=== PATIENT | male | born 1970 | race Caucasian/White ===

== ENCOUNTER 2016-08-04 00:51 | Inpatient (IN) ==
[2016-08-04] MEDS ORDERED: Ipratropium/Albuterol Neb 3 ML IH ONE (01:46)
[2016-08-04] MEDS ORDERED: methylPREDNISolone 125 MG/2 ML VIAL IVP ONE (01:46)
--- NOTE | 2016-08-04 01:50 | Emergency Department Note ---
Disposition Clinical Impression: COPD with acute exacerbation Disposition: Admitted As Inpatient Condition: Fair SOB HPI - General Chief Complaint: ED Shortness of Breath/Dyspnea Stated Complaint: MANOJ/COPD Time Seen by Provider: 08/04/16 01:14 Source: patient Limitations: no limitations Nursing Notes Reviewed: Yes Vital Signs Reviewed: Yes - History of Present Illness Javad is a 45-year-old male with a history of oxygen-dependent COPD who presents emergency Department with a chief complaint of dyspnea. This has been progressive over the last day. He has recently had a cough and URI symptoms. He states even the slightest exertion gets him short of breath. He has a history of COPD and is on the lung transplant list at [facility]. He is a former smoker but has not smoked for 5 years. He was oxygen continuously. He has had no fevers or chills. No productive cough. No history of DVT or PE. Denies any lower extremity swelling. Denies any abdominal pain, nausea or vomiting. Denies any chest pressure pain. No history of coronary artery disease. Denies any lightheadedness or syncopy. Consistency/Duration: constant Cough present: Yes - Related Data Home Medications Medication Instructions Recorded Confirmed Albuterol Neb [Proventil Neb] 2.5 mg IH Q4HR PRN 06/05/15 07/11/16 ClonazePAM [Klonopin] 0.5 mg PO BID 06/05/15 07/11/16 Docusate [Colace] 100 mg PO DAILY PRN 06/05/15 07/11/16 Glimepiride [Amaryl] 2 mg PO DAILY 06/05/15 07/11/16 Metformin HCl [Glumetza] 500 mg PO BID 06/05/15 07/11/16 Metoprolol [Lopressor] 100 mg PO BID 06/05/15 07/11/16 OxyCODONE/APAP 10/325 [Percocet 1 each PO Q6H PRN 06/05/15 07/11/16 10/325] Ranitidine HCl [Zantac] 150 mg PO BID 06/05/15 07/11/16 Roflumilast [Daliresp] 500 mcg PO DAILY 06/05/15 07/11/16 Tobramycin for INHALATION [Bebeto 5 ml IH Q12HR 06/05/15 07/11/16 300 mg/5 ml Solution] Zolpidem [Ambien] 5 mg PO HS 06/05/15 07/11/16 Aspirin 81 mg PO DAILY 11/16/15 07/11/16 Albuterol Sulfate [Proair Hfa] 2 puff IH Q4H PRN 02/27/16 07/11/16 Loratadine [Claritin] 10 mg PO DAILY PRN 02/27/16 07/11/16 Oxygen 3 l NS AD 02/27/16 07/11/16 Potassium Chloride [K-Tab ER] 10 meq PO DAILY 02/27/16 07/11/16 Simvastatin [Zocor] 40 mg PO HS 02/27/16 07/11/16 Previous Rx's Medication Instructions Recorded Budesonide/Formoterol 160/4.5 2 puff IH BIDR 5 Days 11/07/15 [Symbicort 160/4.5] Losartan [Cozaar] 25 mg PO DAILY tablet 11/07/15 Amoxicillin/Clavulanate [Augmentin] 875 mg PO BIDWM #8 tablet 07/15/16 Lactobacillus [Culturelle] 1 each PO BID #8 cap.sprink 07/15/16 Levofloxacin [Levaquin] 750 mg PO DAILY #4 tablet 07/15/16 PredniSONE 10 mg PO BIDWM #8 tablet 07/15/16 Allergies Allergy/AdvReac Type Severity Reaction Status Date / Time tiotropium Allergy Hives Verified 02/27/16 14:47 [From Spiriva with HandiHaler] All systems ED: reviewed and negative except as stated. Constitutional: Denies: fever Cardiovascular: Reports: dyspnea on exertion. Denies: chest pain, syncope Respiratory: Reports: cough, dyspnea, wheezes Gastrointestinal: Denies: abdominal pain, nausea, vomiting Musculoskeletal: Denies: back pain, neck pain Integumentary: Denies: rash Neurological: Denies: headache, weakness, numbness Past Medical History - Past Medical History Medical history: Reports: arthritis, asthma, COPD, coronary artery disease, diabetes, GERD, hyperlipidemia, hypertension Surgical history: Reports: angioplasty/stent, herniorrhaphy, orthopedic, other ( Left rotator cuff repair) Psychiatric history: Reports: anxiety - Social History Smoking Status: Former smoker Smokeless Tobacco Status: No Alcohol use: Reports: rarely Drug use: Reports: other Physical Exam General: Appears well, alert and oriented x 3. Talking in short sentences but otherwise pleasant Cardiovascular: Tachycardic between 95 and 105.. S1, S2. No murmurs, rubs or gallops. Respiratory: Coarse breath sounds with end-expiratory wheezing. Mild to moderate respiratory distress. No retractions. No abdominal breathing. Occasional dry cough. Abdomen: Soft, nontender. No guarding, rebound or rigidity. Eyes: conjunctiva clear HENT: Normocephalic, no signs of head injury. No oral mucosal lesions. Moist mucous membranes Neuro: Alert and oriented 3 Musculoskeletal: No joint tenderness or swelling. No calf tenderness, asymmetry or signs of DVT Skin: No lesions. No diaphoresis. Normal turgor. Normal color Psych: Appropriate - General Limitations: no limitations General appearance: alert, in no apparent distress Course Course Narrative: 45-year-old oxygen dependent male presents to the emergency department with dyspnea. On exam bilateral expiratory wheezing and moderate respiratory distress. He was given 3 breathing treatments, Solu-Medrol, antibiotics with some improvement. He was tachycardic around 115 so we did order a d-dimer which was not elevated. Chest x-ray shows some chronic changes but no evidence of infection or other acute process. Despite treatment patient is not improving enough to be comfortable with discharge home. Patient agrees with this and thinks he would benefit from staying. He is requiring more oxygen than normal to keep up his oxygen saturation. Plan to admit for COPD exacerbation. Vital Signs Temperature 98.2 F 08/04/16 00:52 Pulse Rate 116 08/04/16 00:52 Respiratory Rate 24 08/04/16 00:52 Blood Pressure 136/88 08/04/16 00:52 O2 Sat by Pulse Oximetry 94 L 08/04/16 00:52 Temperature 98.2 F 08/04/16 00:52 Pulse Rate 102 08/04/16 05:30 Respiratory Rate 24 08/04/16 05:30 Blood Pressure 148/91 08/04/16 05:30 O2 Sat by Pulse Oximetry 95 08/04/16 05:30 Oxygen Delivery Oxygen Delivery Nasal Cannula Shortness of Breath/Dyspnea - Lab Data Result diagrams: 08/04/16 01:56 08/04/16 01:56 Lab Results 08/04/16 08/04/16 08/04/16 Range/Units 01:56 01:56 01:56 WBC 11.3 H (4.3-11.1) K/mcL RBC 4.70 (4.19-5.50) M/mcL Hgb 13.3 (12.9-16.9) g/dL Hct 43.8 (37.5-50.1) % MCV 93.2 (83.0-100.0) fL MCH 28.3 (28.0-33.3) pg MCHC 30.4 L (31.6-35.5) g/dL RDW 13.2 (11.5-14.5) % Plt Count 211 (140-400) K/mcL MPV 11.0 (9.4-12.4) fL Immature Gran % 0.4 (0-4) % Seg Neutrophils % 77.8 % Lymphocytes % 12.6 % Monocytes % 7.5 % Eosinophils % 1.5 % Basophils % 0.2 % Neutrophils # 8.8 (1.6-8.9) K/mcL Lymphocytes # 1.4 (0.6-4.6) K/mcL Monocytes # 0.9 (0.0-1.3) K/mcL Eosinophils # 0.2 (0.0-0.6) K/mcL Basophils # 0.0 (0.0-0.2) K/mcL D-Dimer (0-500) ng/mLFEU Sodium 143 (136-145) mEq/L Potassium 4.2 (3.5-4.5) mEq/L Chloride 105 (98-109) mEq/L Carbon Dioxide 31 H (19-29) mEq/L BUN 12 (8-26) mg/dL Creatinine 0.69 L (0.72-1.25) mg/dL Est GFR ( Amer) > 60 (> 60) Est GFR (Non-Af Amer) > 60 (> 60) BUN/Creatinine Ratio 17 (6-26) Glucose 96 (70-99) mg/dL Calculated Osmolality 296 (280-300) Calcium 9.2 (8.6-10.8) mg/dL Troponin I 0.02 (0-0.03) ng/mL 08/04/16 Range/Units 01:56 WBC (4.3-11.1) K/mcL RBC (4.19-5.50) M/mcL Hgb (12.9-16.9) g/dL Hct (37.5-50.1) % MCV (83.0-100.0) fL MCH (28.0-33.3) pg MCHC (31.6-35.5) g/dL RDW (11.5-14.5) % Plt Count (140-400) K/mcL MPV (9.4-12.4) fL Immature Gran % (0-4) % Seg Neutrophils % % Lymphocytes % % Monocytes % % Eosinophils % % Basophils % % Neutrophils # (1.6-8.9) K/mcL Lymphocytes # (0.6-4.6) K/mcL Monocytes # (0.0-1.3) K/mcL Eosinophils # (0.0-0.6) K/mcL Basophils # (0.0-0.2) K/mcL D-Dimer 459 (0-500) ng/mLFEU Sodium (136-145) mEq/L Potassium (3.5-4.5) mEq/L Chloride (98-109) mEq/L Carbon Dioxide (19-29) mEq/L BUN (8-26) mg/dL Creatinine (0.72-1.25) mg/dL Est GFR ( Amer) (> 60) Est GFR (Non-Af Amer) (> 60) BUN/Creatinine Ratio (6-26) Glucose (70-99) mg/dL Calculated Osmolality (280-300) Calcium (8.6-10.8) mg/dL Troponin I (0-0.03) ng/mL - EKG Data EKG results narrative: EKG shows a sinus tachycardia with a rate of [address] elevation or depression. No ischemic T-wave changes. Normal axis. Previous EKG on 2010 shows similar wave morphology and tachycardia without any acute ischemic changes Attestation Statement - Attestation Attestation: Dr Farrell note: Pt seen in conjunction w/ Resident Dr Jin Hines; Please see his charting for complete documentation; I agree w/ pt's treatment and disposition and spent face to face time with the pt; x ray results reviewed; no focal process; sats stable @ time of admission; no fever/chest pain; o2 dependend @ home for years ;
[2016-08-04 02:02] LABS: Basophils % 0.2 %; Eosinophils # 0.2 K/mcL (0.0-0.6); Eosinophils % 1.5 %; Hematocrit 43.8 % (37.5-50.1); Hemoglobin 13.3 g/dL (12.9-16.9); Immature Granulocytes % 0.4 % (0-4); Lymphocytes # 1.4 K/mcL (0.6-4.6); Lymphocytes % 12.6 %; Mean Corpuscular HGB Conc 30.4 g/dL (31.6-35.5); Mean Corpuscular Hemoglobin 28.3 pg (28.0-33.3); Mean Corpuscular Volume 93.2 fL (83.0-100.0); Monocytes # 0.9 K/mcL (0.0-1.3); Monocytes % 7.5 %; Neutrophils # 8.8 K/mcL (1.6-8.9); Platelet Count 211 K/mcL (140-400); Red Cell Distribution Width 13.2 % (11.5-14.5); Segmented Neutrophils % 77.8 %
[2016-08-04 02:15] LABS: BUN/Creatinine Ratio 17 (6-26); Blood Urea Nitrogen 12 mg/dL (8-26); Carbon Dioxide 31 mEq/L (19-29); Chloride 105 mEq/L (98-109); Potassium 4.2 mEq/L (3.5-4.5); Sodium 143 mEq/L (136-145); eGFR For African Americans > 60 (> 60)
[2016-08-04 02:16] LABS: Calcium 9.2 mg/dL (8.6-10.8); Glucose 96 mg/dL (70-99); Osmolality,Calculated 296 (280-300); eGFR For Non-African Americans > 60 (> 60)
[2016-08-04] MEDS ORDERED: Levofloxacin 750 MG/150 ML 750 MG/150 ML BAG IVPB ONE (03:18)
[2016-08-04] MEDS ORDERED: *HR* OxyCODONE/APAP 5/325 TABLET PO ONE (04:54)
[2016-08-04] MEDS ORDERED: Naloxone 0.4 MG/ML INJ IVP PRN (07:16)
[2016-08-04] MEDS ORDERED: D5% in Water 1,000 ML IV PRN (07:22)
[2016-08-04] MEDS ORDERED: Ondansetron 4 MG/2 ML VIAL IVP PRN (07:22)
[2016-08-04] MEDS ORDERED: Acetaminophen 325 MG TABLET PO PRN (07:22)
[2016-08-04] MEDS ORDERED: Dextrose Gel 15 GM PO PRN ×2 (07:22)
[2016-08-04] MEDS ORDERED: Ipratropium/Albuterol Neb 3 ML IH PRN (07:22)
[2016-08-04] MEDS ORDERED: *HR* Dextrose 50 % in Water (Syg) 50 ML SYRINGE IVP PRN (07:22)
[2016-08-04] MEDS ORDERED: hydrALAZINE 25 MG TABLET PO PRN (07:52)
--- NOTE | 2016-08-04 08:02 | Internal Med History&Physical ---
Date of Encounter: 08/04/16 Time of Encounter: 07:30 Assessment and Plan (1) Acute exacerbation of chronic obstructive airways disease Current visit: Yes Status: Acute History of COPD with known advanced cystic bronchiectasis, oxygen dependent on 2 L. Patient follows at [facility] as a lung transplant candidate. His last hospitalization for COPD exacerbation was on 07/11/2016, he was admitted to [facility] and was treated with IV Zosyn and IV Levaquin for 3 days. Chest x -ray at that time showed no acute process, chronic areas of consolidation with known bronchiectasis in the right upper lobe, right middle lobe and left upper lobe. He went home but never recovered. Last Wednesday, his symptoms worsen and he developed persistent productive cough associated with progressive shortness of breath and the need to take a deep breath after a few steps. He has a pulse oximeter at home and it read 76% on his usual 2 L of oxygen via NC so he had to bump it up to 3 L. patient also reports dealing with chronic sinusitis for the past 6 months. Chest x-ray shows bibasilar atelectasis. EKG showed sinus tachycardia heart rate 110, no acute ischemic changes. Troponin negative 1. WBC 11.3. Check CT of the chest without contrast to rule out pneumonia given recent hospitalization for COPd exacerbation without complete resolution of symptoms. Albuterol/Atrovent nebulizations every 4 hours. Mucinex. mucomyst nebs. Symbicort. Doxycycline. (2) Community acquired pneumonia Current visit: Yes Status: Suspected plan as above. (3) Bronchiectasis Current visit: No Status: Chronic plan as above. Qualifiers: Bronchiectasis type: with acute exacerbation Qualified Code(s): J47.1 - Bronchiectasis with (acute) exacerbation (4) Coronary artery disease Current visit: Yes Status: Chronic stable. continue aspirin, metoprolol and statin. Qualifiers: Coronary Disease-Associated Artery/Lesion type: unspecified vessel or lesion type [place] vs. transplanted heart: [place] heart Associated angina: without angina Qualified Code(s): I25.10 - Atherosclerotic heart disease of [place] coronary artery without angina pectoris (5) Chronic hypoxemic respiratory failure Current visit: No Status: Chronic patient uses 2L NC for the past 4 years. (6) DM type 2 (diabetes mellitus, type 2) Current visit: No Status: Chronic ISS. diabetic diet. Qualifiers: Diabetes mellitus complication status: without complication Diabetes mellitus custodial insulin use: without custodial use Qualified Code(s): E11.9 - Type 2 diabetes mellitus without complications (7) Hypertension Current visit: No Status: Chronic controlled. losartan home dose. Qualifiers: Hypertension type: essential hypertension Qualified Code(s): I10 - Essential (primary) hypertension Internal Medicine - H&P: HPI Chief complaint: shortness of breath and productive cough since Wednesday. Admitted From: Home Plans for Post Hospital Care: Home History of present illness: Mr. Andres is a 45 year old male with past medical history of COPD with advanced cystic bronchiectasis, oxygen dependent on 2 L, diabetes mellitus, CAD s/p stent, hypertension and hyperlipidemia. Patient follows at [facility] as a lung transplant candidate. His last hospitalization for COPD exacerbation was on , he was admitted to [facility] and was treated with IV Zosyn and IV Levaquin for 3 days. Chest x-ray at that time showed no acute process, chronic areas of consolidation with known bronchiectasis in the right upper lobe, right middle lobe and left upper lobe. He went home but never recovered. Last Wednesday, his symptoms worsen and he developed persistent productive cough associated with progressive shortness of breath and the need to take a deep breath after a few steps. He has a pulse oximeter at home and it read 76% on his usual 2 L of oxygen via NC so he had to bump it up to 3 L. patient also reports dealing with chronic sinusitis for the past 6 months. No chest pain. No syncope. No palpitations. No bleeding. No abdominal pain. No nausea. No vomiting. No change in bowel movement. No urinary complaints. No headaches. No focal deficit. Past Med Surg Social Fam HX - Past Medical History Medical history: arthritis, asthma, COPD, coronary artery disease, diabetes, GERD, hyperlipidemia, hypertension Psychiatric history: anxiety - Past Surgical History Surgical History: angioplasty/stent, herniorrhaphy, orthopedic, other (Left rotator cuff repair) - Social History Smoking Status: Former smoker Smokeless Tobacco Status: No Alcohol use: rarely Drug use: other - Family History Mother Living Status: Hx Family Cancer: Yes (breast) Hx Family Autoimmune Disorders: Yes (Rheumatiod arthritis) Father Adopted: No Family Member Ethnicity: Non- Living Status: Hx Family Respiratory Disorders: Yes (COPD) Hx Family Endocrine Disorder: Yes (Diabetes) Internal Medicine - H&P: Meds Albuterol Neb [Proventil Neb] 2.5 mg IH Q4HR PRN 06/05/15 [History] ClonazePAM [Klonopin] 0.5 mg PO BID 06/05/15 [History] Docusate [Colace] 100 mg PO DAILY PRN 06/05/15 [History] Glimepiride [Amaryl] 2 mg PO DAILY 06/05/15 [History] Metformin HCl [Glumetza] 500 mg PO BID 06/05/15 [History] Metoprolol [Lopressor] 100 mg PO BID 06/05/15 [History] OxyCODONE/APAP 10/325 [Percocet 10325] 1 each PO Q6H PRN 06/05/15 [History] Ranitidine HCl [Zantac] 150 mg PO BID 06/05/15 [History] Roflumilast [Daliresp] 500 mcg PO DAILY 06/05/15 [History] Tobramycin for INHALATION [Bebeto 300 mg/5 ml Solution] 5 ml IH Q12HR 06/05/15 [ History] Zolpidem [Ambien] 5 mg PO HS 06/05/15 [History] Budesonide/Formoterol 160/4.5 [Symbicort 160/4.5] 2 puff IH BIDR 5 Days [Rx] Losartan [Cozaar] 25 mg PO DAILY tablet 11/07/15 [Rx] Aspirin 81 mg PO DAILY 11/16/15 [History] Albuterol Sulfate [Proair Hfa] 2 puff IH Q4H PRN 02/27/16 [History] Loratadine [Claritin] 10 mg PO DAILY PRN 02/27/16 [History] Oxygen 3 l NS AD 02/27/16 [History] Potassium Chloride [K-Tab ER] 10 meq PO DAILY 02/27/16 [History] Simvastatin [Zocor] 40 mg PO HS 02/27/16 [History] Amoxicillin/Clavulanate [Augmentin] 875 mg PO BIDWM #8 tablet 07/15/16 [Rx] Lactobacillus [Culturelle] 1 each PO BID #8 cap.sprink 07/15/16 [Rx] Levofloxacin [Levaquin] 750 mg PO DAILY #4 tablet 07/15/16 [Rx] PredniSONE 10 mg PO BIDWM #8 tablet 07/15/16 [Rx] Allergies tiotropium [From Spiriva with HandiHaler] Allergy (Verified 08/04/16 06:40) Hives All Systems PM: A 10-system review of systems was performed and is negative for pertinent findings except as documented above in the HPI. - Constitutional Vitals: Temp Pulse Resp BP Pulse Ox 98.2 F 102 20 144/91 95 08/04/16 00:52 08/04/16 05:30 08/04/16 06:18 08/04/16 06:18 08/04/16 05:30 General appearance: Present: cooperative, mild distress, A&O X 3, morbidly obese , pleasant, answers questions appropriately - Eye Eye exam: Present: PERRL, sclera anicteric - Neck Neck exam general surgery: Present: supple, trachea midline. Absent: lymphadenopathy - Respiratory Additional comments: Left lung: Diffuse wheezing, diminished air entry. Right lung: Dry crackles, diffusely. Diminished air entry. - Cardiovascular Cardiovascular exam: Present: tachycardia - GI/Abdominal GI/Abdominal exam: Present: normal bowel sounds, soft. Absent: distended, tenderness - Extremities Exam Extremities exam: Present: radial pulses palpable and symetrical. Absent: cyanotic, joint swelling, mottling, pedal edema - Back Exam Back exam: Absent: CVA tenderness (L), CVA tenderness (R) - Neurological Exam Neurological exam: Present: alert, oriented X3, no focal deficits. Absent: facial droop, speech deficit Internal Med - H&P Results - Labs CBC & Chem 7: 08/04/16 01:56 08/04/16 01:56
[2016-08-04] MEDS: Doxycycline 100 MG CAPSULE PO SCH ×2 (08:30→16:41)
[2016-08-04] MEDS: Aspirin 81 MG TAB.CHEW PO SCH (08:30)
[2016-08-04] MEDS: Insulin LISPRO 300 UNITS/3 ML VIAL SQ SCH ×4 (08:30→22:11)
[2016-08-04] MEDS: *HR* OxyCODONE/APAP 10/325 TABLET PO PRN ×3 (11:27→23:53)
[2016-08-04] MEDS: Ipratropium/Albuterol Neb 3 ML IH SCH ×5 (11:41→23:17)
[2016-08-04] MEDS: Acetylcysteine 10% 2 ML INHSOL IH SCH ×3 (11:42→23:17)
[2016-08-04] MEDS: Budesonide/Formoterol 160/4.5 MDI IH SCH ×2 (11:46→22:03)
--- NOTE | 2016-08-04 13:01 | Electrocardiograph Report ---
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
[2016-08-04] MEDS: *HR* Heparin 5,000 UNIT/ML VIAL SQ SCH (16:41)
[2016-08-04] MEDS: MethylPREDNISolone 40 MG/ML VIAL IVP SCH (16:42)
[2016-08-05] MEDS: Ipratropium/Albuterol Neb 3 ML IH SCH ×5 (04:41→20:58)
[2016-08-05 06:04] LABS: Basophils % 0.1 %; Hematocrit 43.5 % (37.5-50.1); Hemoglobin 13.2 g/dL (12.9-16.9); Immature Granulocytes % 0.5 % (0-4); Lymphocytes # 1.3 K/mcL (0.6-4.6); Mean Corpuscular HGB Conc 30.3 g/dL (31.6-35.5); Mean Corpuscular Hemoglobin 28.8 pg (28.0-33.3); Mean Platelet Volume 12.8 fL (9.4-12.4); Monocytes # 1.3 K/mcL (0.0-1.3); Monocytes % 6.8 %; Neutrophils # 16.4 K/mcL (1.6-8.9); Platelet Count 159 K/mcL (140-400); Red Blood Count 4.58 M/mcL (4.19-5.50); Red Cell Distribution Width 13.5 % (11.5-14.5); Segmented Neutrophils % 85.6 %
[2016-08-05 06:23] LABS: BUN/Creatinine Ratio 28 (6-26); Blood Urea Nitrogen 19 mg/dL (8-26); Calcium 9.3 mg/dL (8.6-10.8); Carbon Dioxide 27 mEq/L (19-29); Chloride 104 mEq/L (98-109); Glucose 221 mg/dL (70-99); Magnesium 1.7 mg/dL (1.6-2.6); Osmolality,Calculated 303 (280-300); Potassium 4.1 mEq/L (3.5-4.5); Sodium 142 mEq/L (136-145); eGFR For African Americans > 60 (> 60); eGFR For Non-African Americans > 60 (> 60)
[2016-08-05] MEDS: *HR* Heparin 5,000 UNIT/ML VIAL SQ SCH ×2 (06:27→17:17)
[2016-08-05] MEDS: *HR* OxyCODONE/APAP 10/325 TABLET PO PRN ×3 (06:27→19:26)
[2016-08-05] MEDS: Budesonide/Formoterol 160/4.5 MDI IH SCH ×2 (07:58→20:58)
[2016-08-05] MEDS: Acetylcysteine 10% 2 ML INHSOL IH SCH ×2 (07:58→15:00)
[2016-08-05] MEDS: Insulin LISPRO 300 UNITS/3 ML VIAL SQ SCH ×4 (09:15→22:42)
[2016-08-05] MEDS: Aspirin 81 MG TAB.CHEW PO SCH (09:20)
[2016-08-05] MEDS: Doxycycline 100 MG CAPSULE PO SCH (09:20)
[2016-08-05] MEDS: MethylPREDNISolone 40 MG/ML VIAL IVP SCH ×3 (09:21→22:37)
--- NOTE | 2016-08-05 13:41 | Internal Med Progress Note ---
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 start cefepime (prior culture February Pseudomonas resistant to cipro) discontinue doxycycline increase dose of solumedrol to 40 mg q6h may benefit from inhaled tobramycin as outpatient Is on [facility] lung transplant list high risk of resp failure (2) Bronchiectasis Current Visit: No Status: Chronic Qualifiers: Bronchiectasis type: with acute exacerbation Qualified Code(s): J47.1 - Bronchiectasis with (acute) exacerbation (3) DM type 2 (diabetes mellitus, type 2) Current Visit: No Status: Chronic Assessment and plan: ISS Qualifiers: Diabetes mellitus complication status: without complication Diabetes mellitus penitentiary insulin use: without dispatcher radio use Qualified Code(s): E11.9 - Type 2 diabetes mellitus without complications (4) Hyperlipidemia Current Visit: No Status: Chronic Qualifiers: Hyperlipidemia type: unspecified Qualified Code(s): E78.5 - Hyperlipidemia , unspecified (5) Hypertension Current Visit: No Status: Chronic Assessment and plan: stable on hydralazine as needed Qualifiers: Hypertension type: essential hypertension Qualified Code(s): I10 - Essential (primary) hypertension (6) ELIOT (obstructive sleep apnea) Current Visit: No Status: Chronic - Subjective Interval history: the patient is still bringing up greyish phlegm , very SOB, denies CP , no fever , no abdominal pain or dysuria - Constitutional Vitals: Temp Pulse Resp BP Pulse Ox 97.7 F 74 16 132/84 97 08/05/16 10:49 08/05/16 10:49 08/05/16 11:13 08/05/16 10:49 08/05/16 11:13 General appearance: Present: cooperative, mild distress, A&O X 3, morbidly obese , pleasant, answers questions appropriately - Head Head exam: Present: atraumatic, normocephalic - Eye Eye exam: Present: PERRL, conjuntiva pink, sclera anicteric Pupils: Present: PERRL - Neck Neck exam general surgery: Present: supple, trachea midline. Absent: lymphadenopathy - Respiratory Respiratory exam: Present: CTAB, wheezes (right upper lung wheezing and crackles ). Absent: accessory muscle use, rales, rhonchi - Cardiovascular Cardiovascular exam: Present: RRR, +S1, +S2. Absent: diastolic murmur, gallop, rubs, systolic murmur - GI/Abdominal GI/Abdominal exam: Present: normal bowel sounds, soft, no peritoneal signs. Absent: distended, tenderness - Extremities Exam Extremities exam: Present: warm, radial pulses palpable and symetrical. Absent : calf tenderness, cyanotic, pedal edema - Neurological Exam Neurological exam: Present: CN II-XII intact, oriented X3, no focal deficits. Absent: pronater drift, facial droop, speech deficit - Skin Skin exam: Present: dry, intact Internal Medicine: Result - Labs CBC & Chem 7: 08/05/16 04:40 08/05/16 04:40 Labs: Short CBC 08/05/16 Range/Units 04:40 WBC 19.1 H D (4.3-11.1) K/mcL Hgb 13.2 (12.9-16.9) g/dL Hct 43.5 (37.5-50.1) % Plt Count 159 (140-400) K/mcL Neutrophils # 16.4 H (1.6-8.9) K/mcL BMP 08/05/16 04:40 Sodium 142 Potassium 4.1 Chloride 104 Carbon Dioxide 27 BUN 19 Creatinine 0.69 L Glucose 221 H Calcium 9.3 - ABG Interpretation ABG results: PT/INR, D-dimer D-Dimer 459 ng/mLFEU (0-500) 08/04/16 01:56 Consult Discharge Plan - Plan Referrals: Madeline Sutton PRESCHOOL ASSISTANT TEACHER [Advanced Practice Nurse] - 08/14/16 11:30 am
[2016-08-05] MEDS: Cefepime HCl 1,000 MG in D5% in Water (Mini-Bag+) 100 ML IVPB SCH (14:36)
[2016-08-05] MEDS: Furosemide 40 MG TABLET PO SCH (14:37)
[2016-08-05] MEDS ORDERED: Sodium Chloride for inhalation 3 ML VIAL IH ONE (16:46)
[2016-08-06] MEDS: Ipratropium/Albuterol Neb 3 ML IH SCH ×7 (00:09→23:58)
[2016-08-06] MEDS: Acetylcysteine 10% 2 ML INHSOL IH SCH ×4 (00:09→20:25)
[2016-08-06] MEDS: *HR* OxyCODONE/APAP 10/325 TABLET PO PRN ×4 (01:42→21:08)
[2016-08-06] MEDS: Cefepime HCl 1,000 MG in D5% in Water (Mini-Bag+) 100 ML IVPB SCH ×2 (01:42→14:06)
[2016-08-06] MEDS: MethylPREDNISolone 40 MG/ML VIAL IVP SCH ×4 (04:10→19:43)
[2016-08-06] MEDS: *HR* Heparin 5,000 UNIT/ML VIAL SQ SCH ×2 (05:54→17:53)
[2016-08-06 06:39] LABS: Hemoglobin 12.3 g/dL (12.9-16.9); Mean Corpuscular Hemoglobin 27.9 pg (28.0-33.3); Mean Platelet Volume 12.6 fL (9.4-12.4); Platelet Count 177 K/mcL (140-400); Red Blood Count 4.41 M/mcL (4.19-5.50); Red Cell Distribution Width 13.5 % (11.5-14.5)
[2016-08-06 06:53] LABS: BUN/Creatinine Ratio 26 (6-26); Blood Urea Nitrogen 18 mg/dL (8-26); Carbon Dioxide 32 mEq/L (19-29); Chloride 102 mEq/L (98-109); Glucose 134 mg/dL (70-99); Osmolality,Calculated 298 (280-300); Potassium 3.9 mEq/L (3.5-4.5); Sodium 142 mEq/L (136-145); eGFR For African Americans > 60 (> 60); eGFR For Non-African Americans > 60 (> 60)
[2016-08-06] MEDS: Insulin LISPRO 300 UNITS/3 ML VIAL SQ SCH ×4 (08:17→21:09)
[2016-08-06] MEDS: Budesonide/Formoterol 160/4.5 MDI IH SCH ×3 (08:21→20:25)
--- NOTE | 2016-08-06 09:18 | Internal Med Progress Note ---
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 Preliminary sputum culture Gram negative rods Continue cefepime day#2 (prior culture February Pseudomonas resistant to cipro) Continue solumedrol to 40 mg q6h may benefit from inhaled tobramycin as outpatient Is on [facility] lung transplant list high risk of resp failure (2) Bronchiectasis Current Visit: No Status: Chronic Qualifiers: Bronchiectasis type: with acute exacerbation Qualified Code(s): J47.1 - Bronchiectasis with (acute) exacerbation (3) DM type 2 (diabetes mellitus, type 2) Current Visit: No Status: Chronic Assessment and plan: ISS Qualifiers: Diabetes mellitus complication status: without complication Diabetes mellitus usp insulin use: without termite control service representative use Qualified Code(s): E11.9 - Type 2 diabetes mellitus without complications (4) Hyperlipidemia Current Visit: No Status: Chronic Qualifiers: Hyperlipidemia type: unspecified Qualified Code(s): E78.5 - Hyperlipidemia , unspecified (5) Hypertension Current Visit: No Status: Chronic Assessment and plan: stable on hydralazine as needed Qualifiers: Hypertension type: essential hypertension Qualified Code(s): I10 - Essential (primary) hypertension (6) ELIOT (obstructive sleep apnea) Current Visit: No Status: Chronic - Time Spent With Patient 25 - 35 minutes - Subjective Interval history: Patient reports that he is feeling better this morning. Still complains of wheezing, which is chronic. Requiring 3L O2, but more active today. Urinating well. Stooling well. - Constitutional Vitals: Temp Pulse Resp BP Pulse Ox 98.1 F 72 16 138/80 97 08/06/16 07:38 08/06/16 07:38 08/06/16 07:38 08/06/16 07:38 08/06/16 07:38 General appearance: Present: cooperative, mild distress, A&O X 3, morbidly obese , pleasant, answers questions appropriately - Head Head exam: Present: atraumatic, normocephalic - Eye Eye exam: Present: EOMI, PERRL, sclera anicteric - Neck Neck exam general surgery: Present: supple, trachea midline - Respiratory Respiratory exam: Present: rhonchi (right upper lung with crackles and rhonchi) , wheezes. Absent: accessory muscle use, respiratory distress, tachypnea - Cardiovascular Cardiovascular exam: Present: RRR, +S1, +S2. Absent: diastolic murmur, gallop, rubs, systolic murmur - GI/Abdominal GI/Abdominal exam: Present: normal bowel sounds, soft (obese), no peritoneal signs. Absent: distended, tenderness - Extremities Exam Extremities exam: Present: warm. Absent: cyanotic, pedal edema - Neurological Exam Neurological exam: Present: CN II-XII intact, oriented X3, no focal deficits. Absent: pronater drift, facial droop, speech deficit - Skin Skin exam: Present: dry, intact Internal Medicine: Result - Labs CBC & Chem 7: 08/06/16 05:10 08/06/16 05:10 Labs: Short CBC 08/06/16 Range/Units 05:10 WBC 16.0 H (4.3-11.1) K/mcL Hgb 12.3 L (12.9-16.9) g/dL Hct 41.0 (37.5-50.1) % Plt Count 177 (140-400) K/mcL BMP 08/06/16 05:10 Sodium 142 Potassium 3.9 Chloride 102 Carbon Dioxide 32 H BUN 18 Creatinine 0.68 L Glucose 134 H Calcium 9.0 - ABG Interpretation ABG results: PT/INR, D-dimer D-Dimer 459 ng/mLFEU (0-500) 08/04/16 01:56 Consult Discharge Plan - Plan Referrals: Madeline Sutton, KRAFT MILL OPERATOR [Advanced Practice Nurse] - 08/14/16 11:30 am - Attending Attestation I examined this patient and my medical decision-making was reviewed with the DISPATCH CLERK/PA/Advanced Practice Nurse/Resident Physician. I agree with the documented findings, disposition and treatment plan as described except to the extent set forth below. <Joseph Kohler H - Last Filed: 08/06/16 10:47> Date of Encounter: 08/06/16 - Assessment and plan (1) Acute exacerbation of chronic obstructive airways disease Current Visit: Yes Status: Acute (2) Bronchiectasis Current Visit: No Status: Chronic Qualifiers: Bronchiectasis type: with acute exacerbation Qualified Code(s): J47.1 - Bronchiectasis with (acute) exacerbation (3) DM type 2 (diabetes mellitus, type 2) Current Visit: No Status: Chronic Qualifiers: Diabetes mellitus complication status: without complication Diabetes mellitus usp insulin use: without usp use Qualified Code(s): E11.9 - Type 2 diabetes mellitus without complications (4) Hyperlipidemia Current Visit: No Status: Chronic Qualifiers: Hyperlipidemia type: unspecified Qualified Code(s): E78.5 - Hyperlipidemia , unspecified (5) Hypertension Current Visit: No Status: Chronic Qualifiers: Hypertension type: essential hypertension Qualified Code(s): I10 - Essential (primary) hypertension (6) ELIOT (obstructive sleep apnea) Current Visit: No Status: Chronic - Constitutional Vitals: Temp Pulse Resp BP Pulse Ox 98.1 F 72 16 138/80 97 08/06/16 07:38 08/06/16 07:38 08/06/16 07:38 08/06/16 07:38 08/06/16 07:38 Internal Medicine: Result - Labs CBC & Chem 7: 08/06/16 05:10 08/06/16 05:10 Labs: Short CBC 08/06/16 Range/Units 05:10 WBC 16.0 H (4.3-11.1) K/mcL Hgb 12.3 L (12.9-16.9) g/dL Hct 41.0 (37.5-50.1) % Plt Count 177 (140-400) K/mcL BMP 08/06/16 05:10 Sodium 142 Potassium 3.9 Chloride 102 Carbon Dioxide 32 H BUN 18 Creatinine 0.68 L Glucose 134 H Calcium 9.0 - ABG Interpretation ABG results: PT/INR, D-dimer D-Dimer 459 ng/mLFEU (0-500) 08/04/16 01:56 - Attending Attestation uses inhaled tobramycin at home already 2 weeks on and 2 weeks off await final culture report and sensitivity
[2016-08-06] MEDS: Furosemide 40 MG TABLET PO SCH (09:56)
[2016-08-06] MEDS: Aspirin 81 MG TAB.CHEW PO SCH (09:56)
[2016-08-07] MEDS: Cefepime HCl 1,000 MG in D5% in Water (Mini-Bag+) 100 ML IVPB SCH ×2 (02:09→12:46)
[2016-08-07] MEDS: MethylPREDNISolone 40 MG/ML VIAL IVP SCH ×4 (02:10→21:59)
[2016-08-07] MEDS: *HR* OxyCODONE/APAP 10/325 TABLET PO PRN ×4 (03:15→21:56)
[2016-08-07] MEDS: Ipratropium/Albuterol Neb 3 ML IH SCH ×5 (04:38→21:10)
[2016-08-07] MEDS: Acetylcysteine 10% 2 ML INHSOL IH SCH ×2 (04:38→16:06)
[2016-08-07] MEDS: *HR* Heparin 5,000 UNIT/ML VIAL SQ SCH ×2 (06:14→19:00)
[2016-08-07] MEDS: Budesonide/Formoterol 160/4.5 MDI IH SCH ×2 (07:30→21:10)
[2016-08-07] MEDS: Aspirin 81 MG TAB.CHEW PO SCH (09:19)
[2016-08-07] MEDS: Furosemide 40 MG TABLET PO SCH (09:19)
[2016-08-07] MEDS: Insulin LISPRO 300 UNITS/3 ML VIAL SQ SCH ×4 (09:27→22:00)
--- NOTE | 2016-08-07 10:17 | Internal Med Progress Note ---
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 Preliminary sputum culture Gram negative rods Continue cefepime day#3 (prior culture February Pseudomonas resistant to cipro) Decrease solumedrol 40 mg q6h down to TID Uses inhaled tobramycin as outpatient 2 weeks on and 2 weeks off ( used it last Wednesday) Is on [facility] lung transplant list high risk of resp failure (2) Bronchiectasis Current Visit: No Status: Chronic Qualifiers: Bronchiectasis type: with acute exacerbation Qualified Code(s): J47.1 - Bronchiectasis with (acute) exacerbation (3) DM type 2 (diabetes mellitus, type 2) Current Visit: No Status: Chronic Assessment and plan: ISS Qualifiers: Diabetes mellitus complication status: without complication Diabetes mellitus group home insulin use: without bridge contractor use Qualified Code(s): E11.9 - Type 2 diabetes mellitus without complications (4) Hyperlipidemia Current Visit: No Status: Chronic Qualifiers: Hyperlipidemia type: unspecified Qualified Code(s): E78.5 - Hyperlipidemia , unspecified (5) Hypertension Current Visit: No Status: Chronic Assessment and plan: stable on hydralazine as needed Qualifiers: Hypertension type: essential hypertension Qualified Code(s): I10 - Essential (primary) hypertension (6) ELIOT (obstructive sleep apnea) Current Visit: No Status: Chronic - Time Spent With Patient Greater than 35 minutes - Subjective Interval history: the patient is bringing up less greyish phlegm , less SOB, denies CP , no fever , no abdominal pain or dysuria - Constitutional Vitals: Temp Pulse Resp BP Pulse Ox 98.0 F 70 16 143/80 98 08/07/16 06:46 08/07/16 06:46 08/07/16 07:30 08/07/16 06:46 08/07/16 07:30 General appearance: Present: cooperative, mild distress, A&O X 3, morbidly obese , pleasant, answers questions appropriately - Head Head exam: Present: atraumatic, normocephalic - Eye Eye exam: Present: PERRL, conjuntiva pink, sclera anicteric Pupils: Present: PERRL - Neck Neck exam general surgery: Present: supple, trachea midline. Absent: lymphadenopathy - Respiratory Respiratory exam: Present: CTAB, rales (right mid clrackles and wheezing). Absent: accessory muscle use, rhonchi, wheezes - Cardiovascular Cardiovascular exam: Present: RRR, +S1, +S2. Absent: diastolic murmur, gallop, rubs, systolic murmur - GI/Abdominal GI/Abdominal exam: Present: normal bowel sounds, soft, no peritoneal signs. Absent: distended, tenderness - Extremities Exam Extremities exam: Present: warm, radial pulses palpable and symetrical. Absent : calf tenderness, cyanotic, pedal edema - Neurological Exam Neurological exam: Present: CN II-XII intact, oriented X3, no focal deficits. Absent: pronater drift, facial droop, speech deficit - Skin Skin exam: Present: dry, intact Internal Medicine: Result - Labs CBC & Chem 7: 08/06/16 05:10 08/06/16 05:10 - ABG Interpretation ABG results: PT/INR, D-dimer D-Dimer 459 ng/mLFEU (0-500) 08/04/16 01:56 Consult Discharge Plan - Plan Referrals: Madeline Sutton, EXCELLENCE CONSULTANT [Advanced Practice Nurse] - 08/14/16 11:30 am
[2016-08-07] MEDS: Furosemide 20 MG TABLET PO SCH (21:56)
[2016-08-08] MEDS: Acetylcysteine 10% 2 ML INHSOL IH SCH ×4 (01:12→23:28)
[2016-08-08] MEDS: Ipratropium/Albuterol Neb 3 ML IH SCH ×7 (01:12→23:27)
[2016-08-08] MEDS: Cefepime HCl 1,000 MG in D5% in Water (Mini-Bag+) 100 ML IVPB SCH ×2 (02:40→15:15)
[2016-08-08 03:57] LABS: Hematocrit 42.8 % (37.5-50.1); Mean Corpuscular HGB Conc 30.4 g/dL (31.6-35.5); Mean Corpuscular Hemoglobin 27.8 pg (28.0-33.3); Mean Corpuscular Volume 91.5 fL (83.0-100.0); Mean Platelet Volume 11.4 fL (9.4-12.4); Platelet Count 255 K/mcL (140-400); Red Blood Count 4.68 M/mcL (4.19-5.50); Red Cell Distribution Width 13.5 % (11.5-14.5)
[2016-08-08] MEDS: *HR* OxyCODONE/APAP 10/325 TABLET PO PRN ×4 (04:05→23:20)
[2016-08-08 04:09] LABS: BUN/Creatinine Ratio 34 (6-26); Blood Urea Nitrogen 26 mg/dL (8-26); Calcium 8.9 mg/dL (8.6-10.8); Carbon Dioxide 30 mEq/L (19-29); Chloride 102 mEq/L (98-109); Glucose 182 mg/dL (70-99); Osmolality,Calculated 303 (280-300); Sodium 142 mEq/L (136-145); eGFR For African Americans > 60 (> 60); eGFR For Non-African Americans > 60 (> 60)
[2016-08-08] MEDS: *HR* Heparin 5,000 UNIT/ML VIAL SQ SCH ×2 (06:05→17:15)
[2016-08-08] MEDS: Budesonide/Formoterol 160/4.5 MDI IH SCH ×2 (08:03→20:33)
[2016-08-08] MEDS: MethylPREDNISolone 40 MG/ML VIAL IVP SCH ×3 (09:19→20:43)
[2016-08-08] MEDS: Furosemide 40 MG TABLET PO SCH (09:20)
[2016-08-08] MEDS: Aspirin 81 MG TAB.CHEW PO SCH (09:20)
[2016-08-08] MEDS: Insulin LISPRO 300 UNITS/3 ML VIAL SQ SCH ×4 (09:22→20:44)
--- NOTE | 2016-08-08 15:37 | Internal Med Progress Note ---
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 Preliminary sputum culture Gram negative rods Continue cefepime day#4 (prior culture February Pseudomonas resistant to cipro) Decrease solumedrol 40 mg q6h down to TID Uses inhaled tobramycin as outpatient 2 weeks on and 2 weeks off ( used it last Wednesday) Is on [facility] lung transplant list high risk of resp failure (2) Bronchiectasis Current Visit: No Status: Chronic Qualifiers: Bronchiectasis type: with acute exacerbation Qualified Code(s): J47.1 - Bronchiectasis with (acute) exacerbation (3) DM type 2 (diabetes mellitus, type 2) Current Visit: No Status: Chronic Assessment and plan: ISS Qualifiers: Diabetes mellitus complication status: without complication Diabetes mellitus assisted insulin use: without qa automation developer use Qualified Code(s): E11.9 - Type 2 diabetes mellitus without complications (4) Hyperlipidemia Current Visit: No Status: Chronic Qualifiers: Hyperlipidemia type: unspecified Qualified Code(s): E78.5 - Hyperlipidemia , unspecified (5) Hypertension Current Visit: No Status: Chronic Assessment and plan: stable on hydralazine as needed Qualifiers: Hypertension type: essential hypertension Qualified Code(s): I10 - Essential (primary) hypertension (6) ELIOT (obstructive sleep apnea) Current Visit: No Status: Chronic - Time Spent With Patient Greater than 35 minutes - Subjective Interval history: The patient is feeling better today the patient is bringing up less greyish phlegm , less SOB, denies CP , no fever , no abdominal pain or dysuria - Constitutional Vitals: Temp Pulse Resp BP Pulse Ox 97.4 F L 65 16 160/94 97 08/08/16 10:53 08/08/16 10:53 08/08/16 14:21 08/08/16 14:21 08/08/16 14:21 General appearance: Present: cooperative, mild distress, A&O X 3, morbidly obese , pleasant, answers questions appropriately - Head Head exam: Present: atraumatic, normocephalic - Eye Eye exam: Present: PERRL, conjuntiva pink, sclera anicteric Pupils: Present: PERRL - Neck Neck exam general surgery: Present: supple, trachea midline. Absent: lymphadenopathy - Respiratory Respiratory exam: Present: CTAB, wheezes (Diffuse wheezing mostly on the right upper lung). Absent: accessory muscle use, rales, rhonchi - Cardiovascular Cardiovascular exam: Present: RRR, +S1, +S2. Absent: diastolic murmur, gallop, rubs, systolic murmur - GI/Abdominal GI/Abdominal exam: Present: normal bowel sounds, soft, no peritoneal signs. Absent: distended, tenderness - Extremities Exam Extremities exam: Present: warm, radial pulses palpable and symetrical. Absent : calf tenderness, cyanotic, pedal edema - Neurological Exam Neurological exam: Present: CN II-XII intact, oriented X3, no focal deficits. Absent: pronater drift, facial droop, speech deficit - Skin Skin exam: Present: dry, intact Internal Medicine: Result - Labs CBC & Chem 7: 08/08/16 03:43 08/08/16 03:43 Labs: Short CBC 08/08/16 Range/Units 03:43 WBC 16.7 H (4.3-11.1) K/mcL Hgb 13.0 (12.9-16.9) g/dL Hct 42.8 (37.5-50.1) % Plt Count 255 (140-400) K/mcL BMP 08/08/16 03:43 Sodium 142 Potassium 4.0 Chloride 102 Carbon Dioxide 30 H BUN 26 Creatinine 0.76 Glucose 182 H Calcium 8.9 - ABG Interpretation ABG results: PT/INR, D-dimer D-Dimer 459 ng/mLFEU (0-500) 08/04/16 01:56 - VTE Documentation of Mechanical Device: Venous foot pump, device Consult Discharge Plan - Plan Referrals: Madeline Sutton, DYE HOUSE WHEEL OPERATOR [Advanced Practice Nurse] - 08/14/16 11:30 am
[2016-08-08] MEDS: Furosemide 20 MG TABLET PO SCH (20:42)
[2016-08-09] MEDS: Cefepime HCl 1,000 MG in D5% in Water (Mini-Bag+) 100 ML IVPB SCH ×2 (03:21→17:12)
[2016-08-09] MEDS: Ipratropium/Albuterol Neb 3 ML IH SCH ×5 (03:55→20:42)
[2016-08-09] MEDS: *HR* OxyCODONE/APAP 10/325 TABLET PO PRN ×3 (05:39→18:38)
[2016-08-09] MEDS: *HR* Heparin 5,000 UNIT/ML VIAL SQ SCH ×2 (05:39→17:13)
[2016-08-09 07:35] LABS: BUN/Creatinine Ratio 42 (6-26); Blood Urea Nitrogen 29 mg/dL (8-26); Calcium 8.5 mg/dL (8.6-10.8); Carbon Dioxide 31 mEq/L (19-29); Chloride 102 mEq/L (98-109); Glucose 116 mg/dL (70-99); Osmolality,Calculated 297 (280-300); Potassium 3.6 mEq/L (3.5-4.5); Sodium 140 mEq/L (136-145); eGFR For African Americans > 60 (> 60); eGFR For Non-African Americans > 60 (> 60)
[2016-08-09] MEDS: Insulin LISPRO 300 UNITS/3 ML VIAL SQ SCH ×4 (08:00→20:23)
[2016-08-09 08:09] LABS: Hemoglobin 12.6 g/dL (12.9-16.9); Mean Corpuscular HGB Conc 30.7 g/dL (31.6-35.5); Mean Corpuscular Hemoglobin 28.1 pg (28.0-33.3); Mean Corpuscular Volume 91.3 fL (83.0-100.0); Mean Platelet Volume 12.1 fL (9.4-12.4); Platelet Count 221 K/mcL (140-400); Red Blood Count 4.49 M/mcL (4.19-5.50); Red Cell Distribution Width 13.3 % (11.5-14.5)
[2016-08-09] MEDS: MethylPREDNISolone 40 MG/ML VIAL IVP SCH (08:32)
[2016-08-09] MEDS: Aspirin 81 MG TAB.CHEW PO SCH (08:32)
[2016-08-09] MEDS: Furosemide 40 MG TABLET PO SCH (08:32)
[2016-08-09] MEDS: Acetylcysteine 10% 2 ML INHSOL IH SCH ×3 (08:50→20:43)
[2016-08-09] MEDS: Budesonide/Formoterol 160/4.5 MDI IH SCH ×2 (08:50→20:43)
--- NOTE | 2016-08-09 13:28 | Internal Med Progress Note ---
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 Preliminary sputum culture Gram negative rods, final report and sensitivity pending Continue cefepime day#5 (prior culture February Pseudomonas resistant to cipro) Decrease solumedrol 40 mg q6h down to TID, then BID , now Daily Uses inhaled tobramycin as outpatient 2 weeks on and 2 weeks off ( used it last Wednesday) Is on [facility] lung transplant list high risk of resp failure (2) Bronchiectasis Current Visit: No Status: Chronic Qualifiers: Bronchiectasis type: with acute exacerbation Qualified Code(s): J47.1 - Bronchiectasis with (acute) exacerbation (3) DM type 2 (diabetes mellitus, type 2) Current Visit: No Status: Chronic Assessment and plan: ISS Qualifiers: Diabetes mellitus complication status: without complication Diabetes mellitus terminal gauger supervisor insulin use: without retirement use Qualified Code(s): E11.9 - Type 2 diabetes mellitus without complications (4) Hyperlipidemia Current Visit: No Status: Chronic Qualifiers: Hyperlipidemia type: unspecified Qualified Code(s): E78.5 - Hyperlipidemia , unspecified (5) Hypertension Current Visit: No Status: Chronic Assessment and plan: stable on hydralazine as needed Qualifiers: Hypertension type: essential hypertension Qualified Code(s): I10 - Essential (primary) hypertension (6) ELIOT (obstructive sleep apnea) Current Visit: No Status: Chronic (7) Leg edema Current Visit: Yes Status: Acute Assessment and plan: likely due to mineralocorticoid effect of steroids Qualifiers: Laterality: bilateral Qualified Code(s): R60.0 - Localized edema - Time Spent With Patient Greater than 35 minutes - Subjective Interval history: The patient is feeling better than yesterday, bringing up less greyish phlegm , less SOB, denies CP , no fever, no abdominal pain or dysuria - Constitutional Vitals: Temp Pulse Resp BP Pulse Ox 98.3 F 67 17 133/80 97 08/09/16 11:24 08/09/16 11:24 08/09/16 11:24 08/09/16 11:24 08/09/16 11:24 General appearance: Present: cooperative, mild distress, A&O X 3, morbidly obese , pleasant, answers questions appropriately - Head Head exam: Present: atraumatic, normocephalic - Eye Eye exam: Present: PERRL, conjuntiva pink, sclera anicteric Pupils: Present: PERRL - Neck Neck exam general surgery: Present: supple, trachea midline. Absent: lymphadenopathy - Respiratory Respiratory exam: Present: decreased breath sounds, CTAB. Absent: accessory muscle use, rales, rhonchi, wheezes - Cardiovascular Cardiovascular exam: Present: RRR, +S1, +S2. Absent: diastolic murmur, gallop, rubs, systolic murmur - GI/Abdominal GI/Abdominal exam: Present: normal bowel sounds, soft, no peritoneal signs. Absent: distended, tenderness - Extremities Exam Extremities exam: Present: warm, radial pulses palpable and symetrical. Absent : calf tenderness, cyanotic, pedal edema - Neurological Exam Neurological exam: Present: CN II-XII intact, oriented X3, no focal deficits. Absent: pronater drift, facial droop, speech deficit - Skin Skin exam: Present: dry, intact Internal Medicine: Result - Labs CBC & Chem 7: 08/09/16 07:09 08/09/16 07:09 Labs: Short CBC 08/09/16 Range/Units 07:09 WBC 16.5 H (4.3-11.1) K/mcL Hgb 12.6 L (12.9-16.9) g/dL Hct 41.0 (37.5-50.1) % Plt Count 221 (140-400) K/mcL BMP 08/09/16 07:09 Sodium 140 Potassium 3.6 Chloride 102 Carbon Dioxide 31 H BUN 29 H Creatinine 0.69 L Glucose 116 H Calcium 8.5 L - ABG Interpretation ABG results: PT/INR, D-dimer D-Dimer 459 ng/mLFEU (0-500) 08/04/16 01:56 - VTE Documentation of Mechanical Device: Venous foot pump, device Consult Discharge Plan - Plan Referrals: Madeline Sutton, JOB TRAINER [Advanced Practice Nurse] - 08/14/16 11:30 am
[2016-08-09] MEDS: Furosemide 20 MG TABLET PO SCH (20:24)
[2016-08-10] MEDS: Ipratropium/Albuterol Neb 3 ML IH SCH ×5 (00:32→16:19)
[2016-08-10] MEDS: *HR* OxyCODONE/APAP 10/325 TABLET PO PRN ×3 (01:07→14:32)
[2016-08-10] MEDS: Cefepime HCl 1,000 MG in D5% in Water (Mini-Bag+) 100 ML IVPB SCH ×2 (03:13→14:34)
[2016-08-10] MEDS: *HR* Heparin 5,000 UNIT/ML VIAL SQ SCH (06:01)
[2016-08-10] MEDS: Insulin LISPRO 300 UNITS/3 ML VIAL SQ SCH ×2 (07:36→11:29)
[2016-08-10] MEDS: Aspirin 81 MG TAB.CHEW PO SCH (07:45)
[2016-08-10] MEDS: Furosemide 40 MG TABLET PO SCH (07:45)
[2016-08-10] MEDS: Acetylcysteine 10% 2 ML INHSOL IH SCH ×2 (07:52→16:19)
[2016-08-10] MEDS: Budesonide/Formoterol 160/4.5 MDI IH SCH (07:52)
[2016-08-10] MEDS ORDERED: MethylPREDNISolone 40 MG/ML VIAL IVP SCH (09:00)
--- NOTE | 2016-08-10 10:16 | Discharge Summary ---
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/bronchitis (2) Bronchiectasis Priority: Secondary Status: Chronic Qualifiers: Bronchiectasis type: with acute exacerbation Qualified Code(s): J47.1 - Bronchiectasis with (acute) exacerbation (3) DM type 2 (diabetes mellitus, type 2) Priority: Secondary Status: Chronic Comments: steroid induced hyperglycemia Qualifiers: Diabetes mellitus complication status: without complication Diabetes mellitus long-term insulin use: without intermission coordinator use Qualified Code(s): E11.9 - Type 2 diabetes mellitus without complications (4) Hyperlipidemia Priority: Secondary Status: Chronic Qualifiers: Hyperlipidemia type: unspecified Qualified Code(s): E78.5 - Hyperlipidemia , unspecified (5) Hypertension Priority: Secondary Status: Chronic Qualifiers: Hypertension type: essential hypertension Qualified Code(s): I10 - Essential (primary) hypertension (6) ELIOT (obstructive sleep apnea) Priority: Secondary Status: Chronic (7) Leg edema Priority: Secondary Status: Acute Qualifiers: Laterality: bilateral Qualified Code(s): R60.0 - Localized edema - Discharge Medications Prescriptions: Cefepime HCl/Dextrose, Iso-Osm [Cefepime 1 gm Injection] 1 gm IV BID #10 mls Furosemide [Lasix] 20 mg PO DAILY #30 tablet PredniSONE 10 mg PO DAILY 12 Days Home Medications: Albuterol Neb [Proventil Neb] 2.5 mg IH Q4HR PRN 06/05/15 [History] ClonazePAM [Klonopin] 0.5 mg PO BID 06/05/15 [History] Docusate [Colace] 100 mg PO DAILY PRN 06/05/15 [History] Glimepiride [Amaryl] 2 mg PO DAILY 06/05/15 [History] Metformin HCl [Glumetza] 500 mg PO BID 06/05/15 [History] Metoprolol [Lopressor] 100 mg PO BID 06/05/15 [History] OxyCODONE/APAP 10/325 [Percocet 10/325] 1 each PO Q6H PRN 06/05/15 [History] Ranitidine HCl [Zantac] 150 mg PO BID 06/05/15 [History] Roflumilast [Daliresp] 500 mcg PO DAILY 06/05/15 [History] Tobramycin for INHALATION [Bebeto 300 mg/5 ml Solution] 5 ml IH Q12HR 06/05/15 [ History] Zolpidem [Ambien] 5 mg PO HS 06/05/15 [History] Budesonide/Formoterol 160/4.5 [Symbicort 160/4.5] 2 puff IH BIDR 5 Days [Rx] Losartan [Cozaar] 25 mg PO DAILY tablet 11/07/15 [Rx] Aspirin 81 mg PO DAILY 11/16/15 [History] Albuterol Sulfate [Proair Hfa] 2 puff IH Q4H PRN 02/27/16 [History] Loratadine [Claritin] 10 mg PO DAILY PRN 02/27/16 [History] Oxygen 3 l NS AD 02/27/16 [History] Potassium Chloride [K-Tab ER] 10 meq PO DAILY 02/27/16 [History] Simvastatin [Zocor] 40 mg PO HS 02/27/16 [History] Lactobacillus [Culturelle] 1 each PO BID #8 cap.sprink 07/15/16 [Rx] Cefepime HCl/Dextrose, Iso-Osm [Cefepime 1 gm Injection] 1 gm IV BID #10 mls [Rx] Furosemide [Lasix] 20 mg PO DAILY #30 tablet 08/10/16 [Rx] PredniSONE 10 mg PO DAILY 12 Days 08/10/16 [Rx] Allergies/Adverse Reactions: Allergies tiotropium [From Spiriva with HandiHaler] Allergy (Verified 08/04/16 09:18) Hives Date of admission: 08/04/16 13:43 Primary care physician: PCP NO Consults: 08/05/16 16:44 Consult to Respiratory Therapy [CONS] Routine Reason for Consult: induced sputum sample Call Completed: No 08/06/16 10:56 Consult to Physical Therapy [CONS] Routine Comment: Evaluate, develop and implement POC Consult to Replenishment Merchandising Associate [CONS] Routine Reason for SW Consult: discharge planning OT [Consult to Occupational Therapy] [CONS] Routine Comment: Evaluate, develop and implement POC 08/06/16 17:37 Consult to Respiratory Therapy [CONS] Routine Reason for Consult: Accapella therapy Call Completed: No - Patient Status Disposition: Home Health Service Condition: Fair Overall status at discharge: patient is progressing back to baseline - Discharge Instructions Follow Up With: Madeline Sutton, PHYLLIS [Advanced Practice Nurse] - 08/14/16 11:30 am Additional Instructions: Follow with primary care physician in 7 days. Continue prednisone taper. Complete 5 more days of IV cefepime. Continue inhaled tobramycin. Continue lasix for leg edema. - Diet and Activity Activity: wear oxygen at all times Diet: diabetic diet Hospital course: Mr. 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 Patient follows at [facility] as a lung transplant candidate. His last hospitalization for COPD exacerbation was on 07/11/2016, he was admitted to [facility] and was treated with IV Zosyn and IV Levaquin for 3 days. Chest x-ray at that time showed no acute process, chronic areas of consolidation with known bronchiectasis in the right upper lobe , right middle lobe and left upper lobe. He went home but never recovered. His symptoms worsened and he developed persistent productive cough associated with progressive shortness of breath and the need to take a deep breath after a few steps. Desaturated down to 76% on his usual 2 L of oxygen via NC. Chest x-ray shows bibasilar atelectasis. CT of the chest showed No evidence of pneumonia and stable multifocal moderate to severe cystic bronchiectasis ans parenchymal scarring within the right upper lobe . He was started on Solu-Medrol, and cefepime. Sputum culture was sent, the report just became available today and is showing Pseudomonas aureoginosa's misbah. Resistant to Cipro and Intermediate sensitivity to Levofloxacin. We will taper prednisone and send him on 5 more days of cefepime. Continue Inhaled tobramycin 2 weeks on and 2 weeks off. - Time Spent with Patient Total time spent providing and/or coordinating discharge services: Greater than 30 minutes (40 min) - Constitutional Vitals: Temp Pulse Resp BP Pulse Ox 97.7 F 81 16 103/65 96 08/10/16 06:35 08/10/16 06:35 08/10/16 07:52 08/10/16 07:52 08/10/16 07:52 General appearance: Present: cooperative, mild distress, A&O X 3, morbidly obese , pleasant, answers questions appropriately - Head Head exam: Present: atraumatic, normocephalic - Eye Eye exam: Present: PERRL, conjuntiva pink, sclera anicteric Pupils: Present: PERRL - Neck Neck exam general surgery: Present: supple, trachea midline. Absent: lymphadenopathy - Respiratory Respiratory exam: Present: CTAB, rales (right upper lung crackles). Absent: accessory muscle use, rhonchi, wheezes - Cardiovascular Cardiovascular exam: Present: RRR, +S1, +S2. Absent: diastolic murmur, gallop, rubs, systolic murmur - GI/Abdominal GI/Abdominal exam: Present: normal bowel sounds, soft, no peritoneal signs. Absent: distended, tenderness - Extremities Exam Extremities exam: Present: warm, radial pulses palpable and symetrical. Absent : calf tenderness, cyanotic, pedal edema - Neurological Exam Neurological exam: Present: CN II-XII intact, oriented X3, no focal deficits. Absent: pronater drift, facial droop, speech deficit - Skin Skin exam: Present: dry, intact - VTE Documentation of Mechanical Device: Venous foot pump, device
--- NOTE | 2016-08-10 10:38 | Physician Discharge Referral ---
Home Health/Hosp Referral Info Transfer to: Home Health Provider in Charge Post Discharge: PCP - Diagnosis (1) Acute exacerbation of chronic obstructive airways disease Status: Acute (2) Bronchiectasis Status: Chronic (3) DM type 2 (diabetes mellitus, type 2) Status: Chronic (4) Hyperlipidemia Status: Chronic (5) Hypertension Status: Chronic (6) ELIOT (obstructive sleep apnea) Status: Chronic (7) Leg edema Status: Acute - Respiratory Orders Oxygen / L per min Smoking Cessation: Smoking cessation has been advised. For more information, call the [place] Tobacco Quit Line at 7-272-ACDA-NOW. - Diet/Nutrition Diet/Nutrition Orders: No Added Salt (LOLITA) - Services Needed Home Care Orders: Follow with primary care physician in 7 days. Continue prednisone taper. Complete 5 more days of IV cefepime. Continue inhaled tobramycin.Continue lasix for leg edema - Transfer Medications Prescriptions: Cefepime HCl/Dextrose, Iso-Osm [Cefepime 1 gm Injection] 1 gm IV BID #10 mls Furosemide [Lasix] 20 mg PO DAILY #30 tablet PredniSONE 10 mg PO DAILY 12 Days Home Medications: Albuterol Neb [Proventil Neb] 2.5 mg IH Q4HR PRN 06/05/15 [History] ClonazePAM [Klonopin] 0.5 mg PO BID 06/05/15 [History] Docusate [Colace] 100 mg PO DAILY PRN 06/05/15 [History] Glimepiride [Amaryl] 2 mg PO DAILY 06/05/15 [History] Metformin HCl [Glumetza] 500 mg PO BID 06/05/15 [History] Metoprolol [Lopressor] 100 mg PO BID 06/05/15 [History] OxyCODONE/APAP 10/325 [Percocet 10/325] 1 each PO Q6H PRN 06/05/15 [History] Ranitidine HCl [Zantac] 150 mg PO BID 06/05/15 [History] Roflumilast [Daliresp] 500 mcg PO DAILY 06/05/15 [History] Tobramycin for INHALATION [Bebeto 300 mg/5 ml Solution] 5 ml IH Q12HR 06/05/15 [ History] Zolpidem [Ambien] 5 mg PO HS 06/05/15 [History] Budesonide/Formoterol 160/4.5 [Symbicort 160/4.5] 2 puff IH BIDR 5 Days [Rx] Losartan [Cozaar] 25 mg PO DAILY tablet 11/07/15 [Rx] Aspirin 81 mg PO DAILY 11/16/15 [History] Albuterol Sulfate [Proair Hfa] 2 puff IH Q4H PRN 02/27/16 [History] Loratadine [Claritin] 10 mg PO DAILY PRN 02/27/16 [History] Oxygen 3 l NS AD 02/27/16 [History] Potassium Chloride [K-Tab ER] 10 meq PO DAILY 02/27/16 [History] Simvastatin [Zocor] 40 mg PO HS 02/27/16 [History] Lactobacillus [Culturelle] 1 each PO BID #8 cap.sprink 07/15/16 [Rx] Cefepime HCl/Dextrose, Iso-Osm [Cefepime 1 gm Injection] 1 gm IV BID #10 mls [Rx] Furosemide [Lasix] 20 mg PO DAILY #30 tablet 08/10/16 [Rx] PredniSONE 10 mg PO DAILY 12 Days 08/10/16 [Rx] Allergies/Adverse Reactions: Allergies tiotropium [From Spiriva with HandiHaler] Allergy (Verified 08/04/16 09:18) Hives Certification: Further, I certify that my clinical findings support that this patient is homebound (i.e. absences from home require considerable and taxing effort and are for medical reasons or hindu services or infrequently or short duration when for other reasons) because: Homebound Reason: Patient requires assistance of a person or device to safely leave home Attestation: My signature below is to certify that this patient is under my care and that I, or nurse practitioner, or a physician's child life assistant working with me, has a face-to -face encounter with this patient.
[2016-08-10 14:43] VITALS: BP 130/76
== END 2016-08-10 16:22 | disposition home health service (06) | DRG 190 ==
LOC: 3ANU 00:51 → EMEROO 00:51 → 3ANU 07:32 → SUATTDRO 13:43
PROVIDERS: ADMIT Internal Medicine; ATTEND Internal Medicine

== ENCOUNTER 2017-11-01 16:56 | Inpatient (IN) ==
[2017-11-01] MEDS ORDERED: Ipratropium/Albuterol Neb 3 ML IH ONE (18:01)
[2017-11-01] MEDS ORDERED: methylPREDNISolone 125 MG/2 ML VIAL IVP ONE (18:01)
[2017-11-01] MEDS ORDERED: Albuterol 2.5 MG/3 ML NEBULIZER IH ONE (18:01)
[2017-11-01 18:15] LABS: Basophils # 0.1 K/mcL (0.0-0.2); Basophils % 0.2 %; Eosinophils # 0.1 K/mcL (0.0-0.6); Eosinophils % 0.4 %; Hematocrit 45.6 % (37.5-50.1); Immature Granulocytes % 0.4 % (0-4); Immature Platelets 4.5 % (1.1-6.1); Lymphocytes % 4.6 %; Mean Corpuscular HGB Conc 30.7 g/dL (31.6-35.5); Mean Corpuscular Hemoglobin 29.8 pg (28.0-33.3); Mean Platelet Volume 10.9 fL (9.4-12.4); Monocytes % 4.7 %; Neutrophils # 18.7 K/mcL (1.6-8.9); Platelet Count 237 K/mcL (140-400); Red Cell Distribution Width 13.2 % (11.5-14.5); Segmented Neutrophils % 89.7 %
[2017-11-01 18:20] LABS: INR 1.2; Prothrombin Time 13.3 Seconds (9.4-12.1)
[2017-11-01 18:23] LABS: Activated Partial Thrombo Time 31.3 Seconds (26.0-36.0)
[2017-11-01 18:38] LABS: BUN/Creatinine Ratio 16 (6-26); Blood Urea Nitrogen 9 mg/dL (6-20); Calcium 9.4 mg/dL (8.6-10.3); Carbon Dioxide 33 mEq/L (23-29); Chloride 101 mEq/L (98-107); Glucose 253 mg/dL (70-105); Osmolality,Calculated 299 (280-300); Potassium 4.1 mEq/L (3.5-5.1); Sodium 141 mEq/L (136-145); eGFR For African Americans > 60 (> 60); eGFR For Non-African Americans > 60 (> 60)
[2017-11-01 18:46] LABS: Troponin I 0.04 ng/mL (< 0.04)
--- NOTE | 2017-11-01 18:48 | Emergency Department Note ---
Disposition Clinical Impression: CAP (community acquired pneumonia) Qualifiers: Laterality: left Lung location: upper lobe of lung Qualified Code(s): J18.1 - Lobar pneumonia, unspecified organism Disposition: Admitted As Inpatient Condition: Fair Referrals: NONE,PCP [Primary Care Provider] - Forms: ED Satisfaction Letter Chest Pain HPI - General Chief Complaint: ED Chest Pain Stated Complaint: CP Source: patient Limitations: no limitations Vital Signs Reviewed: Yes Nursing Notes Reviewed: Yes - History of Present Illness HPI Narrative: 47-year-old male presents emergency Department with concerns of difficulty in breathing and chest pain. Patient states his difficulty in breathing and worsening over the past 24 hours. Today he was eating at [employer] when he had acute onset of chest pressure and difficulty in breathing. Patient states his difficulty breathing had continued since that time. Patient was initially satting 76% on evaluation in the emergency department. He was placed on 4 L of nasal cannula oxygen and O2 saturations improved to 94%. Patient stated that this feels different than his previous COPD exacerbations. However he does have diffuse wheezing present on his initial exam. Denies choking episode, denies syncopal episode, denies abdominal pain, diarrhea, burning with urination. Severity scale (1-10): 3 - Related Data Home Medications Medication Instructions Recorded Confirmed Albuterol Neb [Proventil Neb] 2.5 mg IH Q4HR PRN 06/05/15 11/01/17 ClonazePAM [Klonopin] 0.5 mg PO BID 06/05/15 11/01/17 Docusate [Colace] 100 mg PO DAILY PRN 06/05/15 11/01/17 Glimepiride [Amaryl] 2 mg PO DAILY 06/05/15 11/01/17 Metformin HCl [Glumetza] 500 mg PO BID 06/05/15 11/01/17 OxyCODONE/APAP 10/325 [Percocet 1 tab PO Q6H PRN 06/05/15 11/01/17 10/325] Roflumilast [Daliresp] 500 mcg PO DAILY 06/05/15 11/01/17 Tobramycin for INHALATION [Bebeto 5 ml IH Q12HR 06/05/15 11/01/17 300 mg/5 ml Solution] Zolpidem [Ambien] 5 mg PO HS 06/05/15 11/01/17 Albuterol Sulfate [Proair Hfa] 2 puff IH Q4H PRN 02/27/16 11/01/17 Oxygen 3 l NS AD 02/27/16 11/01/17 Potassium Chloride [K-Tab ER] 10 meq PO DAILY 02/27/16 11/01/17 Simvastatin [Zocor] 40 mg PO HS 02/27/16 11/01/17 Budesonide/Formoterol 160/4.5 2 puff IH BIDR PRN 08/27/17 11/01/17 [Symbicort 160/4.5] Furosemide [Lasix] 20 mg PO DAILY PRN 08/27/17 11/01/17 Famotidine [Pepcid] 40 mg PO DAILY 11/01/17 11/01/17 Lisinopril 30 mg PO DAILY 11/01/17 11/01/17 Meloxicam [Mobic] 15 mg PO DAILY 11/01/17 11/01/17 Metoprolol Succinate [Toprol Xl] 100 mg PO BID 11/01/17 11/01/17 Minocycline HCl [Minocin] 100 mg PO BID 11/01/17 11/01/17 [place]-3 Acid Ethyl Esters [Lovaza] 1 gm PO QID 11/01/17 11/01/17 Previous Rx's Medication Instructions Recorded Losartan [Cozaar] 25 mg PO DAILY tablet 11/07/15 Lactobacillus [Culturelle] 1 each PO BID #8 cap.sprink 07/15/16 Allergies Allergy/AdvReac Type Severity Reaction Status Date / Time tiotropium Allergy Hives Verified 09/05/16 23:50 [From Spiriva with HandiHaler] All systems ED: reviewed and negative except as stated. Review of Systems: As Per HPI Chest Pain PMH - Past Medical History Medical history: Reports: arthritis, asthma, COPD, coronary artery disease, diabetes, GERD, hyperlipidemia, hypertension Surgical history: Reports: angioplasty/stent, herniorrhaphy, orthopedic, other Psychiatric history: Reports: anxiety - Social History Smoking Status: Former smoker Alcohol use: Reports: rarely Drug use: Reports: none, other Physical Exam General: Alert and in no acute distress Skin: Warm, dry, intact Head: Normocephalic and atraumatic Neck: Supple, trachea midline and no tenderness Cardiovascular: Tachycardia, no murmur, normal perfusion Respiratory: diffuse wheezing present on exam in bilateral lung dee. Musculoskeletal: Normal strength, no tenderness, swelling or deformity GI: Soft, nontender, nondistended. Bowel sounds present Neuro: A&O to person, place, time and situation. No focal deficits noted on exam Psychiatric: cooperative and appropriate mood and affect. - General Limitations: no limitations General appearance: alert, in no apparent distress Course Vital Signs Temperature 99 F 11/01/17 17:22 Pulse Rate 124 11/01/17 17:22 Respiratory Rate 18 11/01/17 17:22 Blood Pressure 145/80 11/01/17 17:22 O2 Sat by Pulse Oximetry 78 11/01/17 17:22 Temperature 99 F 11/01/17 17:22 Pulse Rate 99 11/01/17 21:02 Respiratory Rate 21 11/01/17 21:02 Blood Pressure 141/89 11/01/17 21:02 O2 Sat by Pulse Oximetry 94 11/01/17 21:02 Oxygen Delivery Oxygen Delivery Nasal Cannula Chest Pain - MDM Narrative Medical decision making narrative: Initial troponin elevated at 0.04. Patient breathing improved after DuoNeb and albuterol emergency department. Patient will be admitted to the hospitalist for further care and evaluation secondary to his hypoxia. D-dimer elevated. CTA negative for acute mainstem PE. Likely has pneumonia with elevated leukocytosis and changes on chest x-ray and CTA. - Medical Records Medical records reviewed: Yes I reviewed the patient's medical records. - Lab Data Lab results reviewed: Yes I reviewed the patient's lab results. Result diagrams: 11/01/17 17:54 11/01/17 17:54 Lab Results 11/01/17 11/01/17 11/01/17 Range/Units 17:54 17:54 17:56 WBC 20.9 H (4.3-11.1) K/mcL RBC 4.70 (4.19-5.50) M/mcL Hgb 14.0 (12.9-16.9) g/dL Hct 45.6 (37.5-50.1) % MCV 97.0 (83.0-100.0) fL MCH 29.8 (28.0-33.3) pg MCHC 30.7 L (31.6-35.5) g/dL RDW 13.2 (11.5-14.5) % Plt Count 237 (140-400) K/mcL MPV 10.9 (9.4-12.4) fL Immature Gran % 0.4 (0-4) % Seg Neutrophils % 89.7 % Lymphocytes % 4.6 % Monocytes % 4.7 % Eosinophils % 0.4 % Basophils % 0.2 % Neutrophils # 18.7 H (1.6-8.9) K/mcL Lymphocytes # 1.0 (0.6-4.6) K/mcL Monocytes # 1.0 (0.0-1.3) K/mcL Eosinophils # 0.1 (0.0-0.6) K/mcL Basophils # 0.1 (0.0-0.2) K/mcL Immature Plt Fraction 4.5 (1.1-6.1) % PT 13.3 H (9.4-12.1) Seconds INR 1.2 APTT 31.3 (26.0-36.0) Seconds D-Dimer 1921 H (0-500) ng/mLFEU Sodium 141 (136-145) mEq/L Potassium 4.1 (3.5-5.1) mEq/L Chloride 101 (98-107) mEq/L Carbon Dioxide 33 H (23-29) mEq/L BUN 9 (6-20) mg/dL Creatinine 0.58 L (0.70-1.30) mg/dL Est GFR ( Amer) > 60 (> 60) Est GFR (Non-Af Amer) > 60 (> 60) BUN/Creatinine Ratio 16 (6-26) Glucose 253 H (70-105) mg/dL Calculated Osmolality 299 (280-300) Lactic Acid (0.5-2.2) mmol/L Calcium 9.4 (8.6-10.3) mg/dL Troponin I 0.04 H* (< 0.04) ng/mL 11/01/17 Range/Units 19:44 WBC (4.3-11.1) K/mcL RBC (4.19-5.50) M/mcL Hgb (12.9-16.9) g/dL Hct (37.5-50.1) % MCV (83.0-100.0) fL MCH (28.0-33.3) pg MCHC (31.6-35.5) g/dL RDW (11.5-14.5) % Plt Count (140-400) K/mcL MPV (9.4-12.4) fL Immature Gran % (0-4) % Seg Neutrophils % % Lymphocytes % % Monocytes % % Eosinophils % % Basophils % % Neutrophils # (1.6-8.9) K/mcL Lymphocytes # (0.6-4.6) K/mcL Monocytes # (0.0-1.3) K/mcL Eosinophils # (0.0-0.6) K/mcL Basophils # (0.0-0.2) K/mcL Immature Plt Fraction (1.1-6.1) % PT (9.4-12.1) Seconds INR APTT (26.0-36.0) Seconds D-Dimer (0-500) ng/mLFEU Sodium (136-145) mEq/L Potassium (3.5-5.1) mEq/L Chloride (98-107) mEq/L Carbon Dioxide (23-29) mEq/L BUN (6-20) mg/dL Creatinine (0.70-1.30) mg/dL Est GFR ( Amer) (> 60) Est GFR (Non-Af Amer) (> 60) BUN/Creatinine Ratio (6-26) Glucose (70-105) mg/dL Calculated Osmolality (280-300) Lactic Acid 0.9 (0.5-2.2) mmol/L Calcium (8.6-10.3) mg/dL Troponin I (< 0.04) ng/mL - Radiology Data Radiology results reviewed: Yes I reviewed the patient's radiology results. - EKG Data EKG attestation: Yes I reviewed and interpreted this EKG. EKG results narrative: A sinus tachycardia with a rate of 129 without evidence of STEMI.
[2017-11-01] MEDS ORDERED: Isovue-370 500 ML INFUS..BTL IV ONE (19:19)
[2017-11-01] MEDS ORDERED: cefTRIAXone 1,000 MG in Water for inj. (sterile) 20 ML 10 ML IVP ONE (19:25)
[2017-11-01] MEDS ORDERED: Azithromycin 500 MG in D5% in Water 250 ML IVPB STA (19:25)
[2017-11-01] MEDS ORDERED: Aspirin 81 MG TAB.CHEW PO ONE (21:55)
--- NOTE | 2017-11-01 23:15 | Internal Med History&Physical ---
<Quang Logan - Last Filed: 11/02/17 03:51> Date of Encounter: 11/02/17 Time of Encounter: 23:00 Internal Medicine - H&P: HPI Chief complaint: SOB and Chest pain Admitted From: Emergency Dept Plans for Post Hospital Care: Home History of present illness: Mr. Andres is a 47 year old male with PMHx COPD on 3L O2 presents to ED with concerns of SOB and chest pain. He was at [facility] when he had sudden onset chest pressure and difficulty breathing. He states this episode is different from previous episodes of COPDE. At ED, his oxygen saturation was 76% . He was placed on 4L nasal cannula and saturation improved to 94%. He reports chest pain and SOB has improved since admission. Current chest pain 08/28. Denies f/c/n/v or recent illness. Has history of poor exercise tolerance. Quit smoking 6 years ago, currently on lung transplant list. Denies dysuria, abdominal pain. No further acute complaints. Past Med Surg Social Fam HX - Past Medical History Medical history: arthritis, asthma, COPD, coronary artery disease, diabetes, GERD, hyperlipidemia, hypertension Psychiatric history: anxiety - Past Surgical History Surgical History: angioplasty/stent, herniorrhaphy, orthopedic, other - Social History Smoking Status: Former smoker Smokeless Tobacco Status: No Alcohol use: rarely Drug use: none, other - Family History Mother Name: Samanta Andres Age: 62 Family Member Ethnicity: Non- Living Status: Age at : 62 Cause of : CANCER Hx Family Cardiac Disorders: No Hx Family Respiratory Disorders: No Hx Family Cancer: Yes (BREAST CANCER) Hx Family GI Disorders: No Hx Family Genitourinary Disorders: No Hx Family Endocrine Disorder: No Hx Family Musculoskeletal Disorders: No Hx Family Neuromuscular Disorders: No Hx Family Neurologic Disorders: No Hx Family HEENT Disorders: No Hx Family Autoimmune Disorders: No Hx Family Reproductive Disorders: No Hx Family Psychosocial Disorders: No Hx Family Medical Disorders: No Father Adopted: [place]: Seferino Andres Age: 55 Family Member Ethnicity: Non- Living Status: Age at : 56 Cause of : PN Hx Family Cardiac Disorders: No Hx Family Respiratory Disorders: No Hx Family Cancer: No Hx Family GI Disorders: No Hx Family Genitourinary Disorders: No Hx Family Endocrine Disorder: Yes (DM) Hx Family Musculoskeletal Disorders: No Hx Family Neuromuscular Disorders: No Hx Family Neurologic Disorders: No Hx Family HEENT Disorders: No Hx Family Autoimmune Disorders: No Hx Family Reproductive Disorders: No Hx Family Psychosocial Disorders: No Hx Family Medical Disorders: No Internal Medicine - H&P: Meds Albuterol Neb [Proventil Neb] 2.5 mg IH Q4HR PRN 06/05/15 [History] ClonazePAM [Klonopin] 0.5 mg PO BID 06/05/15 [History] Docusate [Colace] 100 mg PO DAILY PRN 06/05/15 [History] Glimepiride [Amaryl] 2 mg PO DAILY 06/05/15 [History] Metformin HCl [Glumetza] 500 mg PO BID 06/05/15 [History] OxyCODONE/APAP 10/325 [Percocet 10/325] 1 tab PO Q6H PRN 06/05/15 [History] Roflumilast [Daliresp] 500 mcg PO DAILY 06/05/15 [History] Tobramycin for INHALATION [Bebeto 300 mg/5 ml Solution] 5 ml IH Q12HR 06/05/15 [ History] Zolpidem [Ambien] 5 mg PO HS 06/05/15 [History] Losartan [Cozaar] 25 mg PO DAILY tablet 11/07/15 [Rx] Albuterol Sulfate [Proair Hfa] 2 puff IH Q4H PRN 02/27/16 [History] Oxygen 3 l NS AD 02/27/16 [History] Potassium Chloride [K-Tab ER] 10 meq PO DAILY 02/27/16 [History] Simvastatin [Zocor] 40 mg PO HS 02/27/16 [History] Lactobacillus [Culturelle] 1 each PO BID #8 cap.sprink 07/15/16 [Rx] Budesonide/Formoterol 160/4.5 [Symbicort 160/4.5] 2 puff IH BIDR PRN 08/27/17 [ History] Furosemide [Lasix] 20 mg PO DAILY PRN 08/27/17 [History] Famotidine [Pepcid] 40 mg PO DAILY 11/01/17 [History] Lisinopril 30 mg PO DAILY 11/01/17 [History] Meloxicam [Mobic] 15 mg PO DAILY 11/01/17 [History] Metoprolol Succinate [Toprol Xl] 100 mg PO BID 11/01/17 [History] Minocycline HCl [Minocin] 100 mg PO BID 11/01/17 [History] [place]-3 Acid Ethyl Esters [Lovaza] 1 gm PO QID 11/01/17 [History] 3 Allergy/AdvReac Type Severity Reaction Status Date / Time tiotropium Allergy Hives Verified 09/05/16 23:50 [From Spiriva with HandiHaler] All Systems PM: A 10-system review of systems was performed and is negative for pertinent findings except as documented above in the HPI. - Constitutional Constitutional: no chills, no fever(s), no night sweats - EENT Eyes: no change in vision, no discharge, no pain, no photophobia Ears: no ear discharge, no ear pain, no tinnitus Nose, mouth and throat: no dysphagia, no nasal discharge, no neck pain, no sore throat - Cardiovascular Cardiovascular ROS IM: chest pain, no diaphoresis, no dyspnea, no lightheadedness, no palpitations, no syncope - Respiratory Respiratory: dyspnea, no cough, no wheezing, no excessive phlegm production - Gastrointestinal Gastrointestinal: no abdominal pain, no diarrhea, no hematemesis, no hematochezia, no melena, no nausea, no vomiting - Musculoskeletal Musculoskeletal ROS IM: no numbness, no tingling - Integumentary Integumentary IM: no rash, no unusual bruising - Neurological Neurological ROS: no confusion, no convulsions, no focal weakness, no numbness, no tingling, no tremor(s) - Hematologic/Lymphatic Hematologic/Lymphatic: no easy bruising - Constitutional Vitals: Temp Pulse Resp BP Pulse Ox 99 F 101 22 107/67 2 11/01/17 17:22 11/01/17 22:03 11/01/17 22:03 11/01/17 22:03 11/01/17 22:03 - Head Head exam: Present: atraumatic, normocephalic - Eye Eye exam: Present: normal appearance, conjuntiva pink, sclera anicteric - Neck Neck exam general surgery: Present: supple, trachea midline. Absent: lymphadenopathy - Respiratory Respiratory exam: Present: rales, wheezes. Absent: accessory muscle use, rhonchi - Cardiovascular Cardiovascular exam: Present: +S1, +S2, tachycardia. Absent: diastolic murmur, gallop, rubs, systolic murmur - GI/Abdominal GI/Abdominal exam: Present: normal bowel sounds, soft, no peritoneal signs. Absent: distended, tenderness - Extremities Exam Extremities exam: Present: warm, radial pulses palpable and symmetrical. Absent : calf tenderness, cyanotic, pedal edema - Neurological Exam Neurological exam: Present: CN II-XII intact, oriented X3, no focal deficits. Absent: pronater drift, facial droop, speech deficit - Skin Skin exam: Present: dry, intact Internal Med - H&P Results - Labs CBC & Chem 7: 11/02/17 00:54 11/02/17 00:54 - Assessment and plan (1) Sepsis due to pneumonia Current Visit: Yes Status: Acute Assessment and plan: On admission, pulse 90+, RR 20+. CXR and CTA demonstrates pneumonia of ARIS. Sepsis criteria met Continue patient on Azithromycin and Ceftriaxone. Continue Duoneb, steroids. O2 as needed with SPO2 goal 88-92% Monitor with AM labs Pending Blood culture (2) COPD with acute exacerbation Current Visit: No Status: Acute Assessment and plan: Treat per above (3) Elevated troponin I level Current Visit: Yes Status: Acute Assessment and plan: Elevated troponin in the setting of chest pain. Continue trending troponin Cardiology consult for recommendations. (4) Chest pain Current Visit: Yes Status: Acute Assessment and plan: As above Qualifiers: Qualified Code(s): R07.9 - Chest pain, unspecified (5) ELIOT (obstructive sleep apnea) Current Visit: No Status: Chronic Assessment and plan: History of ELIOT. Oxygen as needed. (6) Community acquired pneumonia Current Visit: No Status: Suspected Assessment and plan: Treat per above Qualifiers: Qualified Code(s): J18.1 - Lobar pneumonia, unspecified organism (7) DM type 2 (diabetes mellitus, type 2) Current Visit: No Status: Chronic Assessment and plan: Low dose SSI Qualifiers: Diabetes mellitus chcf insulin use: without chcf use Diabetes mellitus complication status: without complication Qualified Code(s): E11.9 - Type 2 diabetes mellitus without complications (8) DVT prophylaxis Current Visit: Yes Status: Acute Assessment and plan: SubQ heparin - Time Spent With Patient Total time spent is greater than 50% in coordination of care (as documented) at patient's floor/unit and/or counseling patient: Greater than 35 minutes <Ly Alexis - Last Filed: 11/02/17 06:18> Date of Encounter: 11/02/17 Internal Medicine - H&P: HPI History of present illness: Mr. Andres is a 47 year old male All Systems PM: A 10-system review of systems was performed and is negative for pertinent findings except as documented above in the HPI. - Constitutional Vitals: Temp Pulse Resp BP Pulse Ox 97.8 F 92 18 123/62 96 11/02/17 04:02 11/02/17 04:02 11/02/17 04:02 11/02/17 04:02 11/02/17 04:02 Internal Med - H&P Results - Labs CBC & Chem 7: 11/02/17 00:54 11/02/17 00:54 Labs: Short CBC 11/02/17 Range/Units 00:54 WBC 20.9 H (4.3-11.1) K/mcL Hgb 13.8 (12.9-16.9) g/dL Hct 45.1 (37.5-50.1) % Plt Count 214 (140-400) K/mcL Neutrophils # 19.9 H (1.6-8.9) K/mcL BMP 11/02/17 00:54 Sodium 139 Potassium 4.3 Chloride 101 Carbon Dioxide 32 H BUN 11 Creatinine 0.52 L Glucose 218 H Calcium 9.0 Cardiac Enzymes 11/02/17 Range/Units 00:54 Troponin I 0.06 H* (< 0.04) ng/mL - Attending Attestation I have seen and examined this patient independently. I have discussed with resident physician Dr. Logan regarding the management plan. Agree with the documentation. - Assessment and plan (1) DM type 2 (diabetes mellitus, type 2) Current Visit: No Status: Chronic Qualifiers: Diabetes mellitus intermodal customer service insulin use: without chcf use Diabetes mellitus complication status: without complication Qualified Code(s): E11.9 - Type 2 diabetes mellitus without complications (2) ELIOT (obstructive sleep apnea) Current Visit: No Status: Chronic (3) Community acquired pneumonia Current Visit: No Status: Suspected Qualifiers: Qualified Code(s): J18.1 - Lobar pneumonia, unspecified organism (4) COPD with acute exacerbation Current Visit: No Status: Acute (5) Sepsis due to pneumonia Current Visit: Yes Status: Acute (6) Elevated troponin I level Current Visit: Yes Status: Acute (7) Chest pain Current Visit: Yes Status: Acute Qualifiers: Qualified Code(s): R07.9 - Chest pain, unspecified (8) DVT prophylaxis Current Visit: Yes Status: Acute - Time Spent With Patient Total time spent is greater than 50% in coordination of care (as documented) at patient's floor/unit and/or counseling patient:
[2017-11-01] MEDS ORDERED: Acetaminophen 325 MG TABLET PO PRN (23:33)
[2017-11-01] MEDS ORDERED: Naloxone 0.4 MG/ML INJ IVP PRN (23:33)
[2017-11-02 01:15] LABS: Basophils % 0.2 %; Hematocrit 45.1 % (37.5-50.1); Hemoglobin 13.8 g/dL (12.9-16.9); Immature Granulocytes % 0.6 % (0-4); Lymphocytes # 0.6 K/mcL (0.6-4.6); Mean Corpuscular HGB Conc 30.6 g/dL (31.6-35.5); Mean Corpuscular Hemoglobin 29.6 pg (28.0-33.3); Mean Corpuscular Volume 96.8 fL (83.0-100.0); Mean Platelet Volume 10.8 fL (9.4-12.4); Monocytes # 0.2 K/mcL (0.0-1.3); Neutrophils # 19.9 K/mcL (1.6-8.9); Platelet Count 214 K/mcL (140-400); Red Blood Count 4.66 M/mcL (4.19-5.50); Red Cell Distribution Width 13.2 % (11.5-14.5); Segmented Neutrophils % 95.2 %
[2017-11-02 01:38] LABS: BUN/Creatinine Ratio 21 (6-26); Blood Urea Nitrogen 11 mg/dL (6-20); Carbon Dioxide 32 mEq/L (23-29); Chloride 101 mEq/L (98-107); Chol/HDL Ratio 3.5 (0-4.9); Cholesterol 143 mg/dL (< 200); Glucose 218 mg/dL (70-105); HDL Cholesterol 41 mg/dL (40-59); LDL Cholesterol,Calculated 89 mg/dL (0-99); Osmolality,Calculated 294 (280-300); Potassium 4.3 mEq/L (3.5-5.1); Sodium 139 mEq/L (136-145); Triglycerides 67 mg/dL (< 150); eGFR For African Americans > 60 (> 60); eGFR For Non-African Americans > 60 (> 60)
[2017-11-02] MEDS ORDERED: D5% in Water 1,000 ML IVC PRN (02:49)
[2017-11-02] MEDS ORDERED: *HR* Dextrose 50 % in Water (Syg) 50 ML SYRINGE IVP PRN (02:49)
[2017-11-02] MEDS ORDERED: Dextrose Gel 15 GM/37.5 ML TUBE PO PRN ×2 (02:49)
[2017-11-02] MEDS ORDERED: Ipratropium/Albuterol Neb 3 ML IH PRN (02:52)
[2017-11-02] MEDS: *HR* Heparin 5,000 UNIT/ML VIAL SQ SCH ×2 (05:47→17:11)
[2017-11-02] MEDS: Ipratropium/Albuterol Neb 3 ML IH SCH ×4 (05:55→21:57)
--- NOTE | 2017-11-02 07:11 | Electrocardiograph Report ---
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
[2017-11-02] MEDS: predniSONE 20 MG TABLET PO SCH (08:44)
[2017-11-02] MEDS: Insulin LISPRO 300 UNITS/3 ML VIAL SQ SCH ×4 (08:44→20:40)
[2017-11-02] MEDS: *HR* OxyCODONE/APAP 10/325 TABLET PO PRN ×3 (09:23→23:10)
--- NOTE | 2017-11-02 09:56 | Cardiology Consult Note ---
<Jose Neil - Last Filed: 11/02/17 09:54> Date of Encounter: 11/02/17 Time of Encounter: 09:54 Assessment and Plan (1) Elevated troponin I level Current Visit: Yes Status: Acute Mild troponin elevation at 0.04, 0.06, 0.04. EKG shows sinus tachycardia with no T/ST changes. Likely demand ischemia in the setting of hypoxia, COPD exacerbation, possible pnuemonia. Cardiac risk factors include, tobacco abuse, HTN, HLD, and DM. Atypical chest pain that occurred while eating. Denies symptoms leading up to this event. Recommend echocardiogram and stress test in the morning. (2) Chest pain Current Visit: Yes Status: Acute Atypical chest pain. See plan above. Qualifiers: Chest pain type: unspecified Qualified Code(s): R07.9 - Chest pain, unspecified Discussion w patient/family: The assessment and plan as outlined above was discussed with the patient and/or family members who expressed understanding and agreement. All questions were answered. Thank you for involving us in the care of your patient. Please call with any questions. History of Present Illness Consult date: 11/02/17 Requesting physician: Ly Alexis Consult reason: Chest pain Chief complaint: Chest pain History of present illness: Mr. Andres is a 47 year old male with past medical history of COPD on home O2 , DM type II, HTN, HLD, and previous tobacco abuse. He also reports being told he had CHF in the past but denies previous cardiac work-up. He presents to ED after developing left sided sharp chest pain while eating a hamburger. The pain last 45 min and was associated with difficulty breathing. He presented to the ED and was found to be hypoxic with SPO2 at 79%. His oxygen was increased and his symptoms resolved. Cardiology consulted for troponin elevation up to 0.06. Past Med Surg Social Fam HX - Past Medical History Medical history: arthritis, asthma, COPD, diabetes, GERD, hyperlipidemia, hypertension Psychiatric history: anxiety - Past Surgical History Surgical History: herniorrhaphy, orthopedic, other - Social History Smoking Status: Former smoker Smokeless Tobacco Status: No Alcohol use: rarely Drug use: none, other - Family History Mother Name: Samanta Andres Age: 62 Family Member Ethnicity: Non- Living Status: Age at : 62 Cause of : CANCER Hx Family Cardiac Disorders: No Hx Family Respiratory Disorders: No Hx Family Cancer: Yes (BREAST CANCER) Hx Family GI Disorders: No Hx Family Genitourinary Disorders: No Hx Family Endocrine Disorder: No Hx Family Musculoskeletal Disorders: No Hx Family Neuromuscular Disorders: No Hx Family Neurologic Disorders: No Hx Family HEENT Disorders: No Hx Family Autoimmune Disorders: No Hx Family Reproductive Disorders: No Hx Family Psychosocial Disorders: No Hx Family Medical Disorders: No Father Adopted: [place]: Seferino Andres Age: 55 Family Member Ethnicity: Non- Living Status: Age at : 56 Cause of : PN Hx Family Cardiac Disorders: No Hx Family Respiratory Disorders: No Hx Family Cancer: No Hx Family GI Disorders: No Hx Family Genitourinary Disorders: No Hx Family Endocrine Disorder: Yes (DM) Hx Family Musculoskeletal Disorders: No Hx Family Neuromuscular Disorders: No Hx Family Neurologic Disorders: No Hx Family HEENT Disorders: No Hx Family Autoimmune Disorders: No Hx Family Reproductive Disorders: No Hx Family Psychosocial Disorders: No Hx Family Medical Disorders: No Medications and Allergies Albuterol Neb [Proventil Neb] 2.5 mg IH Q4HR PRN 06/05/15 [History] ClonazePAM [Klonopin] 0.5 mg PO BID 06/05/15 [History] Docusate [Colace] 100 mg PO DAILY PRN 06/05/15 [History] Glimepiride [Amaryl] 2 mg PO DAILY 06/05/15 [History] Metformin HCl [Glumetza] 500 mg PO BID 06/05/15 [History] OxyCODONE/APAP 10/325 [Percocet 10/325] 1 tab PO Q6H PRN 06/05/15 [History] Roflumilast [Daliresp] 500 mcg PO DAILY 06/05/15 [History] Tobramycin for INHALATION [Bebeto 300 mg/5 ml Solution] 5 ml IH Q12HR 06/05/15 [ History] Zolpidem [Ambien] 5 mg PO HS 06/05/15 [History] Losartan [Cozaar] 25 mg PO DAILY tablet 11/07/15 [Rx] Albuterol Sulfate [Proair Hfa] 2 puff IH Q4H PRN 02/27/16 [History] Oxygen 3 l NS AD 02/27/16 [History] Potassium Chloride [K-Tab ER] 10 meq PO DAILY 02/27/16 [History] Simvastatin [Zocor] 40 mg PO HS 02/27/16 [History] Lactobacillus [Culturelle] 1 each PO BID #8 cap.sprink 07/15/16 [Rx] Budesonide/Formoterol 160/4.5 [Symbicort 160/4.5] 2 puff IH BIDR PRN 08/27/17 [ History] Furosemide [Lasix] 20 mg PO DAILY PRN 08/27/17 [History] Famotidine [Pepcid] 40 mg PO DAILY 11/01/17 [History] Lisinopril 30 mg PO DAILY 11/01/17 [History] Meloxicam [Mobic] 15 mg PO DAILY 11/01/17 [History] Metoprolol Succinate [Toprol Xl] 100 mg PO BID 11/01/17 [History] Minocycline HCl [Minocin] 100 mg PO BID 11/01/17 [History] Chapman-3 Acid Ethyl Esters [Lovaza] 1 gm PO QID 11/01/17 [History] 3 Allergy/AdvReac Type Severity Reaction Status Date / Time tiotropium Allergy Hives Verified 09/05/16 23:50 [From Spiriva with HandiHaler] All Systems Review: The remainder of the systems were reviewed and are negative Physical Examination Vital Signs, Last 4 Hours Temp Pulse Resp BP Pulse Ox 11/02/17 07:47 98.0 F 85 20 128/85 98 General: Conversant, No Apparent Distress HEENT: Atraumatic, Normocephaly, Mucus Membranes Moist Neck: No JVD, Normal carotid pulses Cardiac: Normal S1 and S2, No Murmur, Other (sinus tachycardia ) Lungs: Other (Course wheezes throughout) Neuro: Alert and responsive, No focal deficits noted Abdomen: Soft, Non-Tender Skin: No rashes noted on visualized skin Musculoskeletal: No Chest Wall Tenderness Extremities: No Clubbing, No Cyanosis, No Edema, Normal Pulses Results 11/02/17 00:54 11/02/17 00:54 Lab Results 11/02/17 11/02/17 11/02/17 00:54 00:54 00:54 WBC 20.9 H Hgb 13.8 Hct 45.1 Plt Count 214 Sodium 139 Potassium 4.3 Chloride 101 Carbon Dioxide 32 H BUN 11 Creatinine 0.52 L Glucose 218 H Calcium 9.0 Troponin I 0.06 H* 11/02/17 06:52 WBC Hgb Hct Plt Count Sodium Potassium Chloride Carbon Dioxide BUN Creatinine Glucose Calcium Troponin I 0.04 H* - Imaging and Cardiology Echo: pending - EKG Interpretation EKG results cardiology: personally reviewed (SInus tachycardia) Consult Discharge Plan - Plan Referrals: NONE,PCP [Primary Care Provider] - <KwamemagnoJuan Miguelmelodie - Last Filed: 11/02/17 13:26> Date of Encounter: 11/02/17 - Attending Attestation I have personally performed a face to face evaluation on this patient. I have reviewed and agree with the care plan. History and Exam by me shows: 47 YOM with multiple CRF's and possible hx of PCI (per patient but no records available of STENTs/LHC) presents with SOB, cough, fever and chest pain. Chest pain is atypical worse with deep breathing and cough. Mild elevated trops peak .06 likely demand ischemia. Likely will need chemical stress test when resp insufficiency has recovered as an inpatient prior to discharge. Assessment and Plan Discussion w patient/family: The assessment and plan as outlined above was discussed with the patient and/or family members who expressed understanding and agreement. All questions were answered. Thank you for involving us in the care of your patient. Please call with any questions. History of Present Illness History of present illness: Mr. Andres is a 47 year old male All Systems Review: The remainder of the systems were reviewed and are negative Physical Examination Vital Signs, Last 4 Hours Temp Pulse Resp BP Pulse Ox 11/02/17 11:47 98.2 F 86 18 104/67 93 11/02/17 10:27 16 98 Results 11/02/17 00:54 11/02/17 00:54 Lab Results 11/02/17 11/02/17 11/02/17 00:54 00:54 00:54 WBC 20.9 H Hgb 13.8 Hct 45.1 Plt Count 214 Sodium 139 Potassium 4.3 Chloride 101 Carbon Dioxide 32 H BUN 11 Creatinine 0.52 L Glucose 218 H Calcium 9.0 Troponin I 0.06 H* 11/02/17 06:52 WBC Hgb Hct Plt Count Sodium Potassium Chloride Carbon Dioxide BUN Creatinine Glucose Calcium Troponin I 0.04 H*
[2017-11-02] MEDS: cefTRIAXone 2,000 MG in Water for inj. (sterile) 20 ML 20 ML IVP SCH (11:19)
[2017-11-02] MEDS ORDERED: Budesonide/Formoterol 160/4.5 MDI IH PRN (16:06)
[2017-11-02] MEDS ORDERED: Furosemide 40 MG TABLET PO PRN (16:06)
[2017-11-02] MEDS: Azithromycin 500 MG in D5% in Water 250 ML IVPB SCH (17:11)
[2017-11-02] MEDS ORDERED: Tobramycin for INHALATION 300 MG/5 ML AMPUL IH SCH (18:00)
[2017-11-02] MEDS: (Omega-3 Acid Ethyl Esters [Lovaza] 1 GM) PO SCH ×2 (18:10→20:40)
[2017-11-02] MEDS: Lactobacillus 1 EACH CAP.SPRINK PO SCH (20:39)
[2017-11-02] MEDS: clonazePAM 0.5 MG TABLET PO SCH (20:40)
[2017-11-02] MEDS: Metoprolol XL (24 HR) Succ 50 MG TAB.ER.24H PO SCH (20:41)
[2017-11-02] MEDS: Budesonide/Formoterol 160/4.5 MDI IH SCH (21:57)
--- NOTE | 2017-11-02 22:04 | Internal Med Progress Note ---
Date of Encounter: 11/02/17 Time of Encounter: 13:30 - Assessment and plan (1) Community acquired pneumonia Current Visit: Yes Status: Suspected Assessment and plan: CT angiogram of chest shows areas of inflammation/infection in left upper and lower lobes. Follow-up blood cultures, continue IV antibiotics-Rocephin and azithromycin. Continues to have leukocytosis. Supportive care and supplemental oxygen. Qualifiers: Laterality: left Lung location: unspecified part of lung Qualified Code(s ): J18.9 - Pneumonia, unspecified organism (2) Sepsis due to pneumonia Current Visit: Yes Status: Acute Assessment and plan: Presented with leukocytosis and tachycardia with pneumonia. Continue IV antibiotics, IV hydration, follow up cultures, monitor vital signs closely. Lactic acid normal. (3) DM type 2 (diabetes mellitus, type 2) Current Visit: Yes Status: Chronic Assessment and plan: Blood sugars acceptable. Continue Accu-Chek blood glucose monitoring with sliding scale insulin as needed. Diabetic diet. Qualifiers: Diabetes mellitus retirement insulin use: without retirement use Diabetes mellitus complication status: without complication Qualified Code(s): E11.9 - Type 2 diabetes mellitus without complications (4) ELIOT (obstructive sleep apnea) Current Visit: Yes Status: Chronic (5) COPD with acute exacerbation Current Visit: Yes Status: Acute Assessment and plan: Likely due to acute bronchitis and pneumonia. Continue oral steroids, breathing treatments, supplemental oxygen, empiric IV antibiotics, ICS/LABA; (6) Elevated troponin I level Current Visit: Yes Status: Acute Assessment and plan: Serial Troponins around 0.06; mild leak likely due to infection, hypoxemia and demand ischemia; cardiology consult appreciated, recommend nuclear stress test. Follow-up echocardiogram. Continue telemetry monitoring. (7) Chest pain Current Visit: Yes Status: Acute Assessment and plan: Plan as above. Chest pain currently improving. Qualifiers: Chest pain type: unspecified Qualified Code(s): R07.9 - Chest pain, unspecified (8) DVT prophylaxis Current Visit: Yes Status: Acute (9) Chronic respiratory failure Current Visit: Yes Status: Chronic Assessment and plan: Due to underlying COPD and obstructive sleep apnea. Qualifiers: Respiratory failure complication: hypoxia Qualified Code(s): J96.11 - Chronic respiratory failure with hypoxia (10) Coronary artery disease Current Visit: Yes Status: Chronic Qualifiers: Coronary Disease-Associated Artery/Lesion type: [place] artery [place] vs. transplanted heart: torres martinez heart Associated angina: without angina Qualified Code(s): I25.10 - Atherosclerotic heart disease of [place] coronary artery without angina pectoris - Time Spent With Patient Total time spent is greater than 50% in coordination of care (as documented) at patient's floor/unit and/or counseling patient: - Subjective Interval history: Feels better; improving cough, chest pain and shortness of breath; no fever, chills, orthopnea, palpitations; he does have home O2 and CPAP; - Constitutional Vitals: Temp Pulse Resp BP Pulse Ox 98.0 F 88 20 130/86 100 11/02/17 19:29 11/02/17 19:29 11/02/17 19:29 11/02/17 19:29 11/02/17 19:29 General appearance: Present: A&O X 3, obese, answers questions appropriately - Respiratory Respiratory exam: Present: CTAB (coarse breath sounds B/L ). Absent: accessory muscle use, rales, rhonchi, wheezes - Cardiovascular Cardiovascular exam: Present: RRR, +S1, +S2. Absent: diastolic murmur, gallop, rubs, systolic murmur - GI/Abdominal GI/Abdominal exam: Present: normal bowel sounds, soft (obese), no peritoneal signs. Absent: distended, tenderness - Extremities Exam Extremities exam: Present: full ROM, pedal edema, warm, radial pulses palpable and symmetrical. Absent: calf tenderness, cyanotic - Neurological Exam Neurological exam: Present: CN II-XII intact, oriented X3, no focal deficits. Absent: pronater drift, facial droop, speech deficit Internal Medicine: Result - Labs CBC & Chem 7: 11/03/17 01:40 11/03/17 01:40 Labs: Short CBC 11/02/17 Range/Units 00:54 WBC 20.9 H (4.3-11.1) K/mcL Hgb 13.8 (12.9-16.9) g/dL Hct 45.1 (37.5-50.1) % Plt Count 214 (140-400) K/mcL Neutrophils # 19.9 H (1.6-8.9) K/mcL BMP 11/02/17 00:54 Sodium 139 Potassium 4.3 Chloride 101 Carbon Dioxide 32 H BUN 11 Creatinine 0.52 L Glucose 218 H Calcium 9.0 Cardiac Enzymes 05/15/18 05/15/18 Range/Units 00:54 06:52 Troponin I 0.06 H* 0.04 H* (< 0.04) ng/mL - ABG Interpretation ABG results: PT/INR, D-dimer PT 13.3 Seconds (9.4-12.1) H 11/01/17 17:56 D-Dimer 1921 ng/mLFEU (0-500) H 11/01/17 17:56 Consult Discharge Plan - Plan Referrals: NONE,PCP [Primary Care Provider] -
[2017-11-03 02:12] LABS: Basophils % 0.1 %; Eosinophils % 0.2 %; Hematocrit 42.8 % (37.5-50.1); Immature Granulocytes % 0.6 % (0-4); Lymphocytes # 1.6 K/mcL (0.6-4.6); Lymphocytes % 9.2 %; Mean Corpuscular HGB Conc 30.4 g/dL (31.6-35.5); Mean Corpuscular Hemoglobin 29.7 pg (28.0-33.3); Mean Corpuscular Volume 97.7 fL (83.0-100.0); Mean Platelet Volume 11.6 fL (9.4-12.4); Monocytes # 1.1 K/mcL (0.0-1.3); Neutrophils # 14.9 K/mcL (1.6-8.9); Nucleated Red Blood Cells 0.1 /100 WBC (0); Platelet Count 225 K/mcL (140-400); Red Blood Count 4.38 M/mcL (4.19-5.50); Red Cell Distribution Width 13.1 % (11.5-14.5); Segmented Neutrophils % 83.9 %
[2017-11-03 02:32] LABS: BUN/Creatinine Ratio 40 (6-26); Blood Urea Nitrogen 21 mg/dL (6-20); Calcium 8.9 mg/dL (8.6-10.3); Carbon Dioxide 37 mEq/L (23-29); Chloride 103 mEq/L (98-107); Glucose 211 mg/dL (70-105); Osmolality,Calculated 303 (280-300); Potassium 4.4 mEq/L (3.5-5.1); Sodium 142 mEq/L (136-145); eGFR For African Americans > 60 (> 60); eGFR For Non-African Americans > 60 (> 60)
[2017-11-03] MEDS: Ipratropium/Albuterol Neb 3 ML IH SCH ×4 (03:48→22:58)
[2017-11-03] MEDS: *HR* Heparin 5,000 UNIT/ML VIAL SQ SCH ×2 (05:04→17:19)
[2017-11-03] MEDS: *HR* OxyCODONE/APAP 10/325 TABLET PO PRN ×4 (05:08→23:56)
[2017-11-03] MEDS ORDERED: Regadenoson 0.4 MG/5 ML SYRINGE IVP ONE (05:31)
[2017-11-03] MEDS: Insulin LISPRO 300 UNITS/3 ML VIAL SQ SCH ×4 (07:26→21:04)
--- NOTE | 2017-11-03 10:16 | Cardiology Progress Note ---
Date of Encounter: 11/03/17 Time of Encounter: 10:13 Assessment and Plan (1) Elevated troponin I level Current Visit: Yes Status: Acute Mild troponin elevation at 0.04, 0.06, 0.04. EKG shows sinus tachycardia with no T/ST changes. Likely demand ischemia in the setting of hypoxia, COPD exacerbation, possible pnuemonia. Spo2 76%. Cardiac risk factors include, tobacco abuse, HTN, HLD, and DM. Atypical chest pain that occurred while eating. Denies symptoms leading up to this event. Stress test and echocardiogram pending. Denies recurrent chest pain. (2) Chest pain Current Visit: Yes Status: Acute Atypical chest pain. See plan above. Qualifiers: Chest pain type: unspecified Qualified Code(s): R07.9 - Chest pain, unspecified Discussion w patient/family: The assessment and plan as outlined above was discussed with the patient and/or family members who expressed understanding and agreement. All questions were answered. Thank you for involving us in the care of your patient. Please call with any questions. Subjective Principal diagnosis: Chest pain, COPD Interval history: Mr. Andres denies recurrent chest pain. Reports he is breathing better. Patient seen in stress lab. Objective Vital Signs, Last 4 Hours Temp Pulse Resp BP Pulse Ox 11/03/17 07:00 97.8 F 88 16 104/68 99 General: Conversant, No Apparent Distress HEENT: Atraumatic, Normocephaly, Mucus Membranes Moist Neck: No JVD, Normal carotid pulses Cardiac: Reg Rate and Rhythm, Normal S1 and S2, No Murmur Lungs: Other (Respirations easy, course rhonci scattered throughout. Air movement improved. ) Neuro: Alert and responsive, No focal deficits noted Abdomen: Soft, Non-Tender Skin: No rashes noted on visualized skin Musculoskeletal: No Chest Wall Tenderness Extremities: No Clubbing, No Cyanosis, No Edema, Normal Pulses Results 11/03/17 01:40 11/03/17 01:40 Lab Results 11/03/17 11/03/17 01:40 01:40 WBC 17.8 H Hgb 13.0 Hct 42.8 Plt Count 225 Sodium 142 Potassium 4.4 Chloride 103 Carbon Dioxide 37 H BUN 21 H Creatinine 0.52 L Glucose 211 H Calcium 8.9 Chest X-Ray 11/01/17 17:56 IMPRESSION: Patchy (chronic) bilateral airspace disease superimposed on the known background emphysema and multi lobar bronchiectasis. D/ / Clif Dickey / Clif Dickey Interpreting Provider: Clif Dickey Chest CTA 11/01/17 19:19 IMPRESSION: Limited evaluation of the segmental and subsegmental pulmonary arterial branches. No central pulmonary embolism is detected. New areas of inflammation/ infection within the left upper lobe and left lower lobe, most compatible with bronchiolitis and pneumonia. This is seen on a background of severe cystic bronchiectasis, greatest within the right midlung. Re- demonstration of mediastinal lymphadenopathy which appears increased when compared to the previous examination and is probably reactive. D/ / Eugene Boyle MD / Eugene Boyle MD Interpreting Provider: Eugene Boyle MD - Imaging and Cardiology Stress Test: pending Echo: pending - EKG Interpretation EKG results cardiology: personally reviewed Consult Discharge Plan - Plan Referrals: NONE,PCP [Primary Care Provider] -
[2017-11-03] MEDS: cefTRIAXone 2,000 MG in Water for inj. (sterile) 20 ML 20 ML IVP SCH (10:45)
[2017-11-03] MEDS: predniSONE 20 MG TABLET PO SCH (10:46)
[2017-11-03] MEDS: Lactobacillus 1 EACH CAP.SPRINK PO SCH ×2 (10:46→20:51)
[2017-11-03] MEDS: Metoprolol XL (24 HR) Succ 50 MG TAB.ER.24H PO SCH ×2 (10:46→20:52)
[2017-11-03] MEDS: (Roflumilast [Daliresp] 500 MCG) PO SCH (10:47)
[2017-11-03] MEDS: clonazePAM 0.5 MG TABLET PO SCH ×2 (10:47→20:52)
[2017-11-03] MEDS: (Omega-3 Acid Ethyl Esters [Lovaza] 1 GM) PO SCH ×4 (10:47→20:52)
[2017-11-03] MEDS: Budesonide/Formoterol 160/4.5 MDI IH SCH ×2 (11:27→22:59)
[2017-11-03] MEDS: Tobramycin for INHALATION 300 MG/5 ML AMPUL IH SCH ×2 (11:28→22:59)
[2017-11-03] MEDS: Azithromycin 500 MG in D5% in Water 250 ML IVPB SCH (17:19)
--- NOTE | 2017-11-03 21:55 | Internal Med Progress Note ---
Date of Encounter: 11/03/17 Time of Encounter: 13:45 - Assessment and plan (1) Community acquired pneumonia Current Visit: Yes Status: Acute Assessment and plan: CT angiogram of chest shows areas of inflammation/infection in left upper and lower lobes. Blood cultures negative, continue IV antibiotics-Rocephin and azithromycin. Improving leukocytosis. Supportive care and supplemental oxygen. Qualifiers: Laterality: left Lung location: unspecified part of lung Qualified Code(s ): J18.9 - Pneumonia, unspecified organism (2) Sepsis due to pneumonia Current Visit: Yes Status: Resolved Assessment and plan: Presented with leukocytosis and tachycardia with pneumonia. Continue IV antibiotics, follow up cultures, monitor vital signs closely. Lactic acid normal. (3) DM type 2 (diabetes mellitus, type 2) Current Visit: Yes Status: Chronic Assessment and plan: Blood sugars acceptable, with a few high readings. Continue Accu-Chek blood glucose monitoring with sliding scale insulin as needed. Diabetic diet. Qualifiers: Diabetes mellitus certified family mediator insulin use: without senior living use Diabetes mellitus complication status: without complication Qualified Code(s): E11.9 - Type 2 diabetes mellitus without complications (4) ELIOT (obstructive sleep apnea) Current Visit: Yes Status: Chronic (5) COPD with acute exacerbation Current Visit: Yes Status: Acute Assessment and plan: Likely due to acute bronchitis and pneumonia. Continue oral steroids, breathing treatments, supplemental oxygen, empiric IV antibiotics, ICS/LABA; (6) Elevated troponin I level Current Visit: Yes Status: Acute Assessment and plan: Serial Troponins around 0.06; mild leak likely due to infection, hypoxemia and demand ischemia; cardiology consult appreciated, nuclear stress test negative for ischemia/infarct. Echocardiogram showed preserved EF, mild LV diastolic dysfunction. Continue telemetry monitoring. (7) Chest pain Current Visit: Yes Status: Acute Assessment and plan: Plan as above. Chest pain currently improving. Qualifiers: Chest pain type: unspecified Qualified Code(s): R07.9 - Chest pain, unspecified (8) DVT prophylaxis Current Visit: Yes Status: Acute (9) Chronic respiratory failure Current Visit: Yes Status: Chronic Qualifiers: Respiratory failure complication: hypoxia Qualified Code(s): J96.11 - Chronic respiratory failure with hypoxia (10) Coronary artery disease Current Visit: Yes Status: Chronic Qualifiers: Coronary Disease-Associated Artery/Lesion type: [place] artery [place] vs. transplanted heart: enterprise heart Associated angina: without angina Qualified Code(s): I25.10 - Atherosclerotic heart disease of enterprise coronary artery without angina pectoris - Time Spent With Patient Total time spent is greater than 50% in coordination of care (as documented) at patient's floor/unit and/or counseling patient: - Subjective Interval history: Feels better; improving cough, chest pain and shortness of breath; no fever, chills, orthopnea, palpitations; underwent stress test today; - Constitutional Vitals: Temp Pulse Resp BP Pulse Ox 98.3 F 92 18 135/82 94 11/03/17 19:23 11/03/17 19:23 11/03/17 19:23 11/03/17 19:23 11/03/17 19:23 General appearance: Present: A&O X 3, obese, answers questions appropriately - Respiratory Respiratory exam: Present: CTAB (coarse breath sounds B/L). Absent: accessory muscle use, rales, rhonchi, wheezes - Cardiovascular Cardiovascular exam: Present: RRR, +S1, +S2. Absent: diastolic murmur, gallop, rubs, systolic murmur - GI/Abdominal GI/Abdominal exam: Present: normal bowel sounds, soft (obese), no peritoneal signs. Absent: distended, tenderness - Extremities Exam Extremities exam: Present: full ROM, warm, radial pulses palpable and symmetrical. Absent: calf tenderness, cyanotic, pedal edema - Neurological Exam Neurological exam: Present: CN II-XII intact, oriented X3, no focal deficits. Absent: pronater drift, facial droop, speech deficit Internal Medicine: Result - Labs CBC & Chem 7: 11/04/17 01:28 11/03/17 01:40 Labs: Short CBC 11/03/17 Range/Units 01:40 WBC 17.8 H (4.3-11.1) K/mcL Hgb 13.0 (12.9-16.9) g/dL Hct 42.8 (37.5-50.1) % Plt Count 225 (140-400) K/mcL Neutrophils # 14.9 H (1.6-8.9) K/mcL BMP 11/03/17 01:40 Sodium 142 Potassium 4.4 Chloride 103 Carbon Dioxide 37 H BUN 21 H Creatinine 0.52 L Glucose 211 H Calcium 8.9 - ABG Interpretation ABG results: PT/INR, D-dimer PT 13.3 Seconds (9.4-12.1) H 11/01/17 17:56 D-Dimer 1921 ng/mLFEU (0-500) H 11/01/17 17:56 - Impressions Impressions Echocardiogram 11/02/17 02:48 Impressions: LVEF 60-65%. Mild left ventricular diastolic dysfunction. Normal right ventricular structure and function. No significant valvular dysfunction. No pulmonary hypertension. Left Ventricular Wall Motion: Rest Echo Findings All wall segments showed normal motion. Findings: Study Quality * Technically adequate exam. ECG Findings * Normal sinus rhythm. Left Ventricle * LVEF 60-65%. * Normal LV chamber size, wall thickness and function. * Mild left ventricular diastolic dysfunction. Right Ventricle * Normal right ventricular structure and function. Left Atrium * Mildly dilated left atrium. Right Atrium * Normal right atrial size. Aortic Valve * No aortic regurgitation. * Aortic valve not well visualized. * No aortic stenosis. Mitral Valve * Normal mitral valve structure. * No mitral stenosis. * Trace mitral regurgitation. Tricuspid Valve * Tricuspid valve not well visualized. * No tricuspid regurgitation. * Estimated RA pressure is 8 mmHg. * Estimated RVSP is 19 mmHg. * No pulmonary hypertension. Pulmonic Valve * Pulmonic valve is not well visualized. * No pulmonic stenosis. * No pulmonic regurgitation. Pulmonary Artery * Pulmonary artery not well visualized. Aorta * Normally sized aortic root. Pericardium * There is no pericardial effusion present. Interatrial Septum * No evidence of PFO by color Doppler. IVC * The IVC is not dilated. * < 50% respiratory change. Consult Discharge Plan - Plan Instructions: Chronic Hypertension (DC), Pneumonia (DC) Additional Instructions: F/up with PCP in 1-2 weeks; Finish all antibiotics even if you feel 100% better. Go to nearest emergency room for any new or worsening symptoms. Referrals: NONE,PCP [Primary Care Provider] - Prescriptions: Levofloxacin [Levaquin] 750 mg PO DAILY #3 tablet predniSONE [PredniSONE] 40 mg PO DAILY #8 tablet
[2017-11-04 01:50] LABS: Basophils % 0.2 %; Eosinophils # 0.1 K/mcL (0.0-0.6); Eosinophils % 0.4 %; Hematocrit 40.1 % (37.5-50.1); Hemoglobin 12.2 g/dL (12.9-16.9); Immature Granulocytes % 0.5 % (0-4); Lymphocytes # 2.1 K/mcL (0.6-4.6); Lymphocytes % 16.3 %; Mean Corpuscular HGB Conc 30.4 g/dL (31.6-35.5); Mean Corpuscular Hemoglobin 29.5 pg (28.0-33.3); Mean Corpuscular Volume 96.9 fL (83.0-100.0); Monocytes % 7.5 %; Neutrophils # 9.5 K/mcL (1.6-8.9); Platelet Count 225 K/mcL (140-400); Red Blood Count 4.14 M/mcL (4.19-5.50); Red Cell Distribution Width 13.1 % (11.5-14.5); Segmented Neutrophils % 75.1 %
[2017-11-04] MEDS: Ipratropium/Albuterol Neb 3 ML IH SCH ×3 (03:52→15:32)
[2017-11-04] MEDS: *HR* OxyCODONE/APAP 10/325 TABLET PO PRN ×2 (06:31→12:37)
[2017-11-04] MEDS: *HR* Heparin 5,000 UNIT/ML VIAL SQ SCH (06:31)
[2017-11-04] MEDS: Insulin LISPRO 300 UNITS/3 ML VIAL SQ SCH ×2 (08:20→12:36)
[2017-11-04] MEDS: (Omega-3 Acid Ethyl Esters [Lovaza] 1 GM) PO SCH ×2 (08:21→13:08)
[2017-11-04] MEDS: (Roflumilast [Daliresp] 500 MCG) PO SCH (08:21)
[2017-11-04] MEDS: clonazePAM 0.5 MG TABLET PO SCH (08:26)
[2017-11-04] MEDS: Metoprolol XL (24 HR) Succ 50 MG TAB.ER.24H PO SCH (08:26)
[2017-11-04] MEDS: Lactobacillus 1 EACH CAP.SPRINK PO SCH (08:26)
[2017-11-04] MEDS: predniSONE 20 MG TABLET PO SCH (08:26)
[2017-11-04] MEDS: Budesonide/Formoterol 160/4.5 MDI IH SCH (10:55)
[2017-11-04] MEDS: Tobramycin for INHALATION 300 MG/5 ML AMPUL IH SCH (10:55)
[2017-11-04 11:28] VITALS: BP 123/78
[2017-11-04] MEDS: cefTRIAXone 2,000 MG in Water for inj. (sterile) 20 ML 20 ML IVP SCH (13:07)
--- NOTE | 2017-11-04 13:45 | Discharge Summary ---
- NOTES TO OUTPATIENT PROVIDER Notes to Outpatient Provider: Treated for Pneumonia Orders not resulted at time of discharge: Pending orders 11/03/17 08:15 NM jose perf SPECT multi [NM] Routine Date of Encounter: 11/04/17 Time of Encounter: 13:43 - Discharge Diagnosis (1) Community acquired pneumonia Priority: Primary Status: Acute Qualifiers: Laterality: left Lung location: unspecified part of lung Qualified Code(s ): J18.9 - Pneumonia, unspecified organism (2) Sepsis due to pneumonia Priority: Primary Status: Resolved (3) DM type 2 (diabetes mellitus, type 2) Priority: Secondary Status: Chronic Qualifiers: Diabetes mellitus shelter insulin use: without shelter use Diabetes mellitus complication status: without complication Qualified Code(s): E11.9 - Type 2 diabetes mellitus without complications (4) ELIOT (obstructive sleep apnea) Priority: Secondary Status: Chronic (5) COPD with acute exacerbation Priority: Primary Status: Acute (6) Elevated troponin I level Priority: Primary Status: Acute (7) Chest pain Priority: Primary Status: Acute Qualifiers: Chest pain type: unspecified Qualified Code(s): R07.9 - Chest pain, unspecified (8) Chronic respiratory failure Priority: Secondary Status: Chronic Qualifiers: Respiratory failure complication: hypoxia Qualified Code(s): J96.11 - Chronic respiratory failure with hypoxia (9) Coronary artery disease Priority: Secondary Status: Chronic Qualifiers: Coronary Disease-Associated Artery/Lesion type: [place] artery [place] vs. transplanted heart: [place] heart Associated angina: without angina Qualified Code(s): I25.10 - Atherosclerotic heart disease of [place] coronary artery without angina pectoris Hospital course: Mr. Andres is a 47 year old male with the above medical problems, who was admitted with worsening SOB and chest pain. He was treated with breathing treatments, supplemental O2, oral steroids and IV antibiotics for acute COPD exacerbation. CT angiogram of chest shows areas of inflammation/infection in left upper and lower lobes. He was also noted to be septic with Pneumonia and received IV Rocephin and Zithromax; blood cultures remained negative. Serial Troponins around 0.06; mild leak likely due to infection, hypoxemia and demand ischemia; cardiology consult appreciated, nuclear stress test negative for ischemia/infarct. Echocardiogram showed preserved EF, mild LV diastolic dysfunction. Patient is medically stable for discharge, on oral antibiotics; he is at his baseline O2 requirements. Discharge discussed with: patient, nurse - Time Spent with Patient Total time spent providing and/or coordinating discharge services: Greater than 30 minutes (45 min) - Discharge Medications Prescriptions: Levofloxacin [Levaquin] 750 mg PO DAILY #3 tablet predniSONE [PredniSONE] 40 mg PO DAILY #8 tablet Home Medications: Albuterol Neb [Proventil Neb] 2.5 mg IH Q4HR PRN 06/05/15 [History] ClonazePAM [Klonopin] 0.5 mg PO BID 06/05/15 [History] Docusate [Colace] 100 mg PO DAILY PRN 06/05/15 [History] Glimepiride [Amaryl] 2 mg PO DAILY 06/05/15 [History] Metformin HCl [Glumetza] 500 mg PO BID 06/05/15 [History] OxyCODONE/APAP 10/325 [Percocet 10/325] 1 tab PO Q6H PRN 06/05/15 [History] Roflumilast [Daliresp] 500 mcg PO DAILY 06/05/15 [History] Tobramycin for INHALATION [Bebeto 300 mg/5 ml Solution] 5 ml IH Q12HR 06/05/15 [ History] Zolpidem [Ambien] 5 mg PO HS 06/05/15 [History] Albuterol Sulfate [Proair Hfa] 2 puff IH Q4H PRN 02/27/16 [History] Oxygen 3 l NS AD 02/27/16 [History] Potassium Chloride [K-Tab ER] 10 meq PO DAILY 02/27/16 [History] Simvastatin [Zocor] 40 mg PO HS 02/27/16 [History] Lactobacillus [Culturelle] 1 each PO BID #8 cap.sprink 07/15/16 [Rx] Furosemide [Lasix] 20 mg PO DAILY PRN 08/27/17 [History] Famotidine [Pepcid] 40 mg PO DAILY 11/01/17 [History] Lisinopril 30 mg PO DAILY 11/01/17 [History] Meloxicam [Mobic] 15 mg PO DAILY 11/01/17 [History] Metoprolol Succinate [Toprol Xl] 100 mg PO BID 11/01/17 [History] Minocycline HCl [Minocin] 100 mg PO BID 11/01/17 [History] [place]-3 Acid Ethyl Esters [Lovaza] 1 gm PO QID 11/01/17 [History] Budesonide/Formoterol 160/4.5 [Symbicort 160/4.5] 2 puff IH BIDR #0 11/04/17 [Rx ] Levofloxacin [Levaquin] 750 mg PO DAILY #3 tablet 11/04/17 [Rx] predniSONE [PredniSONE] 40 mg PO DAILY #8 tablet 11/04/17 [Rx] Allergies/Adverse Reactions: 3 Allergy/AdvReac Type Severity Reaction Status Date / Time tiotropium Allergy Hives Verified 09/05/16 23:50 [From Spiriva with HandiHaler] Date of admission: 11/01/17 23:33 Primary care physician: PCP NONE Consults: 11/02/17 02:48 Consult to Cardiology [CONS] Routine Comment: Consulting Provider: Cardiology Marilia Reason for Consult: elevated troponin with CP Call Completed: No Discharging clinician: Essence Rosales Anticipated date of discharge: 11/04/17 - Constitutional Vitals: Temp Pulse Resp BP Pulse Ox 98.1 F 76 18 123/78 98 11/04/17 09:55 11/04/17 09:55 11/04/17 09:55 11/04/17 09:55 11/04/17 09:55 General appearance: Present: A&O X 3, obese, answers questions appropriately - Respiratory Respiratory exam: Present: CTAB, wheezes (intermittent end-expiratory wheezing) . Absent: accessory muscle use, rales, rhonchi - Cardiovascular Cardiovascular exam: Present: RRR, +S1, +S2. Absent: diastolic murmur, gallop, rubs, systolic murmur - Patient Status Disposition: Home, Self-Care Condition: Fair Functional capacity at discharge: independent ambulation Overall status at discharge: patient is progressing back to baseline - Discharge Instructions Instructions: Chronic Hypertension (DC), Pneumonia (DC) Follow Up With: NONE,PCP [Primary Care Provider] - Additional Instructions: F/up with PCP in 1-2 weeks; Finish all antibiotics even if you feel 100% better. Go to nearest emergency room for any new or worsening symptoms. - Diet and Activity Activity: resume usual activities as tolerated, wear oxygen at all times Diet: diabetic diet, low fat, low cholesterol, low salt diet
== END 2017-11-04 15:30 | disposition home or self-care (01) | DRG 871 ==
LOC: EMEROO 16:56 → 3NENU 16:56 → SUATTDRO 23:33
PROVIDERS: ADMIT Internal Medicine; ATTEND Internal Medicine

== ENCOUNTER 2018-09-15 01:21 | Inpatient (IN) ==
[2018-09-15] MEDS ORDERED: D5% in Water 1,000 ML IVC PRN (03:15)
[2018-09-15] MEDS ORDERED: *HR* Dextrose 50 % in Water (Syg) 50 ML SYRINGE IVP PRN (03:15)
[2018-09-15] MEDS ORDERED: Dextrose Gel 15 GM/37.5 ML TUBE PO PRN ×2 (03:15)
--- NOTE | 2018-09-15 03:28 | Internal Med History&Physical ---
<Gilbert Hannaina M - Last Filed: 09/15/18 04:56> Date of Encounter: 09/15/18 Time of Encounter: 03:20 Assessment and Plan (1) Acute respiratory failure with hypoxia and hypercapnia Current visit: Yes Status: Acute Patient with hypoxia on his home oxygen, 2 1/2 liters, and has hypercapnia Currently on BiPAP. Continue BiPAP at night and oxygen per NC during the day Patient has never been intubated Initial ABG with pH 7.35, pCO2 82, pO2 52. ABG in the past with pCO2 90-100's Likely due to COPD exacerbation, possible pneumonia and CHF CXR shows moderate cardiomegaly with perihilar pulmonary vasculature and edema, multifocal airspace opacities findings related to alveolar pulmonary edema versus developing airspace disease and pneumonia Plan: Repeat ABG Obtain CT chest with contrast to further evaluate for pneumonia and rule out pulmonary embolism Will do xopenex nebulizers as patient is tachycardic Maintenance fluids at 55cc/hour Broad spectrum abx with IV vancomycin, zosyn, levaquin as patient had recent hospital admission De-escelate abx as necessary IV steroids Blood cultures x2 pending Check sputum culture Check strep pneumonia and legionella urine ag (2) Sepsis Current visit: Yes Status: Acute Patient febrile with leukocystosis, tachycardia and tachypnea Lactate normal. Check timed lactate Likely due to pneumonia Sputum culture in 08/07 grew pseudomonas aeruginosa Blood cultures x2 pending Sputum culture pending IV vancomycin, levaquin, and zosyn and de-escelate MRSA swab pending Maintenance fluids as xray shows perihilar pulmonary vasculature congestion and edema Qualifiers: Sepsis type: sepsis due to unspecified organism Qualified Code(s): A41.9 - Sepsis, unspecified organism (3) Pneumonia Current visit: No Status: Acute CXR with multifocal airspace opacities patient had recent pneumonia treated with IV zosyn and levaquin Has productive cough, fever Broad spectrum abx as above CT chest to further evaluate Qualifiers: Pneumonia type: due to unspecified organism Laterality: unspecified laterality Lung location: unspecified part of lung Qualified Code(s): J18.9 - Pneumonia, unspecified organism (4) Congestive heart failure Current visit: Yes Status: Acute Echocardiogram from 11/02/17 with LVEF 60-65%, mild left ventricular diastolic dysfunction CXR with pulmonary vascular congestion and edema Repeat echocardiogram and check CT chest Qualifiers: Heart failure type: diastolic Heart failure chronicity: unspecified Qualified Code(s): I50.30 - Unspecified diastolic (congestive) heart failure (5) Acute exacerbation of chronic obstructive airways disease Current visit: No Status: Acute Xopenex nebulizers as scheduled as patient is tachycardic BiPAP at night and as needed IV steroids 60mg q6h (6) DM type 2 (diabetes mellitus, type 2) Current visit: No Status: Chronic non-insulin dependent Low dose SSI with diabetic diet hypoglycemia protocol Qualifiers: Diabetes mellitus intermodal dispatcher insulin use: without intermodal dispatcher use Diabetes mellitus complication status: without complication Qualified Code(s): E11.9 - Type 2 diabetes mellitus without complications (7) Coronary artery disease Current visit: No Status: Chronic Resume home medications when medication list reconciled Qualifiers: Coronary Disease-Associated Artery/Lesion type: [place] artery [place] vs. transplanted heart: [place] heart Associated angina: without angina Qualified Code(s): I25.10 - Atherosclerotic heart disease of [place] coronary artery without angina pectoris (8) Hypertension Current visit: No Status: Chronic Patient takes Toprol XL 100mg, will resume Qualifiers: Hypertension type: essential hypertension Qualified Code(s): I10 - Essential (primary) hypertension (9) ELIOT (obstructive sleep apnea) Current visit: No Status: Chronic BiPAP at night and as needed (10) DVT prophylaxis Current visit: Yes Status: Acute SQ heparin Internal Medicine - H&P: HPI Chief complaint: MANOJ History of present illness: Mr. Andres is a 48 year old male with past medical history including COPD on 2 1/2 L O2 per NC during the day and BiPAP at night, diastolic congestive heart failure, diabetes mellitus [id number], gastroesophageal reflux disease, hypertension, obesity presenting with chief complaint of dyspnea that started yesterday. Patient was admitted on September 06 with chief complaint of shortness of breath and admitted for acute on chronic respiratory failure with hypoxia and hypercapnia due to COPD exacerbation, influenza A, pneumonia. The patient was noted to be noncompliant with his BiPAP. During his hospital stay, he received systemic steroids, BiPAP support, IV antibiotics, Tamiflu. Patient clinically improved and was discharged home with 1 more day of Levaquin, one more day of Tamiflu, prednisone taper. Patient was to follow up with his primary care physician and media/instructional designer on discharge. He was discharged on September 10. This past week, the patient states he has been feeling well. Yest erday he complains of sudden shortness of breath that was progressively worsening throughout the day. He complains of productive cough with sputum that is unchanged from the cough that he has had in the past couple weeks. He complains of chills. He denies chest pain, lower extremity swelling, hem optysis, abdominal pain, nausea, vomiting, poor appetite, weakness. He states his breathing treatments do not help. He notes an allergy to spiriva. He went to the emergency department at [facility] to be evaluated for his shortness of breath. He states his compliance with BiPAP at night and states he has been taking all his medications. ER records at [place] were reviewed. Upon arrival to the emergency department, the patient was noted to have a fever of 100.7 degrees Fahrenheit. Patient was also tachycardic and tachypneic. Initial oxygen saturation on 3 L of oxygen was 87%. He was placed on BiPAP with improvement in oxygen saturation. He received albuterol nebulizers. Initial ABG showed pH of 7.35 with PCO2 82, PO2 58, bicarbonate 45. Lab work was notable for a neutrophilic leukocytosis of 17.5. Troponin was less than 0.03. EKG showed sinus tachycardia with no acute ST elevation. Chest x-ray showed moderate cardiomegaly with perihilar pulmonary vasculature and edema with patchy multifocal airspace opacities that may be related to alveolar pulmonary edema versus developing air space disease or pneumonia. The patient also received IV methylprednisolone and IV Rocephin. Daron espinoza was transferred here for further management. On arrival, the patient states he is feeling better. He does have some mild conversational dyspnea. His shortness of breath is improving. Denies chest pain. He has expiratory wheezing in rhonchi bilateral bases. Tachycardia improved to 110's. Afebrile here. Past Med Surg Social Fam HX - Past Medical History Attestation: Yes The following information was validated with the patient. Source: old records reviewed Medical history: arthritis, asthma, CHF, COPD, diabetes, GERD, hyperlipidemia, hypertension, other Additional medical history: WEARS 02 AT 3[place], on a lung transplant list, Psychiatric history: anxiety, depression - Past Surgical History Surgical History: herniorrhaphy, orthopedic, other Additional surgical history: Right rotator cuff repair. L inguinal hernia repair - Social History Smoking Status: Former smoker Smokeless Tobacco Status: No Alcohol use: none Drug use: none, other - Family History Mother Family Member Ethnicity: Non- Living Status: Hx Family Cardiac Disorders: No Hx Family Respiratory Disorders: Yes (Sister COPD) Hx Family Cancer: Yes (mother breast) Hx Family GI Disorders: No Hx Family Endocrine Disorder: No Hx Family Neuromuscular Disorders: No Hx Family Neurologic Disorders: No Hx Family HEENT Disorders: No Hx Family Autoimmune Disorders: No Father Adopted: No Family Member Ethnicity: Non- Living Status: Hx Family Cardiac Disorders: No Hx Family Respiratory Disorders: No Hx Family Cancer: No Hx Family GI Disorders: No Hx Family Endocrine Disorder: Yes (DM) Hx Family Neuromuscular Disorders: No Hx Family Neurologic Disorders: No Hx Family HEENT Disorders: No Hx Family Autoimmune Disorders: No Internal Medicine - H&P: Meds Albuterol Neb [Proventil Neb] 2.5 mg IH TID PRN 06/05/15 [History] ClonazePAM [Klonopin] 0.5 mg PO BID 06/05/15 [History] Docusate [Colace] 100 mg PO DAILY PRN 06/05/15 [History] Glimepiride [Amaryl] 2 mg PO DAILY 06/05/15 [History] Metformin HCl [Glumetza] 500 mg PO BID 06/05/15 [History] Roflumilast [Daliresp] 500 mcg PO DAILY 06/05/15 [History] Albuterol Sulfate [Proair Hfa] 2 puff IH Q4H PRN 02/27/16 [History] Oxygen 3 l NS AD 02/27/16 [History] Potassium Chloride [K-Tab ER] 10 meq PO DAILY 02/27/16 [History] Simvastatin [Zocor] 40 mg PO HS 02/27/16 [History] Furosemide [Lasix] 20 mg PO DAILY PRN 08/27/17 [History] Metoprolol Succinate [Toprol Xl] 100 mg PO BID 11/01/17 [History] [place]-3 Acid Ethyl Esters [Lovaza] 1 gm PO QID 11/01/17 [History] Lactobacillus [Culturelle] 1 each PO BID #10 cap.sprink 09/02/18 [Rx] Aspirin [Adult Aspirin Regimen] 81 mg PO DAILY 09/06/18 [History] Ciclesonide [[place]ves[place]] 2 puff IH BID 09/06/18 [History] Zolpidem [Ambien] 5 mg PO HS PRN 09/06/18 [History] Oseltamivir [Tamiflu] 75 mg PO BID #1 capsule 09/10/18 [Rx] Polyethylene Glycol 3350 [MiraLAX] 17 gm PO DAILY PRN powd.pack 09/10/18 [Rx] levoFLOXacin [Levaquin] 750 mg PO DAILY #1 tablet 09/10/18 [Rx] predniSONE [PredniSONE] 10 mg PO DAILY #30 tablet 09/10/18 [Rx] Allergy/AdvReac Type Severity Reaction Status Date / Time tiotropium Allergy Hives Verified 09/14/18 23:07 [From Spiriva with HandiHaler] All Systems PM: A 10-system review of systems was performed and is negative for pertinent findings except as documented above in the HPI. - Constitutional Constitutional: as per HPI, chills, fever(s) - EENT Eyes: no blurry vision Nose, mouth and throat: no epistaxis, no sore throat - Cardiovascular Cardiovascular ROS IM: no chest pain, no diaphoresis, no edema - Respiratory Respiratory: cough, dyspnea, no hemoptysis - Gastrointestinal Gastrointestinal: no abdominal pain, no diarrhea, no nausea, no vomiting - Genitourinary Genitourinary ROS male: no difficulty urinating, no hematuria - Musculoskeletal Musculoskeletal ROS IM: no muscle weakness, no numbness, no tingling - Integumentary Integumentary IM: no erythema, no rash - Neurological Neurological ROS: no confusion - Constitutional General appearance: Present: A&O X 3, pleasant Exam: Head: atraumatic normocephalic Eyes: normal conjunctiva, PERRL ENT: oral mucosa moist Neck: supple, trachea midline Chest: symmetrical chest rise Respiatory: mild conversational dyspnea. Oxygenating with BiPAP. Poor air movement bilaterally with expiratory wheezing and rhonchorous breath sounds at bilateral bases Cardiovascular: Bilateral radial pulses equal, tachycardic, normal rhythm Abdomen: soft, nontender, nondistended Extremities: No pedal edema, no calf tenderness Neuro: AAOx3, strenght symmetric bilaterally, CN II-XII intact Psych: normal mood and affect Skin: warm, dry, intact Internal Med - H&P Results - Labs CBC & Chem 7: 09/15/18 03:30 09/15/18 03:30 <Sivan Baker - Last Filed: 09/15/18 08:57> Date of Encounter: 09/15/18 Internal Medicine - H&P: HPI History of present illness: Mr. Andres is a 48 year old male All Systems PM: A 10-system review of systems was performed and is negative for pertinent findings except as documented above in the HPI. - Constitutional Vitals: Temp Pulse Resp BP Pulse Ox 97.5 F L 94 16 160/109 97 09/15/18 07:47 09/15/18 07:47 09/15/18 07:47 09/15/18 07:47 09/15/18 07:47 Internal Med - H&P Results - Labs CBC & Chem 7: 09/15/18 03:30 09/15/18 03:30 Labs: Short CBC 09/15/18 Range/Units 03:30 WBC 17.5 H (4.3-11.1) K/mcL Hgb 13.4 (12.9-16.9) g/dL Hct 47.7 (37.5-50.1) % Plt Count 222 (140-400) K/mcL Neutrophils # 16.7 H (1.6-8.9) K/mcL BMP 09/15/18 03:30 Sodium 139 Potassium 4.8 Chloride 97 L Carbon Dioxide 39 H BUN 20 Creatinine 0.61 L Glucose 297 H Calcium 9.1 - ABG Interpretation ABG results: 09/15/18 04:54 ABG pH 7.28 L ABG pCO2 94 H* ABG pO2 87 ABG HCO3 44 H ABG Total CO2 47 H ABG O2 Saturation 94 L ABG Base Excess 12 H - Attending Attestation I performed a history and physical examination of the patient and discussed his management with the resident. I reviewed the resident's note and agree with the assessment and plan of care. Patient currently tolerating BiPAP. We will obtain CTA to rule out PE and further characterize chest x-ray findings. We will escalate antibiotic coverage to cover for healthcare associated organisms. We will obtain repeat ABG. Consider pulmonary consult.
[2018-09-15 03:49] LABS: Basophils % 0.1 %; Hematocrit 47.7 % (37.5-50.1); Hemoglobin 13.4 g/dL (12.9-16.9); Immature Granulocytes % 0.3 % (0-4); Lymphocytes # 0.3 K/mcL (0.6-4.6); Lymphocytes % 1.8 %; Mean Corpuscular HGB Conc 28.1 g/dL (31.6-35.5); Mean Corpuscular Hemoglobin 28.5 pg (28.0-33.3); Mean Corpuscular Volume 101.5 fL (83.0-100.0); Mean Platelet Volume 10.8 fL (9.4-12.4); Monocytes # 0.5 K/mcL (0.0-1.3); Monocytes % 2.6 %; Platelet Count 222 K/mcL (140-400); Red Cell Distribution Width 13.2 % (11.5-14.5); Segmented Neutrophils % 95.2 %
[2018-09-15] MEDS ORDERED: Isovue-370 500 ML BOTTLE IVP ONE (03:49)
[2018-09-15 03:50] LABS: Neutrophils # 16.7 K/mcL (1.6-8.9)
[2018-09-15] MEDS ORDERED: Levalbuterol Neb 1.25 MG/3 ML ONE (03:50)
[2018-09-15] MEDS ORDERED: Albuterol 2.5 MG/3 ML NEBULIZER IH SCH (04:00)
[2018-09-15] MEDS: Levalbuterol Neb 1.25 MG/3 ML IH SCH ×4 (04:00→22:15)
[2018-09-15 04:07] LABS: BUN/Creatinine Ratio 33 (6-26); Blood Urea Nitrogen 20 mg/dL (6-20); Calcium 9.1 mg/dL (8.6-10.3); Carbon Dioxide 39 mEq/L (23-29); Chloride 97 mEq/L (98-107); Glucose 297 mg/dL (70-105); Osmolality,Calculated 302 (280-300); Potassium 4.8 mEq/L (3.5-5.1); Sodium 139 mEq/L (136-145); eGFR For Non-African Americans > 60 (> 60)
[2018-09-15 04:12] LABS: Platelet Estimate Normal (Normal)
[2018-09-15] MEDS: methylPREDNISolone 125 MG/2 ML VIAL IVP SCH ×4 (04:50→23:29)
[2018-09-15] MEDS: 0.9 % Sodium Chloride 1,000 ML IVC SCH (04:50)
[2018-09-15] MEDS ORDERED: Vancomycin 1,750 MG in 0.9 % Sodium Chloride 250 ML IVPB SCH (05:00)
[2018-09-15 05:04] LABS: ABG Base Excess 12 mEq/L (-2 to 3); ABG HCO3 44 mEq/L (21-27); ABG Oxygen Saturation 94 % (95-98); ABG PCO2 94 mmHg (35-45); ABG PH 7.28 pH Units (7.32-7.45); ABG PO2 87 mmHg (85-104); ABG TCO2 47 mEq/L (20-26); Blood Gas PEEP 8 cm H2O; Blood Gas Respiration Rate 8
[2018-09-15] MEDS ORDERED: Naloxone 0.4 MG/ML INJ IVP PRN (05:32)
[2018-09-15] MEDS: *HR* Heparin 5,000 UNIT/ML VIAL SQ SCH ×3 (05:35→20:29)
[2018-09-15] MEDS: Aspirin Enteric Coated 81 MG Tablet PO SCH (08:00)
[2018-09-15] MEDS: Piperacillin/Tazobactam 3.375 GM in 0.9 % Sodium Chloride Mini Bag 100 ML IVPB SCH ×3 (08:00→23:28)
[2018-09-15] MEDS: Levofloxacin 750 MG/150 ML 750 MG/150 ML BAG IVPB SCH (08:02)
[2018-09-15] MEDS: Insulin LISPRO 300 UNITS/3 ML VIAL SQ SCH ×4 (08:03→20:31)
[2018-09-15] MEDS: Metoprolol XL (24 HR) Succ 50 MG TAB.ER.24H PO SCH ×2 (08:04→20:28)
[2018-09-15] MEDS ORDERED: Aminoglycoside Consult 1 EACH MC ONE (08:18)
[2018-09-15] MEDS: *HR* OxyCODONE/APAP 5/325 TABLET PO PRN ×3 (09:47→22:01)
--- NOTE | 2018-09-15 13:12 | Internal Med Progress Note ---
Hospitalist Progress Note - Encounter Date of Encounter: 09/15/18 Time of Encounter: 09:00 - Subjective Interval History: Patient feels less shortness of breath after treatment. Still have nonproductive cough. Denies fever. Denies chest pain. - Exam Vitals: Temp Pulse Resp BP Pulse Ox 97.6 F 90 24 135/77 92 09/15/18 12:06 09/15/18 12:06 09/15/18 12:06 09/15/18 12:06 09/15/18 12:06 Exam: Pt is AAO x 3, in mild respiratory distress HEENT: NC/AT, PERRL Neck: Supple, no JVD, no LAD Lungs: Bilateral scattered wheezing, no rhonchi or crackles Heart: S1S2, RRR Abd: Soft, nontender, BS present Ext: ROM wnl, no pedal edema Neuro: No focal deficit - Assessment and Plan (1) Acute respiratory failure with hypoxia and hypercapnia Current Visit: Yes Status: Acute Assessment and Plan: Patient has a history of COPD on home oxygen and home BiPAP. Patient has a worsening shortness of breath with chest x-ray shows multifocal pneumonia. - Continue supportive treatment with oxygen and BiPAP - Repeat ABG (2) DVT prophylaxis Current Visit: Yes Status: Acute Assessment and Plan: Heparin SC (3) Acute exacerbation of chronic obstructive pulmonary disease (COPD) Current Visit: No Status: Acute Assessment and Plan: Patient has a history of COPD. Acute exacerbation triggered by multifocal pneumonia. - Continue antibiotic treatment for pneumonia - Continue steroid and bronchodilator - Respiratory viral panel - Continue symptomatic and supportive treatment (4) Healthcare-associated pneumonia Current Visit: No Status: Acute Assessment and Plan: We will continue treat patient with Vanco, Zosyn, and Levaquin - MRSA screen pending - Sputum culture pending - Respiratory viral panel is pending (5) DM type 2 (diabetes mellitus, type 2) Current Visit: No Status: Chronic Assessment and Plan: Continue sliding scale insulin coverage (6) ELIOT (obstructive sleep apnea) Current Visit: No Status: Chronic Assessment and Plan: Continue BiPAP during night at this point. Patient uses CPAP with oxygen during night at home - Time Spent with Patient Total time spent is greater than 50% in coordination of care (as documented) at patient's floor/unit and/or counseling patient: 40 minutes Greater than 35 minutes Plan of Care Discussed with: patient Internal Medicine: Result - Labs CBC & Chem 7: 09/15/18 03:30 09/15/18 03:30 Labs: Short CBC 09/15/18 Range/Units 03:30 WBC 17.5 H (4.3-11.1) K/mcL Hgb 13.4 (12.9-16.9) g/dL Hct 47.7 (37.5-50.1) % Plt Count 222 (140-400) K/mcL Neutrophils # 16.7 H (1.6-8.9) K/mcL BMP 09/15/18 03:30 Sodium 139 Potassium 4.8 Chloride 97 L Carbon Dioxide 39 H BUN 20 Creatinine 0.61 L Glucose 297 H Calcium 9.1 - ABG Interpretation ABG results: ABG ABG pH 7.28 pH Units (7.32-7.45) L 09/15/18 04:54 ABG pCO2 94 mmHg (35-45) H* 09/15/18 04:54 ABG pO2 87 mmHg (85-104) 09/15/18 04:54 ABG O2 Saturation 94 % (95-98) L 09/15/18 04:54 - Impressions Impressions Echocardiogram 09/15/18 03:53 Impressions: LVEF 60-65%. Mild left ventricular diastolic dysfunction. Normal right ventricular structure and function. Mild tricuspid regurgitation. Mild pulmonary hypertension. Left Ventricular Wall Motion: Rest Echo Findings All wall segments showed normal motion. Findings: Study Quality * Technically adequate exam. ECG Findings * Normal sinus rhythm. Left Ventricle * LVEF 60-65%. * Normal LV chamber size, wall thickness and function. * Mild left ventricular diastolic dysfunction. Right Ventricle * Normal right ventricular structure and function. Left Atrium * Moderately dilated left atrium. Right Atrium * Normal right atrial size. Aortic Valve * No aortic regurgitation. * Aortic valve not well visualized. * No aortic stenosis. Mitral Valve * No mitral regurgitation. * Normal mitral valve structure. * No mitral stenosis. Tricuspid Valve * Normal tricuspid valve structure. * Mild tricuspid regurgitation. * Estimated RA pressure is 3 mmHg. * Estimated RVSP is 37 mmHg. * Mild pulmonary hypertension. Pulmonic Valve * Pulmonic valve is not well visualized. * No pulmonic stenosis. * No pulmonic regurgitation. Pulmonary Artery * Pulmonary artery not well visualized. Aorta * Normally sized aortic root. Pericardium * There is no pericardial effusion present. Interatrial Septum * No evidence of PFO by color Doppler. IVC * Normal IVC dimensions and inspiratory collapse. Consult Discharge Plan - Plan Referrals: Madeline Sutton, STILL PHOTOGRAPHER [Advanced Practice Nurse] - (I called this am to cancel the patients follow up appointment for today at 1045 left message to cancel and call me for a reschedule on [phone]) (5) DM type 2 (diabetes mellitus, type 2) Qualifiers: Diabetes mellitus shelter insulin use: without shelter use Diabetes mellitus complication status: without complication Qualified Code(s): E11.9 - Type 2 diabetes mellitus without complications
[2018-09-15] MEDS: GuaiFENesin Liq 200 MG/10 ML UDC PO SCH ×3 (14:40→23:28)
[2018-09-15 15:41] LABS: ABG Base Excess 13 mEq/L (-2 to 3); ABG HCO3 44 mEq/L (21-27); ABG Oxygen Saturation 98 % (95-98); ABG PCO2 87 mmHg (35-45); ABG PH 7.31 pH Units (7.32-7.45); ABG PO2 132 mmHg (85-104); ABG TCO2 47 mEq/L (20-26)
[2018-09-15 15:47] LABS: Adenovirus Not Detected (Not Detect); Bordetella Pertussis Not Detected (Not Detect); Chlamydophila pneumoniae Not Detected (Not Detect); Coronavirus 229E Not Detected (Not Detect); Coronavirus HKU1 Not Detected (Not Detect); Coronavirus NL63 Not Detected (Not Detect); Coronavirus OC43 Not Detected (Not Detect); Human Metapneumovirus Not Detected (Not Detect); Human Rhinovirus/Enterovirus Not Detected (Not Detect); Influenza A Subtype 2009 H1 Not Detected (Not Detect); Influenza A Untypeable Not Detected (Not Detect); Influenza B Not Detected (Not Detect); Mycoplasma pneumoniae Not Detected (Not Detect); Parainfluenza Virus 1 Not Detected (Not Detect); Parainfluenza Virus 2 Not Detected (Not Detect); Parainfluenza Virus 3 Not Detected (Not Detect); Parainfluenza Virus 4 Not Detected (Not Detect); Respiratory Syncytial Virus Not Detected (Not Detect)
[2018-09-15] MEDS ORDERED: Insulin LISPRO 300 UNITS/3 ML VIAL SQ SCH (21:00)
[2018-09-15] MEDS ORDERED: Furosemide 40 MG TABLET PO PRN (22:06)
[2018-09-16] MEDS: 0.9 % Sodium Chloride 1,000 ML IVC SCH (00:48)
[2018-09-16 02:43] LABS: Basophils % 0.1 %
[2018-09-16 02:44] LABS: Hematocrit 39.6 % (37.5-50.1); Hemoglobin 11.3 g/dL (12.9-16.9); Immature Granulocytes % 0.4 % (0-4); Lymphocytes # 0.5 K/mcL (0.6-4.6); Lymphocytes % 3.3 %; Mean Corpuscular HGB Conc 28.5 g/dL (31.6-35.5); Mean Corpuscular Hemoglobin 28.5 pg (28.0-33.3); Mean Platelet Volume 10.7 fL (9.4-12.4); Monocytes # 0.6 K/mcL (0.0-1.3); Neutrophils # 12.9 K/mcL (1.6-8.9); Platelet Count 188 K/mcL (140-400); Red Blood Count 3.96 M/mcL (4.19-5.50); Red Cell Distribution Width 13.2 % (11.5-14.5); Segmented Neutrophils % 92.2 %
[2018-09-16 02:59] LABS: BUN/Creatinine Ratio 42 (6-26); Blood Urea Nitrogen 21 mg/dL (6-20); Calcium 8.3 mg/dL (8.6-10.3); Carbon Dioxide 41 mEq/L (23-29); Chloride 100 mEq/L (98-107); Glucose 246 mg/dL (70-105); Osmolality,Calculated 305 (280-300); Potassium 4.7 mEq/L (3.5-5.1); Sodium 142 mEq/L (136-145); eGFR For Non-African Americans > 60 (> 60)
[2018-09-16 03:05] LABS: Hypochromasia Present (Not Present); Platelet Estimate Normal (Normal)
[2018-09-16] MEDS: Levalbuterol Neb 1.25 MG/3 ML IH SCH ×4 (04:07→22:03)
[2018-09-16] MEDS: methylPREDNISolone 125 MG/2 ML VIAL IVP SCH ×2 (05:34→16:37)
[2018-09-16] MEDS: *HR* OxyCODONE/APAP 5/325 TABLET PO PRN ×3 (05:34→17:37)
[2018-09-16] MEDS: GuaiFENesin Liq 200 MG/10 ML UDC PO SCH ×3 (05:34→16:36)
[2018-09-16] MEDS: *HR* Heparin 5,000 UNIT/ML VIAL SQ SCH ×3 (05:34→21:29)
[2018-09-16] MEDS: clonazePAM 0.5 MG TABLET PO SCH ×2 (07:55→16:36)
[2018-09-16] MEDS: Metoprolol XL (24 HR) Succ 50 MG TAB.ER.24H PO SCH ×2 (07:55→21:28)
[2018-09-16] MEDS: Aspirin Enteric Coated 81 MG Tablet PO SCH (07:56)
[2018-09-16] MEDS: Insulin LISPRO 300 UNITS/3 ML VIAL SQ SCH ×4 (07:57→21:29)
[2018-09-16] MEDS: Levofloxacin 750 MG/150 ML 750 MG/150 ML BAG IVPB SCH (07:57)
[2018-09-16] MEDS: Lactobacillus 1 EACH CAP.SPRINK PO SCH ×2 (07:58→21:28)
[2018-09-16] MEDS: Piperacillin/Tazobactam 3.375 GM in 0.9 % Sodium Chloride Mini Bag 100 ML IVPB SCH ×2 (09:48→16:33)
--- NOTE | 2018-09-16 16:23 | Internal Med Progress Note ---
Hospitalist Progress Note - Encounter Date of Encounter: 09/16/18 Time of Encounter: 09:00 - Subjective Interval History: Patient still has cough and shortness of breath. Feels better. No overnight fever. - Exam Vitals: Temp Pulse Resp BP Pulse Ox 98.0 F 82 18 135/83 96 09/16/18 16:16 09/16/18 16:16 09/16/18 16:16 09/16/18 16:16 09/16/18 16:16 Exam: Pt is AAO x 3, in mild respiratory distress HEENT: NC/AT, PERRL Neck: Supple, no JVD, no LAD Lungs: Bilateral scattered wheezing, no rhonchi or crackles Heart: S1S2, RRR Abd: Soft, nontender, BS present Ext: ROM wnl, no pedal edema Neuro: No focal deficit - Assessment and Plan (1) Acute respiratory failure with hypoxia and hypercapnia Current Visit: Yes Status: Acute Assessment and Plan: Patient has a history of COPD on home oxygen and home BiPAP. Patient has a worsening shortness of breath with chest x-ray shows multifocal pneumonia. - Continue supportive treatment with oxygen and BiPAP - Repeat ABG shows improved hypercapnia - Continue treat underlying COPD exacerbation and pneumonia (2) DVT prophylaxis Current Visit: Yes Status: Acute Assessment and Plan: Heparin SC (3) Acute exacerbation of chronic obstructive pulmonary disease (COPD) Current Visit: No Status: Acute Assessment and Plan: Patient has a history of COPD. Acute exacerbation triggered by multifocal pneumonia. - Continue antibiotic treatment for pneumonia - Continue steroid and bronchodilator - Respiratory viral panel - Continue symptomatic and supportive treatment (4) Healthcare-associated pneumonia Current Visit: No Status: Acute Assessment and Plan: We will continue treat patient with Zosyn, and Levaquin - MRSA screen negative, will DC Vanco - Sputum culture pending - Respiratory viral panel is negative (5) DM type 2 (diabetes mellitus, type 2) Current Visit: No Status: Chronic Assessment and Plan: Continue sliding scale insulin coverage (6) ELIOT (obstructive sleep apnea) Current Visit: No Status: Chronic Assessment and Plan: Continue BiPAP during night at this point. Patient uses CPAP with oxygen during night at home - Time Spent with Patient Total time spent is greater than 50% in coordination of care (as documented) at patient's floor/unit and/or counseling patient: 30 minutes 25 - 35 minutes Internal Medicine: Result - Labs CBC & Chem 7: 09/16/18 02:10 09/16/18 02:10 Labs: Short CBC 09/16/18 Range/Units 02:10 WBC 14.0 H (4.3-11.1) K/mcL Hgb 11.3 L D (12.9-16.9) g/dL Hct 39.6 (37.5-50.1) % Plt Count 188 (140-400) K/mcL Neutrophils # 12.9 H (1.6-8.9) K/mcL BMP 09/16/18 02:10 Sodium 142 Potassium 4.7 Chloride 100 Carbon Dioxide 41 H* BUN 21 H Creatinine 0.50 L Glucose 246 H Calcium 8.3 L - ABG Interpretation ABG results: ABG ABG pH 7.31 pH Units (7.32-7.45) L 09/15/18 15:36 ABG pCO2 87 mmHg (35-45) H* 09/15/18 15:36 ABG pO2 132 mmHg (85-104) H 09/15/18 15:36 ABG O2 Saturation 98 % (95-98) 09/15/18 15:36 Consult Discharge Plan - Plan Referrals: Madeline Sutton, BEHAVIORAL SPECIALIST [Advanced Practice Nurse] - (I called this am to cancel the patients follow up appointment for today at 1045 left message to cancel and call me for a reschedule on [phone]) (5) DM type 2 (diabetes mellitus, type 2) Qualifiers: Diabetes mellitus jail insulin use: without caser up use Diabetes mellitus complication status: without complication Qualified Code(s): E11.9 - Type 2 diabetes mellitus without complications
[2018-09-17] MEDS: GuaiFENesin Liq 200 MG/10 ML UDC PO SCH ×4 (00:18→17:12)
[2018-09-17] MEDS: *HR* OxyCODONE/APAP 5/325 TABLET PO PRN ×4 (00:18→18:38)
[2018-09-17] MEDS: Piperacillin/Tazobactam 3.375 GM in 0.9 % Sodium Chloride Mini Bag 100 ML IVPB SCH ×2 (00:19→09:12)
[2018-09-17 01:55] LABS: BUN/Creatinine Ratio 46 (6-26); Blood Urea Nitrogen 23 mg/dL (6-20); Calcium 8.7 mg/dL (8.6-10.3); Carbon Dioxide 39 mEq/L (23-29); Chloride 99 mEq/L (98-107); Glucose 274 mg/dL (70-105); Osmolality,Calculated 305 (280-300); Potassium 4.5 mEq/L (3.5-5.1); Sodium 141 mEq/L (136-145); eGFR For Non-African Americans > 60 (> 60)
[2018-09-17 01:59] LABS: Basophils % 0.1 %; Immature Granulocytes % 0.4 % (0-4)
[2018-09-17 02:01] LABS: Hematocrit 42.6 % (37.5-50.1); Hemoglobin 12.4 g/dL (12.9-16.9); Immature Platelets 5.3 % (1.1-6.1); Lymphocytes # 0.6 K/mcL (0.6-4.6); Lymphocytes % 3.6 %; Mean Corpuscular HGB Conc 29.1 g/dL (31.6-35.5); Mean Corpuscular Hemoglobin 28.8 pg (28.0-33.3); Mean Corpuscular Volume 99.1 fL (83.0-100.0); Mean Platelet Volume 11.3 fL (9.4-12.4); Monocytes # 0.8 K/mcL (0.0-1.3); Monocytes % 4.7 %; Platelet Count 235 K/mcL (140-400); Red Cell Distribution Width 13.3 % (11.5-14.5); Segmented Neutrophils % 91.2 %
[2018-09-17 02:29] LABS: Platelet Estimate Normal (Normal)
[2018-09-17] MEDS: Levalbuterol Neb 1.25 MG/3 ML IH SCH ×4 (03:30→21:45)
[2018-09-17] MEDS: methylPREDNISolone 125 MG/2 ML VIAL IVP SCH ×2 (06:05→17:11)
[2018-09-17] MEDS: *HR* Heparin 5,000 UNIT/ML VIAL SQ SCH ×3 (06:05→21:13)
[2018-09-17] MEDS: Levofloxacin 750 MG/150 ML 750 MG/150 ML BAG IVPB SCH (07:45)
[2018-09-17] MEDS: Insulin LISPRO 300 UNITS/3 ML VIAL SQ SCH ×4 (07:45→21:19)
[2018-09-17] MEDS: Lactobacillus 1 EACH CAP.SPRINK PO SCH ×2 (09:13→21:12)
[2018-09-17] MEDS: Metoprolol XL (24 HR) Succ 50 MG TAB.ER.24H PO SCH ×2 (09:13→21:13)
[2018-09-17] MEDS: Aspirin Enteric Coated 81 MG Tablet PO SCH (09:13)
[2018-09-17] MEDS: clonazePAM 0.5 MG TABLET PO SCH ×2 (09:13→17:12)
--- NOTE | 2018-09-17 11:39 | Internal Med Progress Note ---
Hospitalist Progress Note - Encounter Date of Encounter: 09/17/18 Time of Encounter: 09:00 - Subjective Interval History: Patient complaining of cough, slightly improved. Less shortness of breath. No fever. Vitals are stable. Compliant with BiPAP during night - Exam Vitals: Temp Pulse Resp BP Pulse Ox 97.4 F L 87 17 139/83 97 09/17/18 11:06 09/17/18 11:06 09/17/18 11:06 09/17/18 11:06 09/17/18 11:06 Exam: Pt is AAO x 3, in NAD HEENT: NC/AT, PERRL Neck: Supple, no JVD, no LAD Lungs: Bilateral scattered wheezing, mild rhonchi on the right lung base, no cr ackles Heart: S1S2, RRR Abd: Soft, nontender, BS present Ext: ROM wnl, no pedal edema Neuro: No focal deficit - Assessment and Plan (1) Acute respiratory failure with hypoxia and hypercapnia Current Visit: Yes Status: Acute Assessment and Plan: Patient has a history of COPD on home oxygen and home BiPAP. Patient has a worsening shortness of breath with chest x-ray shows multifocal pneumonia. - Continue supportive treatment with oxygen and BiPAP - Repeat ABG shows improved hypercapnia - Continue treat underlying COPD exacerbation and pneumonia (2) DVT prophylaxis Current Visit: Yes Status: Acute Assessment and Plan: Heparin SC (3) Acute exacerbation of chronic obstructive pulmonary disease (COPD) Current Visit: No Status: Acute Assessment and Plan: Patient has a history of COPD. Acute exacerbation triggered by multifocal pneumonia. - Continue antibiotic treatment for pneumonia - Continue steroid and bronchodilator - Respiratory viral panel negative - Continue symptomatic and supportive treatment (4) Healthcare-associated pneumonia Current Visit: No Status: Acute Assessment and Plan: We will continue treat patient with Abx - MRSA screen negative, will DC Vanco - Sputum culture shows gram-negative regina, final result is pending - Respiratory viral panel is negative - We will further deescalate antibiotic to Levaquin only. (5) DM type 2 (diabetes mellitus, type 2) Current Visit: No Status: Chronic Assessment and Plan: Continue sliding scale insulin coverage (6) ELIOT (obstructive sleep apnea) Current Visit: No Status: Chronic Assessment and Plan: Continue BiPAP during night at this point. Patient uses CPAP with oxygen during night at home - Time Spent with Patient Total time spent is greater than 50% in coordination of care (as documented) at patient's floor/unit and/or counseling patient: 30 minutes 25 - 35 minutes Plan of Care Discussed with: patient Internal Medicine: Result - Labs CBC & Chem 7: 09/17/18 00:42 09/17/18 00:42 Labs: Short CBC 09/17/18 Range/Units 00:42 WBC 16.4 H (4.3-11.1) K/mcL Hgb 12.4 L (12.9-16.9) g/dL Hct 42.6 (37.5-50.1) % Plt Count 235 (140-400) K/mcL Neutrophils # 15.0 H (1.6-8.9) K/mcL BMP 09/17/18 00:42 Sodium 141 Potassium 4.5 Chloride 99 Carbon Dioxide 39 H BUN 23 H Creatinine 0.50 L Glucose 274 H Calcium 8.7 - ABG Interpretation ABG results: ABG ABG pH 7.31 pH Units (7.32-7.45) L 09/15/18 15:36 ABG pCO2 87 mmHg (35-45) H* 09/15/18 15:36 ABG pO2 132 mmHg (85-104) H 09/15/18 15:36 ABG O2 Saturation 98 % (95-98) 09/15/18 15:36 Consult Discharge Plan - Plan Referrals: Madeline Sutton, BARBER SHOP OPERATOR [Advanced Practice Nurse] - (I called this am to cancel the patients follow up appointment for today at 1045 left message to cancel and call me for a reschedule on [phone]) (5) DM type 2 (diabetes mellitus, type 2) Qualifiers: Diabetes mellitus vermin exterminator insulin use: without vermin exterminator use Diabetes mellitus complication status: without complication Qualified Code(s): E11.9 - Type 2 diabetes mellitus without complications
[2018-09-18] MEDS: *HR* OxyCODONE/APAP 5/325 TABLET PO PRN ×4 (00:32→18:34)
[2018-09-18] MEDS: GuaiFENesin Liq 200 MG/10 ML UDC PO SCH ×4 (00:32→18:34)
[2018-09-18] MEDS: Levalbuterol Neb 1.25 MG/3 ML IH SCH ×4 (04:15→20:59)
[2018-09-18] MEDS: methylPREDNISolone 125 MG/2 ML VIAL IVP SCH (05:53)
[2018-09-18] MEDS: *HR* Heparin 5,000 UNIT/ML VIAL SQ SCH ×3 (05:53→20:39)
[2018-09-18 06:21] LABS: Basophils % 0.1 %; Segmented Neutrophils % 83.3 %
[2018-09-18 06:22] LABS: Hematocrit 40.5 % (37.5-50.1); Hemoglobin 11.5 g/dL (12.9-16.9); Immature Granulocytes % 0.4 % (0-4); Lymphocytes % 9.3 %; Mean Corpuscular HGB Conc 28.4 g/dL (31.6-35.5); Mean Corpuscular Hemoglobin 28.6 pg (28.0-33.3); Mean Corpuscular Volume 100.7 fL (83.0-100.0); Mean Platelet Volume 10.7 fL (9.4-12.4); Monocytes # 0.8 K/mcL (0.0-1.3); Monocytes % 6.9 %; Platelet Count 189 K/mcL (140-400); Red Blood Count 4.02 M/mcL (4.19-5.50); Red Cell Distribution Width 13.3 % (11.5-14.5)
[2018-09-18 06:49] LABS: Platelet Estimate Normal (Normal)
[2018-09-18 06:50] LABS: Hypochromasia Present (Not Present); Stomatocytes 1+ (Not Present)
[2018-09-18 06:51] LABS: BUN/Creatinine Ratio 41 (6-26); Blood Urea Nitrogen 19 mg/dL (6-20); Calcium 8.7 mg/dL (8.6-10.3); Carbon Dioxide 45 mEq/L (23-29); Chloride 100 mEq/L (98-107); Glucose 172 mg/dL (70-105); Osmolality,Calculated 304 (280-300); Potassium 4.4 mEq/L (3.5-5.1); Sodium 144 mEq/L (136-145); eGFR For Non-African Americans > 60 (> 60)
[2018-09-18] MEDS: Insulin LISPRO 300 UNITS/3 ML VIAL SQ SCH ×4 (07:37→20:44)
[2018-09-18] MEDS: Cefepime HCl 2,000 MG in Water for inj. (sterile) 20 ML 20 ML IVP SCH ×2 (09:15→16:05)
[2018-09-18] MEDS: clonazePAM 0.5 MG TABLET PO SCH ×2 (09:16→16:04)
[2018-09-18] MEDS: Lactobacillus 1 EACH CAP.SPRINK PO SCH ×2 (09:16→20:39)
[2018-09-18] MEDS: Aspirin Enteric Coated 81 MG Tablet PO SCH (09:16)
[2018-09-18] MEDS: Metoprolol XL (24 HR) Succ 50 MG TAB.ER.24H PO SCH ×2 (09:16→20:39)
--- NOTE | 2018-09-18 10:47 | Internal Med Progress Note ---
Hospitalist Progress Note - Encounter Date of Encounter: 09/18/18 Time of Encounter: 09:00 - Subjective Interval History: Patient still has cough. Shortness of breath has improved. No fever. - Exam Vitals: Temp Pulse Resp BP Pulse Ox 97.7 F 66 17 149/87 92 09/18/18 06:52 09/18/18 06:52 09/18/18 06:52 09/18/18 06:52 09/18/18 06:52 Exam: Pt is AAO x 3, in NAD HEENT: NC/AT, PERRL Neck: Supple, no JVD, no LAD Lungs: Coarse breath sound bilaterally, scattered wheezing/crackles on the right lung base Heart: S1S2, RRR Abd: Soft, nontender, BS present Ext: ROM wnl, no pedal edema Neuro: No focal deficit - Assessment and Plan (1) Acute respiratory failure with hypoxia and hypercapnia Current Visit: Yes Status: Acute Assessment and Plan: Patient has a history of COPD on home oxygen and home BiPAP. Patient has a worsening shortness of breath with chest x-ray shows multifocal pneumonia. - Continue supportive treatment with oxygen and BiPAP - Repeat ABG shows improved hypercapnia - Continue treat underlying COPD exacerbation and pneumonia - We will consider repeat ABG if patient has mental status change (2) DVT prophylaxis Current Visit: Yes Status: Acute Assessment and Plan: Heparin SC (3) Acute exacerbation of chronic obstructive pulmonary disease (COPD) Current Visit: No Status: Acute Assessment and Plan: Patient has a history of COPD. Acute exacerbation triggered by multifocal pneumonia. - Continue antibiotic treatment for pneumonia - Continue steroid and bronchodilator, taper down steroids gradually. - Respiratory viral panel negative - Continue symptomatic and supportive treatment (4) Healthcare-associated pneumonia Current Visit: No Status: Acute Assessment and Plan: We will continue treat patient with Abx - MRSA screen negative, will DC Vanco - Sputum culture shows gram-negative regina, final result shows Pseudomonas - Respiratory viral panel is negative - We will cont antibiotic with cefepime, further adjustment per sensitivity (5) DM type 2 (diabetes mellitus, type 2) Current Visit: No Status: Chronic Assessment and Plan: Continue sliding scale insulin coverage (6) ELIOT (obstructive sleep apnea) Current Visit: No Status: Chronic Assessment and Plan: Continue BiPAP during night at this point. Patient uses CPAP with oxygen during night at home - Time Spent with Patient Total time spent is greater than 50% in coordination of care (as documented) at patient's floor/unit and/or counseling patient: 30 minutes 25 - 35 minutes Plan of Care Discussed with: patient Internal Medicine: Result - Labs CBC & Chem 7: 09/18/18 05:40 09/18/18 05:40 Labs: Short CBC 09/18/18 Range/Units 05:40 WBC 10.8 (4.3-11.1) K/mcL Hgb 11.5 L (12.9-16.9) g/dL Hct 40.5 (37.5-50.1) % Plt Count 189 (140-400) K/mcL Neutrophils # 9.0 H (1.6-8.9) K/mcL BMP 09/18/18 05:40 Sodium 144 Potassium 4.4 Chloride 100 Carbon Dioxide 45 H* BUN 19 Creatinine 0.46 L Glucose 172 H Calcium 8.7 - ABG Interpretation ABG results: ABG ABG pH 7.31 pH Units (7.32-7.45) L 09/15/18 15:36 ABG pCO2 87 mmHg (35-45) H* 09/15/18 15:36 ABG pO2 132 mmHg (85-104) H 09/15/18 15:36 ABG O2 Saturation 98 % (95-98) 09/15/18 15:36 Consult Discharge Plan - Plan Referrals: Madeline Sutton, NAVAL DESIGNER [Advanced Practice Nurse] - (I called this am to cancel the patients follow up appointment for today at 1045 left message to cancel and call me for a reschedule on [phone]) (5) DM type 2 (diabetes mellitus, type 2) Qualifiers: Diabetes mellitus terminal make up operator insulin use: without chcf use Diabetes mellitus complication status: without complication Qualified Code(s): E11.9 - Type 2 diabetes mellitus without complications
[2018-09-18] MEDS: Furosemide 40 MG TABLET PO SCH (11:23)
[2018-09-19] MEDS: Cefepime HCl 2,000 MG in Water for inj. (sterile) 20 ML 20 ML IVP SCH ×4 (00:45→23:25)
[2018-09-19] MEDS: GuaiFENesin Liq 200 MG/10 ML UDC PO SCH ×5 (00:45→23:25)
[2018-09-19] MEDS: *HR* OxyCODONE/APAP 5/325 TABLET PO PRN ×4 (00:45→21:00)
[2018-09-19] MEDS: Levalbuterol Neb 1.25 MG/3 ML IH SCH ×4 (03:21→22:18)
[2018-09-19] MEDS: *HR* Heparin 5,000 UNIT/ML VIAL SQ SCH ×3 (05:19→21:00)
[2018-09-19 06:28] LABS: Basophils % 0.1 %; Eosinophils % 0.4 %; Lymphocytes % 11.1 %
[2018-09-19 06:29] LABS: Eosinophils # 0.1 K/mcL (0.0-0.6); Hematocrit 49.7 % (37.5-50.1); Hemoglobin 13.8 g/dL (12.9-16.9); Immature Granulocytes % 0.4 % (0-4); Lymphocytes # 1.4 K/mcL (0.6-4.6); Mean Corpuscular HGB Conc 27.8 g/dL (31.6-35.5); Mean Corpuscular Hemoglobin 28.5 pg (28.0-33.3); Mean Corpuscular Volume 102.7 fL (83.0-100.0); Mean Platelet Volume 10.6 fL (9.4-12.4); Monocytes # 0.8 K/mcL (0.0-1.3); Monocytes % 6.2 %; Platelet Count 186 K/mcL (140-400); Red Blood Count 4.84 M/mcL (4.19-5.50); Red Cell Distribution Width 13.2 % (11.5-14.5); Segmented Neutrophils % 81.8 %
[2018-09-19 06:55] LABS: BUN/Creatinine Ratio 38 (6-26); Blood Urea Nitrogen 18 mg/dL (6-20); Calcium 9.4 mg/dL (8.6-10.3); Carbon Dioxide > 45 mEq/L (23-29); Chloride 96 mEq/L (98-107); Glucose 78 mg/dL (70-105); Osmolality,Calculated 303 (280-300); Potassium 4.2 mEq/L (3.5-5.1); Sodium 146 mEq/L (136-145); eGFR For Non-African Americans > 60 (> 60)
[2018-09-19 07:14] LABS: Hypochromasia Present (Not Present); Platelet Estimate Normal (Normal); Stomatocytes 1+ (Not Present)
[2018-09-19] MEDS: Insulin LISPRO 300 UNITS/3 ML VIAL SQ SCH ×4 (07:41→21:07)
[2018-09-19] MEDS: clonazePAM 0.5 MG TABLET PO SCH (08:49)
[2018-09-19] MEDS: Lactobacillus 1 EACH CAP.SPRINK PO SCH ×2 (08:49→21:00)
[2018-09-19] MEDS: Aspirin Enteric Coated 81 MG Tablet PO SCH (08:49)
[2018-09-19] MEDS: Metoprolol XL (24 HR) Succ 50 MG TAB.ER.24H PO SCH ×2 (08:49→20:59)
[2018-09-19] MEDS: Furosemide 40 MG TABLET PO SCH (08:50)
[2018-09-19] MEDS ORDERED: methylPREDNISolone 125 MG/2 ML VIAL IVP SCH (09:00)
--- NOTE | 2018-09-19 10:58 | Internal Med Progress Note ---
Hospitalist Progress Note - Encounter Date of Encounter: 09/19/18 Time of Encounter: 09:00 - Subjective Interval History: Patient still has productive cough with greenish sputum. States shortness of breath has improved to about baseline. No fever. Continue to need oxygen and BiPAP during night. - Exam Vitals: Temp Pulse Resp BP Pulse Ox 97.5 F L 78 20 146/90 92 09/19/18 07:02 09/19/18 07:02 09/19/18 10:28 09/19/18 07:02 09/19/18 10:28 Exam: Pt is AAO x 3, in NAD HEENT: NC/AT, PERRL Neck: Supple, no JVD, no LAD Lungs: Coarse breath sound bilaterally, no wheezes or rhonchi Heart: S1S2, RRR Abd: Soft, nontender, BS present Ext: ROM wnl, no pedal edema Neuro: No focal deficit - Assessment and Plan (1) Acute respiratory failure with hypoxia and hypercapnia Current Visit: Yes Status: Acute Assessment and Plan: Patient has a history of COPD on home oxygen and home BiPAP. Patient has a worsening shortness of breath with chest x-ray shows multifocal pneumonia. - Continue supportive treatment with oxygen and BiPAP - Repeat ABG shows improved hypercapnia - Continue treat underlying COPD exacerbation and pneumonia - We will consider repeat ABG if patient has mental status change (2) DVT prophylaxis Current Visit: Yes Status: Acute Assessment and Plan: Heparin SC (3) Acute exacerbation of chronic obstructive pulmonary disease (COPD) Current Visit: No Status: Acute Assessment and Plan: Patient has a history of COPD. Acute exacerbation triggered by multifocal pneumonia. - Continue antibiotic treatment for pneumonia - Continue steroid and bronchodilator, taper down steroids gradually. - Respiratory viral panel negative - Continue symptomatic and supportive treatment - Wheezing has significantly improved. (4) Healthcare-associated pneumonia Current Visit: No Status: Acute Assessment and Plan: We will continue treat patient with Abx - MRSA screen negative, will DC Vanco - Sputum culture shows gram-negative regina, final result shows Pseudomonas - Respiratory viral panel is negative - We will cont antibiotic with cefepime, further adjustment per sensitivity. Pt needs totally 7 day Abx course. (5) DM type 2 (diabetes mellitus, type 2) Current Visit: No Status: Chronic Assessment and Plan: Continue sliding scale insulin coverage (6) ELIOT (obstructive sleep apnea) Current Visit: No Status: Chronic Assessment and Plan: Continue BiPAP during night at this point. Patient uses BiPAP during night at home - Time Spent with Patient Total time spent is greater than 50% in coordination of care (as documented) at patient's floor/unit and/or counseling patient: 25 - 35 minutes Plan of Care Discussed with: patient Internal Medicine: Result - Labs CBC & Chem 7: 09/19/18 05:29 09/19/18 05:29 Labs: Short CBC 09/19/18 Range/Units 05:29 WBC 12.2 H (4.3-11.1) K/mcL Hgb 13.8 D (12.9-16.9) g/dL Hct 49.7 (37.5-50.1) % Plt Count 186 (140-400) K/mcL Neutrophils # 10.0 H (1.6-8.9) K/mcL BMP 09/19/18 05:29 Sodium 146 H Potassium 4.2 Chloride 96 L Carbon Dioxide > 45 H* BUN 18 Creatinine 0.47 L Glucose 78 Calcium 9.4 - ABG Interpretation ABG results: ABG ABG pH 7.31 pH Units (7.32-7.45) L 09/15/18 15:36 ABG pCO2 87 mmHg (35-45) H* 09/15/18 15:36 ABG pO2 132 mmHg (85-104) H 09/15/18 15:36 ABG O2 Saturation 98 % (95-98) 09/15/18 15:36 Consult Discharge Plan - Plan Referrals: Madeline Sutton, MINE TECHNICIAN [Advanced Practice Nurse] - 09/28/18 10:45 am (Please follow up as schedule...) (5) DM type 2 (diabetes mellitus, type 2) Qualifiers: Diabetes mellitus alf insulin use: without alf use Diabetes mellitus complication status: without complication Qualified Code(s): E11.9 - Type 2 diabetes mellitus without complications
[2018-09-19] MEDS: clonazePAM 0.5 MG TABLET PO PRN (21:01)
[2018-09-20] MEDS: Levalbuterol Neb 1.25 MG/3 ML IH SCH ×4 (04:24→22:02)
[2018-09-20] MEDS: *HR* Heparin 5,000 UNIT/ML VIAL SQ SCH ×2 (06:12→15:19)
[2018-09-20] MEDS: *HR* OxyCODONE/APAP 5/325 TABLET PO PRN ×3 (06:12→18:26)
[2018-09-20] MEDS: GuaiFENesin Liq 200 MG/10 ML UDC PO SCH ×3 (06:12→17:27)
[2018-09-20 06:18] LABS: Basophils % 0.1 %; Eosinophils % 0.4 %; Immature Granulocytes % 0.4 % (0-4); Red Cell Distribution Width 13.1 % (11.5-14.5)
[2018-09-20 06:20] LABS: Eosinophils # 0.1 K/mcL (0.0-0.6); Hematocrit 42.8 % (37.5-50.1); Hemoglobin 12.3 g/dL (12.9-16.9); Lymphocytes # 1.3 K/mcL (0.6-4.6); Lymphocytes % 9.4 %; Mean Corpuscular HGB Conc 28.7 g/dL (31.6-35.5); Mean Corpuscular Hemoglobin 28.5 pg (28.0-33.3); Mean Corpuscular Volume 99.3 fL (83.0-100.0); Mean Platelet Volume 10.3 fL (9.4-12.4); Monocytes # 0.7 K/mcL (0.0-1.3); Monocytes % 4.8 %; Neutrophils # 12.1 K/mcL (1.6-8.9); Platelet Count 189 K/mcL (140-400); Red Blood Count 4.31 M/mcL (4.19-5.50); Segmented Neutrophils % 84.9 %
[2018-09-20 06:45] LABS: BUN/Creatinine Ratio 42 (6-26); Blood Urea Nitrogen 19 mg/dL (6-20); Carbon Dioxide > 45 mEq/L (23-29); Chloride 96 mEq/L (98-107); Glucose 102 mg/dL (70-105); Osmolality,Calculated 304 (280-300); Potassium 4.2 mEq/L (3.5-5.1); Sodium 146 mEq/L (136-145); eGFR For Non-African Americans > 60 (> 60)
[2018-09-20 06:51] LABS: Platelet Estimate Normal (Normal)
[2018-09-20] MEDS: predniSONE 20 MG TABLET PO SCH (08:13)
[2018-09-20] MEDS: Metoprolol XL (24 HR) Succ 50 MG TAB.ER.24H PO SCH ×2 (08:13→21:34)
[2018-09-20] MEDS: Lactobacillus 1 EACH CAP.SPRINK PO SCH ×2 (08:13→21:33)
[2018-09-20] MEDS: Cefepime HCl 2,000 MG in Water for inj. (sterile) 20 ML 20 ML IVP SCH ×2 (08:14→15:46)
[2018-09-20] MEDS: Aspirin Enteric Coated 81 MG Tablet PO SCH (08:14)
[2018-09-20] MEDS: Furosemide 40 MG TABLET PO SCH (08:14)
[2018-09-20] MEDS: Insulin LISPRO 300 UNITS/3 ML VIAL SQ SCH ×4 (08:17→21:36)
--- NOTE | 2018-09-20 11:56 | Internal Med Progress Note ---
Hospitalist Progress Note - Encounter Date of Encounter: 09/20/18 Time of Encounter: 09:00 - Subjective Interval History: Patient still has productive cough with greenish/yellowish sputum. Shortness of breath has improved. No fever overnight. - Exam Vitals: Temp Pulse Resp BP Pulse Ox 97.8 F 88 18 145/90 96 09/20/18 11:00 09/20/18 11:00 09/20/18 11:00 09/20/18 11:00 09/20/18 11:00 Exam: Pt is AAO x 3, in NAD HEENT: NC/AT, PERRL Neck: Supple, no JVD, no LAD Lungs: Coarse breath sound bilaterally, scattered rhonchi on right lung base. Heart: S1S2, RRR Abd: Soft, nontender, BS present Ext: ROM wnl, no pedal edema Neuro: No focal deficit - Assessment and Plan (1) Acute respiratory failure with hypoxia and hypercapnia Current Visit: Yes Status: Acute Assessment and Plan: Patient has a history of COPD on home oxygen and home BiPAP. Patient has a worsening shortness of breath with chest x-ray shows multifocal pneumonia. - Continue supportive treatment with oxygen and BiPAP - Repeat ABG shows improved hypercapnia - Continue treat underlying COPD exacerbation and pneumonia - We will consider repeat ABG if patient has mental status change (2) DVT prophylaxis Current Visit: Yes Status: Acute Assessment and Plan: Heparin SC (3) Acute exacerbation of chronic obstructive pulmonary disease (COPD) Current Visit: No Status: Acute Assessment and Plan: Patient has a history of COPD. Acute exacerbation triggered by multifocal pneumonia. - Continue antibiotic treatment for pneumonia - Continue steroid and bronchodilator, taper down steroids gradually. - Respiratory viral panel negative - Continue symptomatic and supportive treatment - Wheezing has resolved. (4) Healthcare-associated pneumonia Current Visit: No Status: Acute Assessment and Plan: We will continue treat patient with Abx - MRSA screen negative, will DC Vanco - Sputum culture shows gram-negative regina, final result shows Pseudomonas - Respiratory viral panel is negative - We will cont antibiotic with cefepime, further adjustment per sensitivity. Pt needs totally 7 day Abx course. (5) DM type 2 (diabetes mellitus, type 2) Current Visit: No Status: Chronic Assessment and Plan: Continue sliding scale insulin coverage (6) ELIOT (obstructive sleep apnea) Current Visit: No Status: Chronic Assessment and Plan: Continue BiPAP during night at this point. Patient uses BiPAP during night at home - Time Spent with Patient Total time spent is greater than 50% in coordination of care (as documented) at patient's floor/unit and/or counseling patient: 30 minutes 25 - 35 minutes Plan of Care Discussed with: patient Internal Medicine: Result - Labs CBC & Chem 7: 09/20/18 05:21 09/20/18 05:21 Labs: Short CBC 09/20/18 Range/Units 05:21 WBC 14.2 H (4.3-11.1) K/mcL Hgb 12.3 L D (12.9-16.9) g/dL Hct 42.8 (37.5-50.1) % Plt Count 189 (140-400) K/mcL Neutrophils # 12.1 H (1.6-8.9) K/mcL BMP 09/20/18 05:21 Sodium 146 H Potassium 4.2 Chloride 96 L Carbon Dioxide > 45 H* BUN 19 Creatinine 0.45 L Glucose 102 Calcium 9.0 - ABG Interpretation ABG results: ABG ABG pH 7.31 pH Units (7.32-7.45) L 09/15/18 15:36 ABG pCO2 87 mmHg (35-45) H* 09/15/18 15:36 ABG pO2 132 mmHg (85-104) H 09/15/18 15:36 ABG O2 Saturation 98 % (95-98) 09/15/18 15:36 Consult Discharge Plan - Plan Referrals: Madeline Sutton, CREATIVE INTERN [Advanced Practice Nurse] - 09/28/18 10:45 am (Please follow up as schedule...) (5) DM type 2 (diabetes mellitus, type 2) Qualifiers: Diabetes mellitus correction insulin use: without technician terminal and repeater use Diabetes mellitus complication status: without complication Qualified Code(s): E11.9 - Type 2 diabetes mellitus without complications
[2018-09-21] MEDS: clonazePAM 0.5 MG TABLET PO PRN (00:21)
[2018-09-21] MEDS: GuaiFENesin Liq 200 MG/10 ML UDC PO SCH ×4 (00:21→17:08)
[2018-09-21] MEDS: *HR* OxyCODONE/APAP 5/325 TABLET PO PRN ×4 (00:21→18:37)
[2018-09-21] MEDS: *HR* Heparin 5,000 UNIT/ML VIAL SQ SCH ×4 (00:21→22:25)
[2018-09-21] MEDS: Cefepime HCl 2,000 MG in Water for inj. (sterile) 20 ML 20 ML IVP SCH ×3 (00:22→17:08)
[2018-09-21] MEDS: Levalbuterol Neb 1.25 MG/3 ML IH SCH ×4 (03:52→22:52)
[2018-09-21 06:02] LABS: Basophils % 0.1 %; Eosinophils % 0.8 %; Mean Corpuscular Hemoglobin 28.9 pg (28.0-33.3)
[2018-09-21 06:04] LABS: Eosinophils # 0.1 K/mcL (0.0-0.6); Hematocrit 44.5 % (37.5-50.1); Hemoglobin 12.6 g/dL (12.9-16.9); Immature Granulocytes % 0.5 % (0-4); Lymphocytes # 1.6 K/mcL (0.6-4.6); Lymphocytes % 11.3 %; Mean Corpuscular HGB Conc 28.3 g/dL (31.6-35.5); Mean Corpuscular Volume 102.1 fL (83.0-100.0); Mean Platelet Volume 10.2 fL (9.4-12.4); Monocytes # 0.7 K/mcL (0.0-1.3); Monocytes % 4.6 %; Platelet Count 191 K/mcL (140-400); Red Blood Count 4.36 M/mcL (4.19-5.50); Red Cell Distribution Width 13.2 % (11.5-14.5); Segmented Neutrophils % 82.7 %
[2018-09-21 06:19] LABS: Stomatocytes 1+ (Not Present)
[2018-09-21 06:20] LABS: Hypochromasia Present (Not Present); Platelet Estimate Normal (Normal)
[2018-09-21 06:26] LABS: BUN/Creatinine Ratio 41 (6-26); Blood Urea Nitrogen 21 mg/dL (6-20); Calcium 9.2 mg/dL (8.6-10.3); Carbon Dioxide > 45 mEq/L (23-29); Chloride 96 mEq/L (98-107); Glucose 133 mg/dL (70-105); Osmolality,Calculated 305 (280-300); Potassium 4.3 mEq/L (3.5-5.1); Sodium 145 mEq/L (136-145); eGFR For Non-African Americans > 60 (> 60)
[2018-09-21] MEDS: Insulin LISPRO 300 UNITS/3 ML VIAL SQ SCH ×4 (07:43→22:16)
[2018-09-21] MEDS: Furosemide 40 MG TABLET PO SCH (08:20)
[2018-09-21] MEDS: predniSONE 20 MG TABLET PO SCH (08:20)
[2018-09-21] MEDS: Aspirin Enteric Coated 81 MG Tablet PO SCH (08:21)
[2018-09-21] MEDS: Lactobacillus 1 EACH CAP.SPRINK PO SCH ×2 (08:21→22:24)
[2018-09-21] MEDS: Metoprolol XL (24 HR) Succ 50 MG TAB.ER.24H PO SCH ×2 (08:21→22:25)
--- NOTE | 2018-09-21 12:06 | Internal Med Progress Note ---
Hospitalist Progress Note - Encounter Date of Encounter: 09/21/18 Time of Encounter: 11:05 - Subjective Interval History: Patient seen and examined this morning at bedside. No acute overnight events. Breathing significantly improved according to patient. Denies any complaints. Using BiPAP at night. Wants to go home. - Exam Vitals: Temp Pulse Resp BP Pulse Ox 98.6 F 81 17 122/71 91 09/21/18 11:20 09/21/18 11:20 09/21/18 11:20 09/21/18 11:20 09/21/18 11:20 Exam: General: In no acute distress. Respiratory exam: no accessory muscle use. b/l rhonchi diffusely Cardiovascular exam: RRR, +S1, +S2. no murmur, gallop, rubs. GI/Abdominal exam: Non-tender, Non-distended, normal bowel sounds, soft, no pe ritoneal signs. Extremities exam: no pedal edema, pulses palpable in b/l lower extremities. no calf tenderness Neurological exam: CN II-XII intact, AO X3, no focal deficits. Skin exam: No skin rash - Assessment and Plan (1) DM type 2 (diabetes mellitus, type 2) Current Visit: No Status: Chronic (2) ELIOT (obstructive sleep apnea) Current Visit: No Status: Chronic (3) Acute exacerbation of chronic obstructive pulmonary disease (COPD) Current Visit: No Status: Acute (4) Healthcare-associated pneumonia Current Visit: No Status: Acute (5) Acute respiratory failure with hypoxia and hypercapnia Current Visit: Yes Status: Acute (6) DVT prophylaxis Current Visit: Yes Status: Acute - Summary of Assessment and Plan Summary of Assessment and Plan: Acute respiratory failure with hypoxia and hypercapnia - likely secondary to COPD exacerbation and Pneumonia from Psuedomonas margaret scens - h/o COPD on home oxygen and home BiPAP. CXR shows multifocal pneumonia - Continue supportive treatment with oxygen, duonebs and BiPAP. Viral panel negative - c/w tapered steroids. c/w IV cefepime for 7 day treatment. Awaiting C&S which may take longer Healthcare-associated pneumonia - likely pseudomonas florescens - MRSA screen negative - c/w IV cefepime as above DM type 2 - c/w SSI and accuchecks ELIOT - c/w BiPAP during night. DVT prophylaxis - Heparin SC - Time Spent with Patient Total time spent is greater than 50% in coordination of care (as documented) at patient's floor/unit and/or counseling patient: Internal Medicine: Result - Labs CBC & Chem 7: 09/21/18 05:28 09/21/18 05:28 Labs: Short CBC 09/21/18 Range/Units 05:28 WBC 14.5 H (4.3-11.1) K/mcL Hgb 12.6 L (12.9-16.9) g/dL Hct 44.5 (37.5-50.1) % Plt Count 191 (140-400) K/mcL Neutrophils # 12.0 H (1.6-8.9) K/mcL BMP 09/21/18 05:28 Sodium 145 Potassium 4.3 Chloride 96 L Carbon Dioxide > 45 H* BUN 21 H Creatinine 0.51 L Glucose 133 H Calcium 9.2 - ABG Interpretation ABG results: ABG ABG pH 7.31 pH Units (7.32-7.45) L 09/15/18 15:36 ABG pCO2 87 mmHg (35-45) H* 09/15/18 15:36 ABG pO2 132 mmHg (85-104) H 09/15/18 15:36 ABG O2 Saturation 98 % (95-98) 09/15/18 15:36 Consult Discharge Plan - Plan Referrals: Madeline Sutton, MORTUARY OPERATIONS MANAGER [Advanced Practice Nurse] - 09/28/18 10:45 am (Please follow up as schedule...) (1) DM type 2 (diabetes mellitus, type 2) Qualifiers: Diabetes mellitus rodent exterminator insulin use: without rodent exterminator use Diabetes mellitus complication status: without complication Qualified Code(s): E11.9 - Type 2 diabetes mellitus without complications
[2018-09-22] MEDS: *HR* OxyCODONE/APAP 5/325 TABLET PO PRN ×3 (00:27→14:44)
[2018-09-22] MEDS: Cefepime HCl 2,000 MG in Water for inj. (sterile) 20 ML 20 ML IVP SCH ×3 (00:27→16:15)
[2018-09-22] MEDS: clonazePAM 0.5 MG TABLET PO PRN (00:32)
[2018-09-22] MEDS: Levalbuterol Neb 1.25 MG/3 ML IH SCH ×3 (03:58→15:36)
[2018-09-22] MEDS: GuaiFENesin Liq 200 MG/10 ML UDC PO SCH ×3 (05:42→11:33)
[2018-09-22] MEDS: *HR* Heparin 5,000 UNIT/ML VIAL SQ SCH ×2 (05:50→14:40)
[2018-09-22] MEDS: Insulin LISPRO 300 UNITS/3 ML VIAL SQ SCH ×3 (07:59→16:16)
[2018-09-22] MEDS: Lactobacillus 1 EACH CAP.SPRINK PO SCH (08:07)
[2018-09-22] MEDS: predniSONE 20 MG TABLET PO SCH (08:07)
[2018-09-22] MEDS: Metoprolol XL (24 HR) Succ 50 MG TAB.ER.24H PO SCH (08:08)
[2018-09-22] MEDS: Furosemide 40 MG TABLET PO SCH (08:08)
[2018-09-22] MEDS: Aspirin Enteric Coated 81 MG Tablet PO SCH (08:08)
[2018-09-22 16:10] VITALS: BP 135/79
--- NOTE | 2018-09-22 16:35 | Discharge Summary ---
- NOTES TO OUTPATIENT PROVIDER Notes to Outpatient Provider: Patient will need follow-up with pulmonology Orders not resulted at time of discharge: Pending orders 09/15/18 12:20 Sputum Culture [Culture,Sputum with Gram Stain] [] Routine Date of Encounter: 09/22/18 Time of Encounter: 16:30 - Discharge Diagnosis (1) DM type 2 (diabetes mellitus, type 2) Priority: Secondary Status: Chronic Qualifiers: Diabetes mellitus juice tester insulin use: without juice tester use Diabetes mellitus complication status: without complication Qualified Code(s): E11.9 - Type 2 diabetes mellitus without complications (2) ELIOT (obstructive sleep apnea) Priority: Secondary Status: Chronic (3) Acute exacerbation of chronic obstructive pulmonary disease (COPD) Priority: Primary Status: Acute (4) Healthcare-associated pneumonia Priority: Primary Status: Acute (5) Acute respiratory failure with hypoxia and hypercapnia Priority: Primary Status: Acute (6) DVT prophylaxis Priority: Secondary Status: Acute Hospital course: Mr. Andres is a 48 year old male with past medical history of COPD on BiPAP at night and 2 L home oxygen, diastolic CHF, diabetes not on insulin, hypertension and GERD who came in with shortness of breath. He was recently discharged after COPD exacerbation from influenza A and pneumonia. He was treat ed with [facility] at that time. He was transferred here from [facility] for COPD exacerbation with fever and tachycardia and acute respiratory failure from hypoxia and hypercapnia. Patient had some sirs criteria and was started on broad-spectrum antibiotics however was not hypotensive or had lactate. Patient sepsis resolved. Patient's chest x-ray showed multifocal pneumonia. Sputum culture grew pseudomonas fluorescence which had to be sent outside for further sensitivity testing. Patient was continued on cefepime. Blood culture and respiratory infectious panel were negative. Patient previous cultures were sensitive to cefepime. Patient had significantly improved clinically and wanted to go home however given culture sensitivity not reporting yet we will finish a day course of IV antibiotics. Patient to finish his antibiotics today and will be discharged with steroid taper. Patient will need to follow with PCP and pulmonology given history of significant COPD. Discussed following up with PCP given his hyperglycemia might be uncontrolled on steroids. Discharge discussed with: patient, nurse - Time Spent with Patient Total time spent providing and/or coordinating discharge services: Time spent: Greater than 30 minutes (42) - Discharge Medications Prescriptions: Continue Metformin HCl [Glumetza] 500 mg PO BID Roflumilast [Daliresp] 500 mcg PO DAILY Potassium Chloride [K-Tab ER] 10 meq PO DAILY Oxygen 3 l NS CONT Simvastatin [Zocor] 40 mg PO HS Metoprolol Succinate [Toprol Xl] 100 mg PO BID Aspirin [Adult Aspirin Regimen] 81 mg PO DAILY Zolpidem [Ambien] 5 mg PO HS PRN PRN Reason: Sleep Albuterol Sulfate [Ventolin Hfa] 2 puff IH Q4H PRN PRN Reason: Shortness Of Breath Budesonide/Formoterol 160/4.5 [Symbicort 160/4.5] 2 puff IH BID Docusate [Colace] 100 mg PO BID PRN PRN Reason: Constipation FLUoxetine HCl [Prozac] 20 mg PO DAILY Glimepiride [Amaryl] 2 mg PO DAILY Lisinopril 30 mg PO DAILY raNITIdine HCl [Zantac] 150 mg PO BID Albuterol Neb [Proventil Neb] 2.5 mg IH TID PRN PRN Reason: Shortness Of Breath clonazePAM [Clonazepam] 0.5 mg PO BID PRN PRN Reason: Anxiety Furosemide [Lasix] 20 mg PO DAILY PRN PRN Reason: Edema Losartan Potassium [Cozaar] 100 mg PO DAILY Changed predniSONE [PredniSONE] See Taper PO TAPER 12 Days #30 tablet Home Medications: Metformin HCl [Glumetza] 500 mg PO BID 06/05/15 [History] Roflumilast [Daliresp] 500 mcg PO DAILY 06/05/15 [History] Oxygen 3 l NS CONT 02/27/16 [History] Potassium Chloride [K-Tab ER] 10 meq PO DAILY 02/27/16 [History] Simvastatin [Zocor] 40 mg PO HS 02/27/16 [History] Metoprolol Succinate [Toprol Xl] 100 mg PO BID 11/01/17 [History] Aspirin [Adult Aspirin Regimen] 81 mg PO DAILY 09/06/18 [History] Zolpidem [Ambien] 5 mg PO HS PRN 09/06/18 [History] Albuterol Neb [Proventil Neb] 2.5 mg IH TID PRN 09/16/18 [History] Albuterol Sulfate [Ventolin Hfa] 2 puff IH Q4H PRN 09/16/18 [History] Budesonide/Formoterol 160/4.5 [Symbicort 160/4.5] 2 puff IH BID 09/16/18 [History] Docusate [Colace] 100 mg PO BID PRN 09/16/18 [History] FLUoxetine HCl [Prozac] 20 mg PO DAILY 09/16/18 [History] Furosemide [Lasix] 20 mg PO DAILY PRN 09/16/18 [History] Glimepiride [Amaryl] 2 mg PO DAILY 09/16/18 [History] Lisinopril 30 mg PO DAILY 09/16/18 [History] Losartan Potassium [Cozaar] 100 mg PO DAILY 09/16/18 [History] clonazePAM [Clonazepam] 0.5 mg PO BID PRN 09/16/18 [History] raNITIdine HCl [Zantac] 150 mg PO BID 09/16/18 [History] predniSONE [PredniSONE] See Taper PO TAPER 12 Days #30 tablet 09/22/18 [Rx] Allergies/Adverse Reactions: Allergy/AdvReac Type Severity Reaction Status Date / Time tiotropium Allergy Hives Verified 09/16/18 08:44 [From Spir[facility] with [employer]] Date of admission: 09/15/18 05:32 Primary care physician: Rusty Lennon MD Consults: 09/20/18 08:20 Consult to Nurse Navigator [CONS] Routine Comment: chf, pn , copd Discharging clinician: Ras Dietrich Pappas - Constitutional Vitals: Temp Pulse Resp BP Pulse Ox 98.8 F 81 18 135/79 91 09/22/18 16:09 09/22/18 16:09 09/22/18 16:09 09/22/18 16:09 09/22/18 16:09 Exam: General: In no acute distress. Respiratory exam: no accessory muscle use. b/l rhonhi and cracles. Good air entry Cardiovascular exam: RRR, +S1, +S2. no murmur, gallop, rubs. GI/Abdominal exam: Non-tender, Non-distended, normal bowel sounds, soft, no peritoneal signs. Extremities exam: no pedal edema, pulses palpable in b/l lower extremities. no calf tenderness Neurological exam: CN II-XII intact, AO X3, no focal deficits. Skin exam: No skin rash - Patient Status Disposition: Home, Self-Care - Discharge Instructions Follow Up With: Madeline Sutton, [employer]NAGER [Advanced Practice Nurse] - 09/28/18 10:45 am (Please follow up as schedule...)
--- NOTE | 2018-09-22 17:08 | Physician Discharge Referral ---
Home Health/Hosp Referral Info Transfer to: Home Health - Diagnosis (1) DM type 2 (diabetes mellitus, type 2) Status: Chronic (2) ELIOT (obstructive sleep apnea) Status: Chronic (3) Acute exacerbation of chronic obstructive pulmonary disease (COPD) Status: Acute (4) Healthcare-associated pneumonia Status: Acute (5) Acute respiratory failure with hypoxia and hypercapnia Status: Acute (6) DVT prophylaxis Status: Acute - Respiratory Orders Smoking Cessation: Smoking cessation has been advised. For more information, call the [place] [employer] Quit Line at 4-665-KDHD-NOW. - Services Needed Following services are medically necessary services: Nursing, Home Health Aide - Transfer Medications Prescriptions: predniSONE [PredniSONE] See Taper PO TAPER 12 Days #30 tablet Home Medications: Metformin HCl [Glumetza] 500 mg PO BID 06/05/15 [History] Roflumilast [Daliresp] 500 mcg PO DAILY 06/05/15 [History] Oxygen 3 l NS CONT 02/27/16 [History] Potassium Chloride [K-Tab ER] 10 meq PO DAILY 02/27/16 [History] Simvastatin [Zocor] 40 mg PO HS 02/27/16 [History] Metoprolol Succinate [Toprol Xl] 100 mg PO BID 11/01/17 [History] Aspirin [Adult Aspirin Regimen] 81 mg PO DAILY 09/06/18 [History] Zolpidem [Ambien] 5 mg PO HS PRN 09/06/18 [History] Albuterol Neb [Proventil Neb] 2.5 mg IH TID PRN 09/16/18 [History] Albuterol Sulfate [Ventolin Hfa] 2 puff IH Q4H PRN 09/16/18 [History] Budesonide/Formoterol 160/4.5 [Symbicort 160/4.5] 2 puff IH BID 09/16/18 [History] Docusate [Colace] 100 mg PO BID PRN 09/16/18 [History] FLUoxetine HCl [Prozac] 20 mg PO DAILY 09/16/18 [History] Furosemide [Lasix] 20 mg PO DAILY PRN 09/16/18 [History] Glimepiride [Amaryl] 2 mg PO DAILY 09/16/18 [History] Lisinopril 30 mg PO DAILY 09/16/18 [History] Losartan Potassium [Cozaar] 100 mg PO DAILY 09/16/18 [History] clonazePAM [Clonazepam] 0.5 mg PO BID PRN 09/16/18 [History] raNITIdine HCl [Zantac] 150 mg PO BID 09/16/18 [History] predniSONE [PredniSONE] See Taper PO TAPER 12 Days #30 tablet 09/22/18 [Rx] Allergies/Adverse Reactions: Allergy/AdvReac Type Severity Reaction Status Date / Time tiotropium Allergy Hives Verified 09/16/18 08:44 [From Spir[facility] with [employer]] Certification: Further, I certify that my clinical findings support that this patient is homebound (i.e. absences from home require considerable and taxing effort and are for medical reasons or congregational services or infrequently or short duration when for other reasons) because: Homebound Reason: Patient requires assistance of a person or device to safely leave home Attestation: My signature below is to certify that this patient is under my care and that I, or nurse practitioner, or a physician's events and promotions assistant working with me, has a [id number] encounter with this patient.
== END 2018-09-22 17:32 | disposition home or self-care (01) | DRG 871 ==
LOC: 2NNU → SUATTDRO 05:32 → 2ANU 09-16 16:11
PROVIDERS: ADMIT Internal Medicine; ATTEND Internal Medicine

== ENCOUNTER 2019-03-27 08:44 | Inpatient (IN) ==
[2019-03-27] MEDS ORDERED: Naloxone 0.4 MG/ML INJ IVP PRN (10:55)
[2019-03-27] MEDS ORDERED: Vancomycin (wt based) 1,000 MG VIAL IVPB SCH (11:00)
[2019-03-27] MEDS ORDERED: Albuterol 2.5 MG/3 ML NEBULIZER IH PRN (11:01)
[2019-03-27] MEDS ORDERED: Ipratropium/Albuterol Neb 3 ML ONE (11:34)
[2019-03-27] MEDS: Ipratropium/Albuterol Neb 3 ML IH SCH ×3 (11:35→23:35)
[2019-03-27] MEDS ORDERED: Dextrose Gel 15 GM/37.5 ML TUBE PO PRN ×2 (12:21)
[2019-03-27] MEDS ORDERED: D5% in Water 1,000 ML IVC PRN (12:21)
[2019-03-27] MEDS ORDERED: *HR* Dextrose 50 % in Water (Syg) 50 ML SYRINGE IVP PRN (12:21)
[2019-03-27] MEDS: MethylPREDNISolone 40 MG/ML VIAL IVP SCH ×2 (13:04→17:50)
[2019-03-27] MEDS ORDERED: Azithromycin 500 MG in 0.9 % Sodium Chloride 250 ML IVPB SCH (14:00)
[2019-03-27] MEDS ORDERED: Aspirin Enteric Coated 81 MG Tablet PO SCH (15:15)
[2019-03-27] MEDS: Piperacillin/Tazobactam 3.375 GM in 0.9 % Sodium Chloride Mini Bag 100 ML IVPB SCH (16:42)
[2019-03-27] MEDS: Aztreonam 2,000 MG in 0.9 % Sodium Chloride Mini Bag 100 ML IVPB SCH (17:40)
[2019-03-27 17:45] LABS: Influenza A PCR Negative (Negative); Influenza B PCR Negative (Negative); Resp. Syncytial Virus PCR Negative (Negative)
[2019-03-27] MEDS: Insulin LISPRO 300 UNITS/3 ML VIAL SQ SCH (17:50)
[2019-03-27] MEDS: Famotidine 20 MG TABLET PO SCH (19:57)
[2019-03-27] MEDS: *HR* HYDROcodone/Acet 5/325 mg TABLET PO PRN (20:02)
[2019-03-28] MEDS: Insulin LISPRO 300 UNITS/3 ML VIAL SQ SCH ×5 (00:12→20:05)
[2019-03-28] MEDS: Ipratropium/Albuterol Neb 3 ML IH SCH ×4 (03:50→23:19)
[2019-03-28 05:21] LABS: Hemoglobin 13.8 g/dL (12.9-16.9)
[2019-03-28 05:23] LABS: Hematocrit 49.6 % (37.5-50.1); Mean Corpuscular HGB Conc 27.8 g/dL (31.6-35.5); Mean Corpuscular Hemoglobin 27.8 pg (28.0-33.3); Platelet Count 192 K/mcL (140-400); Red Blood Count 4.96 M/mcL (4.19-5.50); Red Cell Distribution Width 15.1 % (11.5-14.5)
[2019-03-28 05:35] LABS: BUN/Creatinine Ratio 24 (6-26); Blood Urea Nitrogen 30 mg/dL (6-20); Calcium 9.2 mg/dL (8.6-10.3); Carbon Dioxide 32 mEq/L (23-29); Chloride 102 mEq/L (98-107); Glucose 138 mg/dL (70-105); Magnesium 1.9 mg/dL (1.6-2.6); Osmolality,Calculated 296 (280-300); Potassium 5.1 mEq/L (3.5-5.1); Sodium 139 mEq/L (136-145); eGFR For African Americans > 60 (> 60); eGFR For Non-African Americans > 60 (> 60)
[2019-03-28 05:52] LABS: White Blood Count 37.4 K/mcL (4.3-11.1)
[2019-03-28] MEDS ORDERED: *HR* Enoxaparin 40 MG/0.4 ML SYRINGE SQ SCH (06:00)
[2019-03-28] MEDS: *HR* HYDROcodone/Acet 5/325 mg TABLET PO PRN ×4 (06:09→20:06)
[2019-03-28] MEDS: MethylPREDNISolone 40 MG/ML VIAL IVP SCH ×4 (06:09→17:00)
[2019-03-28 06:54] LABS: Lymphocytes # 1.5 K/mcL (0.6-4.6); Monocytes # 0.8 K/mcL (0.0-1.3); Neutrophils # 35.2 K/mcL (1.6-8.9)
[2019-03-28 06:55] LABS: Platelet Estimate Normal (Normal); Toxic Granulation Present (Not Present)
[2019-03-28] MEDS: Famotidine 20 MG TABLET PO SCH ×2 (08:00→20:06)
[2019-03-28] MEDS: Piperacillin/Tazobactam 3.375 GM in 0.9 % Sodium Chloride Mini Bag 100 ML IVPB SCH ×4 (08:00→23:45)
[2019-03-28] MEDS: Aztreonam 2,000 MG in 0.9 % Sodium Chloride Mini Bag 100 ML IVPB SCH ×2 (08:00)
[2019-03-28] MEDS ORDERED: Furosemide 20 MG TABLET PO PRN ×2 (08:48→09:42)
[2019-03-28] MEDS ORDERED: FLUoxetine 20 MG CAPSULE PO SCH (09:00)
[2019-03-28] MEDS ORDERED: Aspirin Enteric Coated 81 MG Tablet PO SCH (09:00)
[2019-03-28] MEDS ORDERED: *HR* FentaNYL (PF) 100 MCG/2 ML VIAL ONE (09:08)
[2019-03-28] MEDS ORDERED: *HR* Propofol 200 MG/20 ML VIAL IVP ONE (09:08)
[2019-03-28] MEDS ORDERED: Lidocaine -MPF 2% 2 ML VIAL ONE (09:10)
[2019-03-28] MEDS ORDERED: *HR* Succinylcholine 200 MG/10 ML VIAL IVP ONE (09:10)
[2019-03-28] MEDS ORDERED: Lidocaine -MPF 4% 5 ML AMPUL ONE (09:10)
[2019-03-28] MEDS ORDERED: Dextrose Gel 15 GM/37.5 ML TUBE PO PRN ×2 (09:42)
[2019-03-28] MEDS ORDERED: Albuterol 2.5 MG/3 ML NEBULIZER IH PRN (09:42)
[2019-03-28] MEDS ORDERED: *HR* Dextrose 50 % in Water (Syg) 50 ML SYRINGE IVP PRN (09:42)
[2019-03-28] MEDS ORDERED: Naloxone 0.4 MG/ML INJ IVP PRN (09:42)
[2019-03-28] MEDS ORDERED: D5% in Water 1,000 ML IVC PRN (09:42)
[2019-03-28] MEDS: Ringers Solution, Lactated 1,000 ML IVC SCH (09:50)
[2019-03-28] MEDS ORDERED: Budesonide/Formoterol 160/4.5 1 PUFF INH IH SCH (10:00)
[2019-03-28] MEDS ORDERED: MethylPREDNISolone 40 MG/ML VIAL IVP ONE ×2 (12:00)
[2019-03-28 12:13] LABS: INR 1.2; Prothrombin Time 13.7 Seconds (9.4-12.1)
[2019-03-28] MEDS: Azithromycin 500 MG in 0.9 % Sodium Chloride 250 ML IVPB SCH (14:12)
[2019-03-28] MEDS ORDERED: Gentamicin 430 MG in 0.9 % Sodium Chloride 100 ML IVPB SCH (15:00)
[2019-03-28] MEDS ORDERED: Aztreonam 2,000 MG in 0.9 % Sodium Chloride Mini Bag 100 ML IVPB SCH (16:00)
[2019-03-28] MEDS ORDERED: Aminoglycoside Consult 1 EACH MC ONE (16:32)
[2019-03-28] MEDS ORDERED: GENTAMICIN IVPB ONE (17:00)
[2019-03-28] MEDS ORDERED: SODIUM CHLORIDE 0.9% IVPB ONE (17:00)
[2019-03-28] MEDS ORDERED: MethylPREDNISolone 40 MG/ML VIAL IVP SCH (18:00)
[2019-03-28] MEDS: Budesonide/Formoterol 160/4.5 1 PUFF INH IH SCH (23:20)
[2019-03-29] MEDS: *HR* HYDROcodone/Acet 5/325 mg TABLET PO PRN ×3 (02:44→14:18)
[2019-03-29] MEDS: Ipratropium/Albuterol Neb 3 ML IH SCH ×4 (03:46→22:14)
[2019-03-29 04:46] LABS: Basophils % 0.1 %; Lymphocytes % 2.4 %; Red Cell Distribution Width 15.3 % (11.5-14.5)
[2019-03-29 04:48] LABS: Hematocrit 41.5 % (37.5-50.1); Hemoglobin 11.7 g/dL (12.9-16.9); Immature Granulocytes % 0.6 % (0-4); Lymphocytes # 0.6 K/mcL (0.6-4.6); Mean Corpuscular HGB Conc 28.2 g/dL (31.6-35.5); Mean Corpuscular Volume 99.3 fL (83.0-100.0); Mean Platelet Volume 12.2 fL (9.4-12.4); Monocytes # 0.9 K/mcL (0.0-1.3); Monocytes % 3.7 %; Neutrophils # 22.5 K/mcL (1.6-8.9); Platelet Count 173 K/mcL (140-400); Red Blood Count 4.18 M/mcL (4.19-5.50); Segmented Neutrophils % 93.2 %; White Blood Count 24.1 K/mcL (4.3-11.1)
[2019-03-29 05:09] LABS: BUN/Creatinine Ratio 33 (6-26); Blood Urea Nitrogen 44 mg/dL (6-20); Calcium 8.6 mg/dL (8.6-10.3); Carbon Dioxide 30 mEq/L (23-29); Chloride 105 mEq/L (98-107); Glucose 176 mg/dL (70-105); Osmolality,Calculated 307 (280-300); Potassium 4.7 mEq/L (3.5-5.1); Sodium 141 mEq/L (136-145); eGFR For African Americans > 60 (> 60); eGFR For Non-African Americans 58 (> 60)
[2019-03-29 05:13] LABS: Platelet Estimate Normal (Normal)
[2019-03-29] MEDS: *HR* Enoxaparin 40 MG/0.4 ML SYRINGE SQ SCH (06:24)
[2019-03-29] MEDS: MethylPREDNISolone 40 MG/ML VIAL IVP SCH (06:24)
[2019-03-29] MEDS: Aspirin Enteric Coated 81 MG Tablet PO SCH (08:16)
[2019-03-29] MEDS: Piperacillin/Tazobactam 3.375 GM in 0.9 % Sodium Chloride Mini Bag 100 ML IVPB SCH ×2 (08:16→17:13)
[2019-03-29] MEDS: Famotidine 20 MG TABLET PO SCH ×2 (08:16→20:30)
[2019-03-29] MEDS: FLUoxetine 20 MG CAPSULE PO SCH (08:16)
[2019-03-29] MEDS: Insulin LISPRO 300 UNITS/3 ML VIAL SQ SCH ×4 (08:21→20:32)
[2019-03-29] MEDS: Ringers Solution, Lactated 1,000 ML IVC SCH (08:21)
[2019-03-29] MEDS: Budesonide/Formoterol 160/4.5 1 PUFF INH IH SCH ×2 (09:45→22:14)
[2019-03-29] MEDS: Sennosides/Docusate Sodium TABLET PO SCH ×2 (11:59→20:30)
[2019-03-29] MEDS: Azithromycin 500 MG in 0.9 % Sodium Chloride 250 ML IVPB SCH (14:19)
[2019-03-29] MEDS ORDERED: predniSONE 20 MG TABLET PO SCH (17:00)
[2019-03-29] MEDS: *HR* HYDROcodone/Acet 10/325 mg TABLET PO PRN (17:35)
[2019-03-30] MEDS: Piperacillin/Tazobactam 3.375 GM in 0.9 % Sodium Chloride Mini Bag 100 ML IVPB SCH ×4 (00:22→23:40)
[2019-03-30] MEDS: *HR* HYDROcodone/Acet 10/325 mg TABLET PO PRN ×6 (00:22→23:44)
[2019-03-30] MEDS: Melatonin 3 MG TABLET PO PRN (01:32)
[2019-03-30] MEDS: Ringers Solution, Lactated 1,000 ML IVC SCH (03:06)
[2019-03-30] MEDS: Ipratropium/Albuterol Neb 3 ML IH SCH ×4 (04:34→22:39)
[2019-03-30 04:55] LABS: Basophils % 0.1 %; Immature Granulocytes % 0.3 % (0-4); Segmented Neutrophils % 86.6 %
[2019-03-30 04:57] LABS: Hematocrit 38.6 % (37.5-50.1); Hemoglobin 10.9 g/dL (12.9-16.9); Lymphocytes % 6.3 %; Mean Corpuscular HGB Conc 28.2 g/dL (31.6-35.5); Mean Corpuscular Hemoglobin 27.7 pg (28.0-33.3); Mean Corpuscular Volume 98.2 fL (83.0-100.0); Mean Platelet Volume 12.3 fL (9.4-12.4); Monocytes % 6.7 %; Platelet Count 159 K/mcL (140-400); Red Blood Count 3.93 M/mcL (4.19-5.50); Red Cell Distribution Width 15.4 % (11.5-14.5); White Blood Count 15.4 K/mcL (4.3-11.1)
[2019-03-30] MEDS ORDERED: GENTAMICIN IVPB SCH ×2 (05:00→08:00)
[2019-03-30] MEDS ORDERED: SODIUM CHLORIDE 0.9% IVPB SCH ×2 (05:00→08:00)
[2019-03-30 05:10] LABS: BUN/Creatinine Ratio 38 (6-26); Blood Urea Nitrogen 42 mg/dL (6-20); Calcium 8.5 mg/dL (8.6-10.3); Carbon Dioxide 33 mEq/L (23-29); Chloride 108 mEq/L (98-107); Glucose 125 mg/dL (70-105); Osmolality,Calculated 308 (280-300); Potassium 4.2 mEq/L (3.5-5.1); Sodium 143 mEq/L (136-145); eGFR For African Americans > 60 (> 60); eGFR For Non-African Americans > 60 (> 60)
[2019-03-30] MEDS: *HR* Enoxaparin 40 MG/0.4 ML SYRINGE SQ SCH (05:33)
[2019-03-30 06:54] LABS: Neutrophils # 13.3 K/mcL (1.6-8.9)
[2019-03-30 06:57] LABS: Hypochromasia Present (Not Present); Platelet Estimate Normal (Normal)
[2019-03-30] MEDS: Insulin LISPRO 300 UNITS/3 ML VIAL SQ SCH ×4 (08:04→20:00)
[2019-03-30] MEDS: Sennosides/Docusate Sodium TABLET PO SCH ×2 (08:56→19:53)
[2019-03-30] MEDS: Aspirin Enteric Coated 81 MG Tablet PO SCH (08:56)
[2019-03-30] MEDS: Famotidine 20 MG TABLET PO SCH ×2 (08:56→19:53)
[2019-03-30] MEDS: Azithromycin 250 MG TABLET PO SCH (08:57)
[2019-03-30] MEDS: FLUoxetine 20 MG CAPSULE PO SCH (08:57)
[2019-03-30] MEDS: predniSONE 20 MG TABLET PO SCH (08:57)
[2019-03-30] MEDS: Budesonide/Formoterol 160/4.5 1 PUFF INH IH SCH ×2 (10:00→22:39)
[2019-03-30] MEDS ORDERED: Aminoglycoside Consult 1 EACH MC ONE (16:32)
[2019-03-30 17:45] LABS: Influenza A PCR Body Fluid NOT DETECTED; Influenza B PCR Body Fluid NOT DETECTED; RVP Body Fluid Source BAL LUL
[2019-03-30 17:46] LABS: Influenza A PCR Body Fluid NOT DETECTED; Influenza B PCR Body Fluid NOT DETECTED; RVP Body Fluid Source BAL RML
[2019-03-31] MEDS: Melatonin 3 MG TABLET PO PRN (00:26)
[2019-03-31] MEDS: *HR* HYDROcodone/Acet 10/325 mg TABLET PO PRN ×3 (03:50→12:47)
[2019-03-31] MEDS: Ipratropium/Albuterol Neb 3 ML IH SCH ×2 (04:03→09:53)
[2019-03-31 04:55] LABS: Hemoglobin 11.8 g/dL (12.9-16.9)
[2019-03-31 04:56] LABS: Hematocrit 41.4 % (37.5-50.1); Mean Corpuscular HGB Conc 28.5 g/dL (31.6-35.5); Mean Corpuscular Hemoglobin 27.8 pg (28.0-33.3); Mean Corpuscular Volume 97.6 fL (83.0-100.0); Mean Platelet Volume 12.2 fL (9.4-12.4); Platelet Count 147 K/mcL (140-400); Red Blood Count 4.24 M/mcL (4.19-5.50); Red Cell Distribution Width 15.4 % (11.5-14.5); White Blood Count 11.7 K/mcL (4.3-11.1)
[2019-03-31 05:15] LABS: BUN/Creatinine Ratio 28 (6-26); Blood Urea Nitrogen 38 mg/dL (6-20); Calcium 8.9 mg/dL (8.6-10.3); Carbon Dioxide 37 mEq/L (23-29); Chloride 104 mEq/L (98-107); Glucose 134 mg/dL (70-105); Osmolality,Calculated 313 (280-300); Potassium 4.4 mEq/L (3.5-5.1); Sodium 146 mEq/L (136-145); eGFR For African Americans > 60 (> 60); eGFR For Non-African Americans 56 (> 60)
[2019-03-31] MEDS: *HR* Enoxaparin 40 MG/0.4 ML SYRINGE SQ SCH (06:48)
[2019-03-31] MEDS: Ringers Solution, Lactated 1,000 ML IVC SCH (07:36)
[2019-03-31] MEDS: Insulin LISPRO 300 UNITS/3 ML VIAL SQ SCH ×3 (07:52→16:01)
[2019-03-31] MEDS: Sennosides/Docusate Sodium TABLET PO SCH (07:54)
[2019-03-31] MEDS: Piperacillin/Tazobactam 3.375 GM in 0.9 % Sodium Chloride Mini Bag 100 ML IVPB SCH ×2 (07:54→16:01)
[2019-03-31] MEDS: Azithromycin 250 MG TABLET PO SCH (07:55)
[2019-03-31] MEDS: FLUoxetine 20 MG CAPSULE PO SCH (07:55)
[2019-03-31] MEDS: Aspirin Enteric Coated 81 MG Tablet PO SCH (07:55)
[2019-03-31] MEDS: Famotidine 20 MG TABLET PO SCH (07:55)
[2019-03-31] MEDS: predniSONE 20 MG TABLET PO SCH (07:55)
[2019-03-31] MEDS ORDERED: 0.9 % Sodium Chloride 500 ML IVC ONE (08:45)
[2019-03-31 08:49] LABS: RSV PCR Body Fluid NOT DETECTED
[2019-03-31 08:49] LABS: RSV PCR Body Fluid NOT DETECTED
[2019-03-31] MEDS: Budesonide/Formoterol 160/4.5 1 PUFF INH IH SCH (09:53)
[2019-03-31 11:23] VITALS: BP 144/81
[2019-03-31] MEDS ORDERED: FLU Vac QV 19-20 (6Month+)/PF 0.5 ML SYRINGE IM ONE (11:52)
== END 2019-03-31 16:33 | disposition home or self-care (01) | DRG 871 ==
LOC: ICNU 10:37 → SUATTDRO 10:37 → 2ANU 03-28 09:42
PROVIDERS: ADMIT Internal Medicine; ATTEND Family Medicine

== ENCOUNTER 2019-05-30 21:00 | Inpatient (IN) ==
[2019-05-30] MEDS ORDERED: methylPREDNISolone 125 MG/2 ML VIAL IVP ONE (21:06)
[2019-05-30] MEDS ORDERED: Ipratropium/Albuterol Neb 3 ML IH ONE (21:06)
[2019-05-30 21:35] LABS: Basophils % 0.2 %; Eosinophils # 0.1 K/mcL (0.0-0.6); Eosinophils % 0.9 %; Hematocrit 43.2 % (37.5-50.1); Hemoglobin 12.7 g/dL (12.9-16.9); Immature Granulocytes % 0.3 % (0-4); Lymphocytes # 1.2 K/mcL (0.6-4.6); Lymphocytes % 10.1 %; Mean Corpuscular HGB Conc 29.4 g/dL (31.6-35.5); Mean Corpuscular Hemoglobin 28.1 pg (28.0-33.3); Mean Corpuscular Volume 95.6 fL (83.0-100.0); Mean Platelet Volume 10.7 fL (9.4-12.4); Monocytes # 1.1 K/mcL (0.0-1.3); Monocytes % 9.1 %; Neutrophils # 9.5 K/mcL (1.6-8.9); Platelet Count 198 K/mcL (140-400); Red Blood Count 4.52 M/mcL (4.19-5.50); Segmented Neutrophils % 79.4 %; White Blood Count 11.9 K/mcL (4.3-11.1)
[2019-05-30 22:11] LABS: BUN/Creatinine Ratio 24 (6-26); Blood Urea Nitrogen 13 mg/dL (6-20); Calcium 9.3 mg/dL (8.6-10.3); Carbon Dioxide 40 mEq/L (23-29); Chloride 98 mEq/L (98-107); Glucose 104 mg/dL (70-105); Osmolality,Calculated 284 (280-300); Potassium 4.1 mEq/L (3.5-5.1); Sodium 137 mEq/L (136-145); Troponin I < 0.03 ng/mL (< 0.04); eGFR For African Americans > 60 (> 60); eGFR For Non-African Americans > 60 (> 60)
[2019-05-31] MEDS ORDERED: Furosemide 20 MG TABLET PO PRN (02:54)
[2019-05-31] MEDS ORDERED: Naloxone 0.4 MG/ML INJ IVP PRN (03:03)
[2019-05-31] MEDS ORDERED: *HR* Dextrose 50 % in Water (Syg) 50 ML SYRINGE IVP PRN (04:33)
[2019-05-31] MEDS ORDERED: Dextrose Gel 15 GM/37.5 ML TUBE PO PRN ×2 (04:33)
[2019-05-31] MEDS ORDERED: D5% in Water 1,000 ML IVC PRN (04:33)
[2019-05-31] MEDS: Levalbuterol Neb 1.25 MG/3 ML IH SCH ×4 (05:05→22:02)
[2019-05-31] MEDS ORDERED: Levalbuterol Neb 1.25 MG/3 ML ONE (05:06)
[2019-05-31] MEDS: MethylPREDNISolone 40 MG/ML VIAL IVP SCH ×3 (05:27→19:22)
[2019-05-31] MEDS: Insulin LISPRO 300 UNITS/3 ML VIAL SQ SCH ×3 (05:28→18:23)
[2019-05-31] MEDS: Acetaminophen 325 MG TABLET PO PRN (05:40)
[2019-05-31 06:39] LABS: Basophils % 0.1 %; Hemoglobin 12.4 g/dL (12.9-16.9); Immature Granulocytes % 0.4 % (0-4); Lymphocytes # 0.7 K/mcL (0.6-4.6); Mean Corpuscular HGB Conc 29.5 g/dL (31.6-35.5); Mean Corpuscular Hemoglobin 28.2 pg (28.0-33.3); Mean Corpuscular Volume 95.5 fL (83.0-100.0); Mean Platelet Volume 10.8 fL (9.4-12.4); Monocytes # 0.1 K/mcL (0.0-1.3); Monocytes % 0.8 %; Neutrophils # 8.8 K/mcL (1.6-8.9); Platelet Count 205 K/mcL (140-400); Segmented Neutrophils % 91.7 %; White Blood Count 9.7 K/mcL (4.3-11.1)
[2019-05-31 07:00] LABS: BUN/Creatinine Ratio 26 (6-26); Blood Urea Nitrogen 19 mg/dL (6-20); Carbon Dioxide 37 mEq/L (23-29); Chloride 94 mEq/L (98-107); Glucose 289 mg/dL (70-105); Osmolality,Calculated 303 (280-300); Potassium 4.4 mEq/L (3.5-5.1); Sodium 140 mEq/L (136-145); eGFR For African Americans > 60 (> 60); eGFR For Non-African Americans > 60 (> 60)
[2019-05-31] MEDS ORDERED: Ipratropium/Albuterol Neb 3 ML IH SCH (08:00)
[2019-05-31] MEDS: Metoprolol XL (24 HR) Succ 50 MG TAB.ER.24H PO SCH ×2 (08:40→20:40)
[2019-05-31] MEDS: Piperacillin/Tazobactam 3.375 GM in 0.9 % Sodium Chloride Mini Bag 100 ML IVPB SCH ×2 (08:40→18:22)
[2019-05-31] MEDS: Lisinopril 20 MG TABLET PO SCH (08:40)
[2019-05-31] MEDS: FLUoxetine 20 MG CAPSULE PO SCH (08:40)
[2019-05-31] MEDS: Aspirin Enteric Coated 81 MG Tablet PO SCH (08:40)
[2019-05-31] MEDS ORDERED: Aminoglycoside Consult 1 EACH MC ONE (08:45)
[2019-05-31] MEDS ORDERED: NON-FORMULARY MEDICATION 1 EACH EACH (Roflumilast [Daliresp] 500 MCG) PO SCH (09:00)
[2019-05-31] MEDS ORDERED: Budesonide/Formoterol 80/4.5 1 PUFF INH IH SCH (10:00)
[2019-05-31] MEDS: Budesonide/Formoterol 160/4.5 1 PUFF INH IH SCH ×2 (11:35→22:02)
[2019-06-01] MEDS: MethylPREDNISolone 40 MG/ML VIAL IVP SCH ×5 (00:35→23:55)
[2019-06-01] MEDS: Insulin LISPRO 300 UNITS/3 ML VIAL SQ SCH ×5 (00:43→23:58)
[2019-06-01] MEDS: Piperacillin/Tazobactam 3.375 GM in 0.9 % Sodium Chloride Mini Bag 100 ML IVPB SCH ×4 (00:48→18:37)
[2019-06-01] MEDS: Levalbuterol Neb 1.25 MG/3 ML IH SCH ×4 (03:42→22:12)
[2019-06-01 05:31] LABS: Hematocrit 39.6 % (37.5-50.1); Hemoglobin 11.5 g/dL (12.9-16.9); Mean Corpuscular Hemoglobin 28.4 pg (28.0-33.3); Mean Corpuscular Volume 97.8 fL (83.0-100.0); Mean Platelet Volume 11.2 fL (9.4-12.4); Platelet Count 225 K/mcL (140-400); Red Blood Count 4.05 M/mcL (4.19-5.50); Red Cell Distribution Width 14.2 % (11.5-14.5)
[2019-06-01 05:36] LABS: White Blood Count 15.6 K/mcL (4.3-11.1)
[2019-06-01 06:11] LABS: Blood Urea Nitrogen 29 mg/dL (6-20); Calcium 9.2 mg/dL (8.6-10.3); Carbon Dioxide 34 mEq/L (23-29); Chloride 101 mEq/L (98-107); Glucose 215 mg/dL (70-105); Osmolality,Calculated 306 (280-300); Potassium 4.5 mEq/L (3.5-5.1); Sodium 142 mEq/L (136-145)
[2019-06-01 06:29] LABS: BUN/Creatinine Ratio 36 (6-26); eGFR For African Americans > 60 (> 60); eGFR For Non-African Americans > 60 (> 60)
[2019-06-01] MEDS: Aspirin Enteric Coated 81 MG Tablet PO SCH (08:59)
[2019-06-01] MEDS: Metoprolol XL (24 HR) Succ 50 MG TAB.ER.24H PO SCH ×2 (08:59→20:14)
[2019-06-01] MEDS: Lisinopril 20 MG TABLET PO SCH (08:59)
[2019-06-01] MEDS: FLUoxetine 20 MG CAPSULE PO SCH (08:59)
[2019-06-01] MEDS: Budesonide/Formoterol 160/4.5 1 PUFF INH IH SCH ×2 (10:51→22:12)
[2019-06-01] MEDS: Acetaminophen 325 MG TABLET PO PRN (12:55)
[2019-06-01] MEDS: *HR* Heparin 5,000 UNIT/ML VIAL SQ SCH (18:34)
[2019-06-02] MEDS: Piperacillin/Tazobactam 3.375 GM in 0.9 % Sodium Chloride Mini Bag 100 ML IVPB SCH ×3 (02:19→18:29)
[2019-06-02] MEDS: Levalbuterol Neb 1.25 MG/3 ML IH SCH ×4 (03:59→22:42)
[2019-06-02] MEDS: MethylPREDNISolone 40 MG/ML VIAL IVP SCH (06:02)
[2019-06-02] MEDS: *HR* Heparin 5,000 UNIT/ML VIAL SQ SCH ×2 (06:02→18:29)
[2019-06-02] MEDS: Insulin LISPRO 300 UNITS/3 ML VIAL SQ SCH ×4 (06:06→23:04)
[2019-06-02 07:31] LABS: Hematocrit 38.7 % (37.5-50.1); Hemoglobin 11.7 g/dL (12.9-16.9); Mean Corpuscular HGB Conc 30.2 g/dL (31.6-35.5); Mean Corpuscular Hemoglobin 28.3 pg (28.0-33.3); Mean Corpuscular Volume 93.5 fL (83.0-100.0); Mean Platelet Volume 11.1 fL (9.4-12.4); Platelet Count 160 K/mcL (140-400); Red Blood Count 4.14 M/mcL (4.19-5.50); Red Cell Distribution Width 14.3 % (11.5-14.5); White Blood Count 12.8 K/mcL (4.3-11.1)
[2019-06-02 08:12] LABS: BUN/Creatinine Ratio 45 (6-26); Blood Urea Nitrogen 30 mg/dL (6-20); Calcium 8.5 mg/dL (8.6-10.3); Carbon Dioxide 27 mEq/L (23-29); Chloride 104 mEq/L (98-107); Glucose 151 mg/dL (70-105); Osmolality,Calculated 301 (280-300); Potassium 5.6 mEq/L (3.5-5.1); Sodium 141 mEq/L (136-145); eGFR For African Americans > 60 (> 60); eGFR For Non-African Americans > 60 (> 60)
[2019-06-02] MEDS: Metoprolol XL (24 HR) Succ 50 MG TAB.ER.24H PO SCH ×2 (09:57→20:13)
[2019-06-02] MEDS: Lisinopril 20 MG TABLET PO SCH (09:57)
[2019-06-02] MEDS: FLUoxetine 20 MG CAPSULE PO SCH (09:58)
[2019-06-02] MEDS: Aspirin Enteric Coated 81 MG Tablet PO SCH (09:58)
[2019-06-02] MEDS: Budesonide/Formoterol 160/4.5 1 PUFF INH IH SCH ×2 (10:10→22:44)
[2019-06-02] MEDS: *HR* OxyCODONE/APAP 5/325 TABLET PO PRN ×2 (11:19→18:29)
[2019-06-03 01:09] LABS: Hematocrit 41.1 % (37.5-50.1); Hemoglobin 12.5 g/dL (12.9-16.9); Mean Corpuscular HGB Conc 30.4 g/dL (31.6-35.5); Mean Corpuscular Hemoglobin 28.1 pg (28.0-33.3); Mean Corpuscular Volume 92.4 fL (83.0-100.0); Mean Platelet Volume 10.5 fL (9.4-12.4); Platelet Count 247 K/mcL (140-400); Red Blood Count 4.45 M/mcL (4.19-5.50); Red Cell Distribution Width 14.3 % (11.5-14.5)
[2019-06-03 01:29] LABS: BUN/Creatinine Ratio 43 (6-26); Blood Urea Nitrogen 36 mg/dL (6-20); Calcium 8.7 mg/dL (8.6-10.3); Carbon Dioxide 37 mEq/L (23-29); Chloride 103 mEq/L (98-107); Glucose 86 mg/dL (70-105); Osmolality,Calculated 304 (280-300); Potassium 4.2 mEq/L (3.5-5.1); Sodium 143 mEq/L (136-145); eGFR For African Americans > 60 (> 60); eGFR For Non-African Americans > 60 (> 60)
[2019-06-03] MEDS: Piperacillin/Tazobactam 3.375 GM in 0.9 % Sodium Chloride Mini Bag 100 ML IVPB SCH (01:53)
[2019-06-03] MEDS: *HR* OxyCODONE/APAP 5/325 TABLET PO PRN ×2 (01:55→08:13)
[2019-06-03] MEDS: Levalbuterol Neb 1.25 MG/3 ML IH SCH ×2 (03:57→09:43)
[2019-06-03] MEDS: Insulin LISPRO 300 UNITS/3 ML VIAL SQ SCH (05:36)
[2019-06-03] MEDS: *HR* Heparin 5,000 UNIT/ML VIAL SQ SCH (05:37)
[2019-06-03 07:15] VITALS: BP 103/58
[2019-06-03] MEDS: FLUoxetine 20 MG CAPSULE PO SCH (08:13)
[2019-06-03] MEDS: Metoprolol XL (24 HR) Succ 50 MG TAB.ER.24H PO SCH (08:13)
[2019-06-03] MEDS: Lisinopril 20 MG TABLET PO SCH (08:13)
[2019-06-03] MEDS: Aspirin Enteric Coated 81 MG Tablet PO SCH (08:14)
[2019-06-03] MEDS ORDERED: predniSONE 20 MG TABLET PO SCH (09:00)
[2019-06-03] MEDS: Budesonide/Formoterol 160/4.5 1 PUFF INH IH SCH (09:43)
== END 2019-06-03 12:10 | disposition home or self-care (01) | DRG 193 ==
LOC: 3BNU 21:00 → EMEROOARM 21:00 → 3BNU 23:32
PROVIDERS: ADMIT Family Medicine; ATTEND Family Medicine